=== PATIENT | male | born 1990 | race African-American/Black ===

== ENCOUNTER 2020-10-12 09:25 | Outpatient (REF) | payer OTHER, SELFPAY ==
[2020-10-12 11:36] LABS: Eosinophils Percent Auto 0.7 % (0-4); Hematocrit 45.3 % (42-52); Hemoglobin 15.1 g/dl (14.0-18.0); Imm Gran Abs Auto 0.01 X10*3/uL (0.00-0.03); Imm Gran Pct Auto 0.3 % (0.0-0.4); Lymphocytes Absolute Auto 1.1 X10*3/uL (1.2-4.9); Lymphocytes Percent Auto 35.5 % (20-40); MANUAL DIFF FLAG SCAN; Mean Corpuscular HGB Conc 33.3 g/dl (31.0-36.0); Mean Corpuscular Hemoglobin 27.8 pg (27.0-33.0); Mean Corpuscular Volume 83.4 fL (80-98); Mean Platelet Volume 12.7 fL (9.4-12.4); Monocytes Absolute Auto 0.6 X10*3/uL (0.1-1.2); Monocytes Percent Auto 18.9 % (2-11); Neutrophils Absolute Auto 1.3 X10*3/uL (2.0-8.3); Neutrophils Percent Auto 43.6 % (45-73); Platelet Count 141 X10*3/uL (160-400); Red Blood Count 5.43 X10*6/uL (4.60-5.80); Red Cell Distribution Width 14.4 % (11.0-16.0); SCAN SMEAR FLAG 1
[2020-10-12 11:57] LABS: Anion Gap 13 (12-20); Blood Urea Nitrogen 10 mg/dL (9-16); Calcium 9.3 mg/dL (8.4-10.2); Carbon Dioxide 25 mmol/L (22-29); Chloride 104 mmol/L (96-108); Estimated Glomerular Filt Rate > 60; Glucose Random 108 mg/dL (60-115); Potassium 3.9 mmol/L (3.3-5.1); Sodium 138 mmol/L (135-145)
[2020-10-12 12:54] LABS: SLIDE REVIEW VERIFIED
== END 2020-10-12 09:26 | disposition home or self-care (01) ==
LOC: HO.HMGCLDS 09:25
PROVIDERS: Visit Provider Nurse Practitioner Family
DX: R51.9 Headache, unspecified (principal)
CPT/HCPCS: 36415; 80048; 85025

== ENCOUNTER 2020-10-27 07:28 | Outpatient (REF) | payer OTHER, SELFPAY ==
--- NOTE | ~2020-10-27 | CT_ITS ---
EXAMINATION: CT HEAD WITHOUT CONTRAST CLINICAL INFORMATION: Headache. COMPARISON: None TECHNIQUE: Contiguous axial imaging was performed from the skull base to vertex without intravenous administration of contrast. This CT examination was performed using dose optimization techniques as appropriate, variously including the following: *Automated exposure control *Adjustment of mA and/or kV according to patient size (this includes techniques or standardized protocols for targeted exams where dose is matched to indication/reason for exam; i.e. extremities or head) *Use of iterative reconstruction technique DLP: 791 mGy-cm FINDINGS: There is no evidence of acute intracranial hemorrhage or territorial infarction. No abnormal mass effect or midline shift is seen. Vora to white matter differentiation is well preserved. No extra-axial fluid collections are identified. The ventricles are normal in size. There is no abnormal attenuation within the brain parenchyma. The osseous structures and soft tissues are normal. The mastoid air cells and visualized portions of the paranasal sinuses are well aerated. CT/CT head/brain wo con IMPRESSION: No acute intracranial pathology.
== END 2020-10-27 07:29 | disposition home or self-care (01) ==
LOC: HO.CT 07:28
PROVIDERS: Visit Provider Nurse Practitioner Family
DX: R51.9 Headache, unspecified (principal)
CPT/HCPCS: 70450

== ENCOUNTER 2021-01-03 08:53 | Outpatient (REF) | payer OTHER, SELFPAY ==
[2021-01-03 12:01] LABS: Monotest Negative (Negative)
[2021-01-04 17:17] LABS: EBV-VCA IgM Ab <36.00 U/mL
== END 2021-01-03 08:54 | disposition home or self-care (01) ==
LOC: HO.HMGCLDS 08:53
PROVIDERS: Visit Provider Nurse Practitioner Family
DX: B97.89 Other viral agents as the cause of diseases classified elsewhere (principal); J02.8 Acute pharyngitis due to other specified organisms
CPT/HCPCS: 36415; 86308; 86664; 86665

== ENCOUNTER 2021-05-28 16:52 | Outpatient (REF) | payer OTHER, SELFPAY ==
--- NOTE | ~2021-05-28 | XR_ITS ---
EXAMINATION: XR CHEST CLINICAL INFORMATION: Chest pain. COMPARISON: None TECHNIQUE: 2 views of the chest were obtained. FINDINGS: No significant abnormality is noted involving the heart, lungs, mediastinum, bony thorax or soft tissues. XR/XR chest 2V IMPRESSION: Unremarkable examination.
== END 2021-05-28 16:53 | disposition home or self-care (01) ==
LOC: HO.HMGCX 16:52
PROVIDERS: PCP Physician Assistant; Visit Provider Physician Assistant
DX: R07.9 Chest pain, unspecified (principal)
CPT/HCPCS: 71046

== ENCOUNTER 2021-09-17 17:59 | Emergency (ER) | payer SELFPAY ==
[2021-09-17 19:26] VITALS: BP 151/101; PULSE 91; RESP 16; TEMP 36.8; O2SAT 98; BMI 30.7
--- NOTE | 2021-09-17 19:57 | ED.LOWEXIN ---
HPI - Extremity Injury (Lower) General Chief Complaint: Extremity Injury, Lower Stated Complaint: Leg inj Time Seen by Provider: 09/17/21 19:57 Source: patient Mode of arrival: ambulatory Limitations: no limitations History of Present Illness HPI Narrative: Patient is a 30 year old male presenting to the emergency department today with right leg pain. 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 Patient denies any numbness, tingling, dizziness, lightheadedness, abdominal pain, nausea, vomiting, fever, chills, blurry vision, double vision, loss of vision, chest pain, difficulty breathing, shortness of breath, back pain, night sweats, pain with urination, increased urinary frequency, increased urinary urgency, blood in his urine or stool, syncope or a near syncopal episode, bowel incontinence, bladder incontinence, bowel retention, bladder retention, or any other complaints at this time. Patient describes the pain as sharp and going from the top of the back of his left leg to his knee. Patient rates the pain at a 3/10. Onset (ago): hour(s) Place: home Severity: mild Severity scale (1-10): 3 Relieving factors: nothing Exacerbating factors: nothing Other symptoms: none Related Data Previous Rx's Medication Instructions Recorded miscellaneous medical supply #1 ea 08/13/21 (Blood Pressure Cuff) cyclobenzaprine 10 mg tablet 10 mg PO TID PRN 7 Days #20 tab 09/17/21 naproxen 500 mg tablet 500 mg PO BID PRN 7 Days #14 tab 09/17/21 Allergies Allergy/AdvReac Type Severity Reaction Status Date / Time No Known Allergies Allergy Verified 08/13/21 13:33 [No Known Allergies*] Review of Systems Constitutional: Constitutional: Reports no additional constitutional complaints, Denies chills, Denies fever(s) and Denies night sweats Eyes: Eyes: Reports no additional eye complaints, Denies blurry vision, Denies change in vision, Denies diplopia, Denies eye discharge, Denies loss of vision and Denies eye pain ENT: Denies dizziness Cardiovascular: Cardiovascular: Reports no additional cardiovascular complaints, Denies chest pain, Denies lightheadedness, Denies Loss of Consciousness and Denies dyspnea Respiratory: Respiratory: Reports no additional respiratory complaints and Denies dyspnea Gastrointestinal: Gastrointestinal: Reports no additional gastrointestinal complaints, Denies abdominal pain, Denies melena, Denies hematochezia, Denies change in bowel habits and Denies change in stool character Genitourinary: Genitourinary: Reports no additional male genitourinary complaints, Denies hematuria, Denies oliguria, Denies difficulty urinating, Denies dysuria, Denies urinary frequency, Denies urinary hesitancy, Denies urinary incontinence and Denies urinary urgency Musculoskeletal: Musculoskeletal: Reports no additional musculoskeletal complaints, Denies numbness and Denies tingling Comments: sharp pain to the back of the left leg Neurologic: Denies dizziness, Denies loss of vision, Denies numbness and Denies tingling Psychiatric: Psychiatric: Reports no additional psychiatric complaints Endocrine: Endocrine: Reports no additional endocrine complaints Hematologic/Lymphatic: Hematologic/Lymphatic: Reports no additional hematologic/lymphatic complaints Allergic/Immunologic: Allergic/Immunologic: Reports no additional allergic/immunologic complaints PMFSH Past Medical History Attestation statement: The following information was validated with the patient. 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 Exam Vital Signs: Vital Signs: Last Vital Signs Temp 98.3 F 09/17/21 19:26 Pulse 91 09/17/21 19:26 Resp 16 09/17/21 19:26 BP 151/101 H 09/17/21 19:26 Pulse Ox 98 09/17/21 19:26 BMI result Body Mass Index 30.7 Const: General: cooperative, no acute distress, alert and awake Nutritional Appearance: well nourished Orientation/consciousness: patient oriented x3 Limitations: no limitations HENMT: Head: Yes normal to inspection and Yes atraumatic Ears: hearing grossly normal bilaterally and external ears normal General nose exam: Normal external nose present, no nasal discharge noted and no epistaxis Face and sinus: Yes normal facial exam, No abrasion and No laceration Mouth: Normal oral and palatal mucosa present, no drooling and no muffled voice Eyes: General: appearance normal, both eyes and all related structures Periorbital: periorbital findings normal Eyelids: Yes eyelids normal Conjunctivae: conjunctivae normal Pupils: Equal, round and reactive pupils present EOM: EOMs intact bilaterally Neck: Neck: Yes normal visual inspection, Yes full ROM and Yes no lymphadenopathy Chest: Chest palpation & inspection: normal inspection of the chest Resp: Effort & Inspection: normal respiratory effort and able to speak in complete sentences Auscultation: clear to auscultation bilaterally Cardio: Rate: regular rate Rhythm: regular rhythm GI: Inspection: Yes normal to inspection : General: Yes no CVA tenderness Back/Spine/Pelvis: Back: no CVA tenderness Thoracic/Lumbar Spine: thoracic and lumbar spine normal to inspection and thoraco-lumbar ROM normal Neuro: General: patient oriented x3 and moves all extremities Cranial nerves: Yes Equal, round and reactive pupils present Cognition (Neuro): normal cognition Motor exam (neuro): 5/5 motor strength present throughout Sensory Exam: Normal double simultaneous stimulation for sensation Coordination: [id number] test normal Extrem: General: Yes normal to inspection, Yes full ROM and Yes capillary refill normal Psych: Appearance: grossly normal Mental Status: mental status grossly normal Affect: normal affect Attitude: cooperative Thought process: Normal thought process present Thought content: Normal thought content present Insight: Good insight present (Psych) MDM - Extremity Injury (Lower) MDM Narrative Medical decision making narrative: Patient is a 30 year old male presenting to the emergency department today with pain to the back of the right leg. Patient's physical exam was unremarkable, including a normal neurological exam. I explained my physical exam findings to the patient. I answered all questions asked by the patient. Patient received IM Toradol and PO Flexeril which he stated helped his symptoms significantly. I explained to the patient that this is likely a sciatic nerve issue. Patient stated that he would like crutches because standing on the left leg causes pain. I explained to the patient that I can provide him crutches but we do not usually give them to patient's for sciatic nerve pain of the leg. I explained that insurance may not cover this expense. He verbalized understanding and requested them anyway. I stressed the importance of the patient taking his medication as prescribed. I stressed the importance of the patient following up with his primary care provider. I stressed the importance of the patient returning to the emergency department immediately if his symptoms were to worsen or if he were to develop any dizziness, shortness of breath, difficulty breathing, chest pain, blurry vision, loss of vision, nausea, vomiting, abdominal pain, fever, chills, back pain, or any other complaints. Patient verbalized agreement and understanding with this treatment plan and discharge. Differential Diagnosis Differential diagnosis: Unlikely ankle fracture (sciatic nerve pain, left leg pain) Medical Records Attestation: I reviewed the patient's medical records. Discharge Plan Discharge Clinical Impression: Sciatic leg pain Patient Disposition: Home, Self-Care Instructions: Sciatica (ED) Additional Instructions: Follow up with your primary care provider. Return to the emergency department immediately if your symptoms worsen or if you develop any dizziness, shortness of breath, difficulty breathing, chest pain, blurry vision, loss of vision, nausea, vomiting, abdominal pain, fever, chills, back pain, or any other complaints. Prescriptions: New cyclobenzaprine 10 mg tablet 10 mg PO TID PRN (Reason: muscle spasm) 7 Days Qty: 20 0RF naproxen 500 mg tablet 500 mg PO BID PRN (Reason: pain) 7 Days Qty: 14 0RF No Action (DME) Blood Pressure Cuff Misc See Rx Instructions .ROUTE .MEDSUPPLY Qty: 1 0RF Rx Instructions: As directed Referrals: Mike Alfonso PA-C [Primary Care Provider] - 2 days Stand Alone Forms: Work/School Release Interventions: ED Discharge Assessment Last Done: 09/17/21 20:36 Discharge Date/Time: 09/17/21 20:38 Print Language: Turkmen
[2021-09-17] MEDS: Ketorolac Tromethamine 30 MG/ML VIAL IM (20:16)
[2021-09-17] MEDS: Cyclobenzaprine HCl 10 MG TABLET PO (20:16)
== END 2021-09-17 20:38 | disposition home or self-care (01) ==
PROVIDERS: Emergency Provider Emergency Medicine; PCP Physician Assistant
DX: M54.31 Sciatica, right side (principal); M79.661 Pain in right lower leg
CPT/HCPCS: 96372; 99283; 99284; J1885

== ENCOUNTER 2022-05-21 18:29 | Outpatient (REF) | payer BC, SELFPAY ==
[2022-05-22 15:57] LABS: CT PCR NOT DETECTED (Not Detect.); NG PCR DETECTED (Not Detect.)
== END 2022-05-21 18:30 | disposition home or self-care (01) ==
LOC: HO.LNP 18:29
PROVIDERS: Visit Provider Internal Medicine
DX: Z11.3 Encounter for screening for infections with a predominantly sexual mode of transmission (principal); N34.2 Other urethritis
CPT/HCPCS: 87491; 87591

== ENCOUNTER 2022-06-11 12:25 | Emergency (ER) | payer BC, SELFPAY ==
[2022-06-11 12:59] VITALS: BP 129/90; PULSE 84; RESP 16; TEMP 36.1; O2SAT 97; BMI 29.2
--- NOTE | 2022-06-11 13:00 | ED_ITS ---
HPI - General Adult General Chief complaint: Back Pain/Injury <Pilar Nolasco MD - Last Filed: 06/11/22 13:06> Stated complaint: Sciatic pain <Pilar Nolasco MD - Last Filed: 06/11/22 13:06> Time Seen by Provider: 06/11/22 15:53 <Pilar Nolasco MD - Last Filed: 06/11/22 13:06> Source: patient <Elvia Baron SHENG Mejias - Last Filed: 06/11/22 18:30> History of Present Illness HPI narrative: Patient is a 31-year-old male who presents to emergency department for evaluation of atraumatic it acute on chronic right lower back pain radiating to the leg. States that first experienced this in September of 2021, was evaluated in the emergency department and diagnosed with sciatica. States he took 2 medications as prescribed in his pain improved. He has had a few episodes since then but not as severe. Today he states that he awoke from sleep with severe pain to the right lower back radiating down the posterior leg and down to the mid calf. Denies any swelling, redness to the calf. Denies prior history of DVT/PE. Denies recent precipitating injury, fevers, chills, burning with micturition, urinary frequency/urgency/hesitancy, bladder or bowel dysfunction, numbness or tingling of the perineum or bilateral legs. Denies any recent surgical procedures, any known immune compromising conditions, personal history of cancer, or IV drug usage. <Elvia Mejias CNP - Last Filed: 06/11/22 18:30> Related Data Home medications: Previous Rx's Medication Instructions Recorded azithromycin 250 mg tablet See Rx Instructions PO .COMPLEX #4 05/21/22 tabs ciprofloxacin HCl 500 mg tablet 500 mg PO DAILY #1 tab 05/21/22 (Cipro) cyclobenzaprine 10 mg tablet 10 mg PO TID PRN muscle spasm #20 06/11/22 tabs naproxen 500 mg tablet 500 mg PO BID PRN pain #14 tabs 06/11/22 <Pilar Nolasco MD - Last Filed: 06/11/22 13:06> Allergies/adverse reactions: Allergies Allergy/AdvReac Type Severity Reaction Status Date / Time No Known Allergies Allergy Verified 05/21/22 16:42 [No Known Allergies*] <Pilar Nolasco MD - Last Filed: 06/11/22 13:06> Review of Systems Review of Systems: Constitutional: No weight loss, fever, chills, weakness or fatigue. Skin: No rash or itching. Cardiovascular: No chest pain, chest pressure or chest discomfort. No palpitations or pedal edema. Respiratory: No shortness of breath, cough or sputum production. Gastrointestinal: No anorexia, nausea, vomiting or diarrhea. No abdominal pain Genitourinary: No burning micturition. No urinary frequency or incontinence. Neurologic: No headache, dizziness, syncope, unilateral weakness, ataxia, numbness or tingling in the extremities. No change in bowel or bladder control. Musculoskeletal: + Back pain as noted in HPI. No joint pain or stiffness. Hematologic: No bleeding or bruising. Lymphatics: No enlarged lymph nodes. Psychiatric:No depression or anxiety. <Elvia Mejias CNP - Last Filed: 06/11/22 18:30> Yes all other systems are reviewed and are negative <Elvia Mejias CNP - Last Filed: 06/11/22 18:30> FORMERLY [facility], [facility] Past Medical History Attestation statement: The following information was validated with the patient. <Elvia Mejias CNP - Last Filed: 06/11/22 18:30> Source: old records reviewed <Elvia Mejias CNP - Last Filed: 06/11/22 18:30> Surgical History: Surgical History H/O hernia repair <Pilar Nolasco MD - Last Filed: 06/11/22 13:06> Family History Family History: Family History Mother HTN (hypertension) <Pilar Nolasco MD - Last Filed: 06/11/22 13:06> Social History Social History: Social History Housing: House Alcohol intake: current Alcohol intake frequency: a few times a month Alcohol type: wine Patient Tobacco Use Status: Former Tobacco user Substance Use Type: Marijuana Advance Directives: No Advance Directives Information Provided: No service: No Current occupational status: employed 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 <Pilar Nolasco MD - Last Filed: 06/11/22 13:06> Physical Exam ED Vital Signs: Vital Signs - 24 hr 06/11/22 12:59 06/11/22 16:16 Temperature 97 F 98.0 F Pulse Rate 84 65 Respiratory Rate 16 18 Blood Pressure 129/90 H 140/92 H Pulse Oximetry 97 96 Oxygen Delivery Method Room Air Room Air BMI result Body Mass Index 29.2 <Pilar Nolasco MD - Last Filed: 06/11/22 13:06> Vital Signs - 24 hr 06/11/22 12:59 06/11/22 16:16 Temperature 97 F 98.0 F Pulse Rate 84 65 Respiratory Rate 16 18 Blood Pressure 129/90 H 140/92 H Pulse Oximetry 97 96 Oxygen Delivery Method Room Air Room Air BMI result Body Mass Index 29.2 <Elvia Mejias CNP - Last Filed: 06/11/22 18:30> Appearance: Alert.?Oriented to person, place and time. No acute distress.?Normal affect. Eyes: Pupils equal, round and reactive to light.? ENT: Pharynx normal.?? Neck: Normal inspection.? Neck supple.?? CVS: Heart sounds normal. Normal heart rate and rhythm.? Pulses normal; bilateral radial pulses 2+, bilateral posterior tibial/dorsalis pedis pulses 2+.? Respiratory: No respiratory distress.? Lung sounds clear to auscultation bilaterally?? Abdomen: Soft and non-tender. Normoactive bowel sounds. No pulsatile mass.?? Skin: Skin warm and dry.? Normal skin color.? Normal skin turgor.?? Extremities: No lower extremity edema.? No calf ttp? Back: + mild paraspinal muscular tenderness from lumbar region to coccyx. No CVA tenderness. No midline spinal tenderness, step-off's, or deformity. Full ROM intact in bilateral lower extremities. Straight leg test positive on right; Straight leg test negative on left. No rashes, lesions, areas of induration or fluctuance, or signs of infection noted., Neuro: Moves all extremities spontaneously. 5/5 strength in hip extension/flexion, abduction, adduction. Sensation to light touch intact bilaterally. Patellar and Achilles reflex 2+ bilaterally. No ataxia, gait normal and steady. No focal neuro deficits. <Elvia Mejias CNP - Last Filed: 06/11/22 18:30> Course Course Course Narrative: 31M c/o acute on chronic sciatica type pain. no trauma, describes pain from right buttock down posterior RLE. Has not tried anything for this today. Denies sickle cell history or taking any medications for medical conditions. VS Reviewed GEN: NAD EARS: wnl THROAT: wnl LUNGS: CTAB CVS: RRR RLE: neurovasc is intact, pt in wheelchair. ABD: NT/ND <Pilar Nolasco MD - Last Filed: 06/11/22 13:06> Medical Decision Making Medical Decision Making MDM Narrative: Patient is a 31-year-old male who presents emergency department for evaluation of acute on chronic lower back pain. Appears uncomfortable upon movement, however nontoxic. Pain appears most consistent with muscular pain, although cannot completely exclude herniated disc. On neurological exam there are no deficits. Not consistent with spinal fracture, spinal infection, epidural abscess, AAA, epidural abscess, or dissection. No high risk past medical history including incontinence, fever, immunosuppression, recent surgery or lumbar puncture, coagulopathy, significant trauma, recent unintentional weight loss, pulsatile mass, history of cancer, history of TB, history of IV drug use that would warrant MRI or CT. Not consistent with pyelonephritis, urinary tract infection, renal calculi, appendicitis, On exam no concern for cauda equina syndrome. No imaging is currently indicated at this time. Plan for discharge home with new prescription for cyclobenzaprine and naproxen, reviewed worrisome signs and symptoms to return back to emergency department for, advised follow-up with primary care provider, and patient agreed with plan. <Elvia Mejias CNP - Last Filed: 06/11/22 18:30> Differential Diagnoses: Differential diagnosis Differential Diagnosis: The differential diagnosis associated with the patient?s presentation includes: Lumbar strain, lumbar radiculopathy, spinal fracture, spinal infection, epidural abscess, AAA, epidural abscess, dissection, pyelonephritis, urinary tract infection, renal calculi, appendicitis, <Elvia Mejias CNP - Last Filed: 06/11/22 18:30> Tests considered but not performed: Tests Considered But Not Performed The following testing was considered but ultimately not selected after discussio n with patient/family. Urinalysis, no urinary frequency, hesitancy, urgency, or dysuria. Low suspicion for UTI/pyelonephritis. Used shared decision making with patient. Considered lumbar spine x-ray, however atraumatic, low suspicion for fracture or subluxation. Considered CT versus MRI, however no high-risk past medical history, focal neurological findings, a concern for cauda equina syndrome, therefore CT/MRI was deferred. <Elvia Mejias CNP - Last Filed: 06/11/22 18:30> Discharge Plan Discharge Clinical Impression: Lumbar radiculopathy <Pilar Nolasco MD - Last Filed: 06/11/22 13:06> Patient Disposition: Home, Self-Care <Pilar Nolasco MD - Last Filed: 06/11/22 13:06> Instructions: Lumbar Radiculopathy (ED), Lower Back Exercises (ED) <Pilar Nolasco MD - Last Filed: 06/11/22 13:06> Additional Instructions: Be sure to rest, apply ice/heat to the area of pain for 10-15 minutes 4-6 times daily. You can take Tylenol 500 mg, 2 tablets (1,000mg) every 4-6 hours as needed for pain, but not to exceed 3 doses daily (3,000mg).? Prescription for naproxen and cyclobenzaprine were sent to your pharmacy, please use as needed for pain. Cyclobenzaprine is a muscle relaxer which may make you drowsy, he should not drive, drink alcohol, go to work, or operate machinery while taking this medication. Follow-up with your primary care provider for persistent symptoms. Return to emergency department with any new or worsening symptoms or concerns. <Pilar Nolasco MD - Last Filed: 06/11/22 13:06> Prescriptions: New cyclobenzaprine 10 mg tablet 10 mg PO TID PRN (Reason: muscle spasm) Qty: 20 0RF naproxen 500 mg tablet 500 mg PO BID PRN (Reason: pain) Qty: 14 0RF No Action ciprofloxacin HCl [Cipro] 500 mg tablet 500 mg PO DAILY Qty: 1 0RF azithromycin 250 mg tablet See Rx Instructions PO .COMPLEX Qty: 4 0RF Rx Instructions: All 4 pills taken together <Pilar Nolasco MD - Last Filed: 06/11/22 13:06> Referrals: Mike Alfonso PA-C [Primary Care Provider] - <Pilar Nolasco MD - Last Filed: 06/11/22 13:06> Stand Alone Forms: Work/School Release <Pilar Nolasco MD - Last Filed: 06/11/22 13:06> Interventions: ED Discharge Assessment Last Done: 06/11/22 16:35 <Pilar Nolasco MD - Last Filed: 06/11/22 13:06> Discharge Date/Time: 06/11/22 16:40 <Pilar Nolasco MD - Last Filed: 06/11/22 13:06>
[2022-06-11 16:16] VITALS: BP 140/92; PULSE 65; RESP 18; TEMP 36.7; O2SAT 96
== END 2022-06-11 16:40 | disposition home or self-care (01) ==
PROVIDERS: Emergency Provider Emergency Medicine; PCP Physician Assistant
DX: M54.16 Radiculopathy, lumbar region (principal); M54.50 Low back pain, unspecified
CPT/HCPCS: 99282; 99283

== ENCOUNTER 2022-11-18 13:11 | Emergency (ER) | payer BC, SELFPAY ==
--- NOTE | ~2022-11-18 | XR_ITS ---
EXAMINATION: XR ANKLE, LEFT XR FOOT, LEFT CLINICAL INFORMATION: Fall, trauma, pain COMPARISON: None TECHNIQUE: 2 views left ankle, 2 views left foot, and a lateral view of the combined left ankle and foot are obtained for a total of 5 views. FINDINGS: There is no fracture or dislocation. The malleoli are intact and the ankle mortise is symmetric. Talar dome shows no osteochondral lesion. No visible ankle capsular effusion. The retrocalcaneal recess is preserved. Subtalar joint is unremarkable. There is a small plantar and borderline posterior calcaneal spur. The midfoot and forefoot show no fracture or dislocation or arthropathy. XR/XR foot LT 2V IMPRESSION: - No fracture or dislocation. - Small calcaneal spurs.
--- NOTE | ~2022-11-18 | XR_ITS ---
EXAMINATION: XR ANKLE, LEFT XR FOOT, LEFT CLINICAL INFORMATION: Fall, trauma, pain COMPARISON: None TECHNIQUE: 2 views left ankle, 2 views left foot, and a lateral view of the combined left ankle and foot are obtained for a total of 5 views. FINDINGS: There is no fracture or dislocation. The malleoli are intact and the ankle mortise is symmetric. Talar dome shows no osteochondral lesion. No visible ankle capsular effusion. The retrocalcaneal recess is preserved. Subtalar joint is unremarkable. There is a small plantar and borderline posterior calcaneal spur. The midfoot and forefoot show no fracture or dislocation or arthropathy. XR/XR ankle LT 2V IMPRESSION: - No fracture or dislocation. - Small calcaneal spurs.
--- NOTE | ~2022-11-18 | XR_ITS ---
EXAMINATION: XR KNEE, LEFT CLINICAL INFORMATION: Fall, trauma, pain COMPARISON: None available. TECHNIQUE: Four views of the left knee. FINDINGS: There is no fracture or dislocation. Bony mineralization appears normal. There is a probable suprapatellar effusion. Hoffa's fat pad appears normal. No joint narrowing or erosive change. XR/XR knee LT 3V IMPRESSION: - No fracture or dislocation. - Probable suprapatellar effusion.
[2022-11-18 13:45] VITALS: BP 164/106; PULSE 100; RESP 16; TEMP 36.6; O2SAT 97; BMI 28.6
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
--- NOTE | 2022-11-18 13:56 | MHC.EDTECH ---
Labs collected and sent
[2022-11-18 14:06] LABS: Hemoglobin 14.3 g/dl (14.0-18.0); Mean Corpuscular HGB Conc 33.3 g/dl (31.0-36.0); Mean Corpuscular Hemoglobin 28.1 pg (27.0-33.0); Mean Corpuscular Volume 84.5 fL (80.0-98.0); Mean Platelet Volume 10.3 fL (9.4-12.4); Platelet Count 311 X10*3/uL (160-400); Red Blood Count 5.09 X10*6/uL (4.60-5.80); Red Cell Distribution Width 15.1 % (11.0-16.0); White Blood Count 10.8 X10*3/uL (4.8-10.8)
--- NOTE | 2022-11-18 14:14 | PC.NURSE ---
Addendum entered by Haley Bland LPN 11/18/22 14:15: soaking right hand. Original Note: patient in room soaking hand in saline/iodine mix. Patient calm and cooperative.
[2022-11-18 14:23] LABS: Alanine Aminotransferase 33 U/L (0-40); Albumin Level 4.1 g/dL (3.5-5.0); Alkaline Phosphatase 71 U/L (39-117); Anion Gap 13 (12-20); Aspartate Amino Transferase 33 U/L (5-37); Bilirubin Direct 0.3 mg/dL (0.0-0.5); Bilirubin Total 1.1 mg/dL (0.0-1.0); Blood Urea Nitrogen 7 mg/dL (9-16); Calcium 9.4 mg/dL (8.4-10.2); Carbon Dioxide 26 mmol/L (22-29); Chloride 102 mmol/L (96-108); Creatinine Clr Calc Pharmacy 117.7; Estimated Glomerular Filt Rate > 60; Glucose Random 95 mg/dL (60-115); Potassium 3.9 mmol/L (3.3-5.1); Sodium 137 mmol/L (135-145); Total Protein 7.9 g/dL (6.5-8.0)
[2022-11-18 14:39] LABS: Atypical Lymph Absolute Manual 1.5 x10*3/uL; Atypical Lymphs Percent Manual 14 % (0-6); Band Neutrophils Percent 4 % (3-5); Basophils Abs Manual 0.1 X10*3/uL (0.0-0.2); Basophils Percent Manual 1 % (0-2); Lymphocytes Absolute Manual 2.2 X10*3/uL (1.2-4.9); Lymphocytes Percent Manual 20 % (20-40); Monocytes Absolute Manual 1.1 X10*3/uL (0.1-1.2); Monocytes Percent Manual 10 % (2-11); Neutrophils Absolute Manual 5.9 X10*3/uL (2.0-8.3); Neutrophils Percent Manual 51 % (45-73)
[2022-11-18 14:40] LABS: Platelet Estimate NORMAL (NORMAL); Platelet Morphology Comment NORMAL; RBC Morphology NORMAL
[2022-11-18] MEDS: Amoxicillin/Potassium Clav 875 MG TABLET PO (16:07)
[2022-11-20 07:23] LABS: HBS Num1 20.49 mIU/mL (0-7.99); HBc Num1 0.17 S/CO (0.00-0.79); HBsAGNum1 0.31 S/CO (0.00-0.99); HIV AB/AG Nonreactive (Nonreactive); HIV Num 1 0.08 S/CO (0.00-0.99); Hepatitis B Core Antibody Nonreactive (Nonreactive); Hepatitis B Surface Antigen Negative (Negative); ~HepC Num1 0.21 S/CO (0.00-0.79); ~Hepatitis B Surface Antibody REACTIVE (Nonreactive); ~Hepatitis C Antibody Nonreactive (Nonreactive)
== END 2022-11-18 16:18 | disposition home or self-care (01) ==
PROVIDERS: Nurse Practitioner Family; Emergency Provider Student in an Organized Health Care Education/Training Program; PCP Physician Assistant
DX: S61.051A Open bite of right thumb without damage to nail, initial encounter (principal); M25.562 Pain in left knee; M79.672 Pain in left foot; M25.572 Pain in left ankle and joints of left foot; W50.3XXA Accidental bite by another person, initial encounter; Y93.9 Activity, unspecified; Y92.9 Unspecified place or not applicable; Y99.0 Civilian activity done for income or pay; Z79.899 Other long term (current) drug therapy; Z20.828 Contact with and (suspected) exposure to other viral communicable diseases
CPT/HCPCS: 36415; 73562; 73600; 73620; 80048; 80076; 85007; 85025; 85027; 86704; 86706; 86803; 87340; 87389; 99282; 99283

== ENCOUNTER 2023-10-01 19:49 | Inpatient (IN) | payer MEDICAID, SELFPAY ==
[2023-10-01 20:08] VITALS: BP 155/108; BP 180/10; PULSE 114; PULSE 123; RESP 18; O2SAT 100; O2SAT 97; BMI 28.3
--- NOTE | 2023-10-01 20:35 | PC.NURSE ---
Called [facility] for patient advocate. States they cannot come out until pt is medically cleared.
--- NOTE | 2023-10-01 21:07 | ECG_ITS ---
Test Reason : ALTERED MENTAL STATE Blood Pressure : / mmHG Vent. Rate : 076 BPM Atrial Rate : 076 BPM P-R Int : 156 ms QRS Dur : 098 ms QT Int : 404 ms P-R-T Axes : 069 -70 048 degrees QTc Int : 454 ms Normal sinus rhythm with sinus arrhythmia Left axis deviation Abnormal ECG No previous ECGs available Referred By: Niesha Garay Electronically Signed By:Austin Isidro
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
--- NOTE | 2023-10-01 21:21 | MHC.EDTECH ---
Pt refusing to have EKG done at this time. RN and Provider aware.
[2023-10-01 21:36] LABS: Amphetamine Screen Urine Not Detected (Not Detect); Barbiturates, Urine Not Detected (Not Detect); Benzodiazepines Screen Urine Not Detected (Not Detect); Cannabinoid Screen Urine Not Detected (Not Detect); Cocaine Screen Urine POSITIVE (Not Detect); Fentanyl, urine POSITIVE (Not Detect); Opiate Screen Urine Not Detected (Not Detect); Phencyclidine Screen Urine Not Detected (Not Detect)
[2023-10-01 22:03] LABS: MANUAL DIFF FLAG NO
[2023-10-01 22:06] LABS: Basophils Absolute Auto 0.1 X10*3/uL (0.0-0.2); Basophils Percent Auto 0.6 % (0-2); Eosinophils Percent Auto 0.1 % (0-4); Hematocrit 45.2 % (42.0-52.0); Hemoglobin 15.4 g/dl (14.0-18.0); Imm Gran Abs Auto 0.02 X10*3/uL (0.00-0.03); Imm Gran Pct Auto 0.2 % (0.0-0.4); Lymphocytes Absolute Auto 2.2 X10*3/uL (1.2-4.9); Lymphocytes Percent Auto 19.7 % (20-40); Mean Corpuscular HGB Conc 34.1 g/dl (31.0-36.0); Mean Corpuscular Hemoglobin 28.1 pg (27.0-33.0); Mean Corpuscular Volume 82.3 fL (80.0-98.0); Mean Platelet Volume 10.8 fL (9.4-12.4); Monocytes Absolute Auto 0.8 X10*3/uL (0.1-1.2); Neutrophils Percent Auto 72.4 % (45-73); Platelet Count 306 X10*3/uL (160-400); Red Blood Count 5.49 X10*6/uL (4.60-5.80); Red Cell Distribution Width 14.4 % (11.0-16.0)
[2023-10-01 22:14] LABS: Prothrombin Time 12.6 SEC (11.1-13.3)
[2023-10-01 22:25] LABS: Alanine Aminotransferase 51 U/L (0-40); Albumin Level 4.7 g/dL (3.5-5.0); Alkaline Phosphatase 68 U/L (39-117); Anion Gap 16 (12-20); Aspartate Amino Transferase 35 U/L (5-37); Bilirubin Direct 0.5 mg/dL (0.0-0.5); Bilirubin Total 1.8 mg/dL (0.0-1.0); Blood Urea Nitrogen 10 mg/dL (9-16); Calcium 9.9 mg/dL (8.4-10.2); Carbon Dioxide 21 mmol/L (22-29); Chloride 103 mmol/L (96-108); Creatinine Clr Calc Pharmacy 143.8; Estimated Glomerular Filt Rate > 60; Ethanol < 10 mg/dL; Glucose Random 83 mg/dL (60-115); Potassium 3.3 mmol/L (3.3-5.1); Sodium 137 mmol/L (135-145); Total Protein 8.5 g/dL (6.5-8.0)
[2023-10-01 22:44] LABS: Troponin-I High Sensitivity 10.1 ng/L (<3.5-35.0)
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
--- NOTE | 2023-10-01 23:19 | PC.NURSE ---
per bellows charger assembler and dr miller pt changed over into ligature free clothing. pt belongings placed in brown evidence bags business control manager ky peralta from [facility] presented to ed. this rn and dr miller made business control manager aware of known information. business control manager to bedside for assessment. per business control manager pt stating hurts all over, I want to be tested for everything . pt unable to give details. per business control manager pt offered to speak privately pt declined.pt business control manager no sane kit deemed necessary. business control manager assumed responsibility for pt clothing collected. per business control manager okay that pt cellphone shoes and keys remain at hospital business control manager kathryn called this rn back at 2310 stating follow up was conducted with pt roommate at [facility]. per pt roommate pt was noted to be out of it and left apartment around 1530. pt not noted to be in distress or in need of medical attention. business control manager provided this rn, dr miller, and pt with card
[2023-10-02] MEDS: LORazepam 1 MG TABLET 2 MG PO (00:05)
[2023-10-02] MEDS: diphenhydrAMINE HCL 25 MG CAPSULE 50 MG PO (00:06)
[2023-10-02] MEDS: HaloperidoL 5 MG TABLET PO (00:06)
--- NOTE | 2023-10-02 05:59 | PC.NURSE ---
Patient got transferred from main ED after patient was medically cleared, alert and oriented x 4, patient reported off his medication for days and he was recently discharged from [facility]. [facility] called three times at [phone] for medical record request but with no success, provider notified and ordered Haldol 5 mg po, Ativan 2 mg PO, and Benadryl 50 mg, administered as ordered at 0006 with + effect, patient slept through the night, care consult ordered/pending evaluation, patient is on 15 minutes safety check, no distress observed/reported, VSS, will continue to monitor
[2023-10-02 06:25] VITALS: RESP 17
--- NOTE | 2023-10-02 06:52 | PC.NURSE ---
Assumed care of patient at 0645, patient appears to be sleeping, respirations even and unlabored, no apparent distress noted. Awaiting CARE team eval
[2023-10-02 07:05] LABS: HBS Num1 7.55 mIU/mL (0-7.99); HIV AB/AG Nonreactive (Nonreactive); HIV Num 1 0.06 S/CO (0.00-0.99); Hepatitis A Antibody IgM 0.13 Index (0-0.79); Hepatitis B Core Antibody Nonreactive (Nonreactive); Hepatitis B Surface Antigen Negative (Negative); ~HepC Num1 0.19 S/CO (0.00-0.79); ~Hepatitis A Antibody IgM Nonreactive (Nonreactive); ~Hepatitis B Surface Antibody NONREACTIVE (Nonreactive); ~Hepatitis C Antibody Nonreactive (Nonreactive)
[2023-10-02 09:51] LABS: CT PCR NOT DETECTED (Not Detect.); NG PCR NOT DETECTED (Not Detect.)
--- NOTE | 2023-10-02 12:08 | PC.NURSE ---
Pt ambulated independently to bathroom to provide urine sample. Pt back in bed, respirations even and unlabored, no apparent distress noted
--- NOTE | 2023-10-02 12:09 | PC.NURSE ---
RE; med rec This RN spoke with ISAIAH Schneider who states she has the medications that pt was discharged with from [place]. med rec reflects this
[2023-10-02 12:13] LABS: Appearance Urine Cloudy; Color Urine Dark Yellow; Glucose Urine UA Negative (Negative); Leukocyte Esterase Urine Negative (Negative); Nitrite Urine Negative (Negative); PH 5.5 (5.0-9.0); Specific Gravity - Urine 1.025 (1.005-1.025); UMIC TRIGGER UACC YES; Urine Blood Negative (Negative); Urine Ketones 15 mg/dL (Negative); Urine Protein 30 (1+) mg/dL (Neg-Trace)
[2023-10-02 12:25] LABS: COVID-19 Test Negative (Negative); IDNOW Serial# 08D9AD1C
[2023-10-02 12:43] LABS: Bacteria Urine None Seen (None Seen); Hyaline Casts Urine 0-2 /LPF (0-2); RBC Urine 0-2 /HPF (0-2); WBC Urine 0-5 /HPF (0-5)
[2023-10-02 18:00] VITALS: PULSE 84; RESP 14; TEMP 36.6; O2SAT 99
[2023-10-02] MEDS: hydrOXYzine HCL 25 MG TABLET PO (19:26)
[2023-10-02] MEDS: busPIRone HCl 10 MG TABLET PO (19:26)
[2023-10-02] MEDS: Acetaminophen 325 MG TABLET 650 MG PO (19:27)
[2023-10-02 19:30] VITALS: BP 134/88; PULSE 84; RESP 16; TEMP 36.4; O2SAT 98
[2023-10-03 02:20] VITALS: BP 134/88; PULSE 84; RESP 16; TEMP 36.4; O2SAT 98
[2023-10-03 02:21] VITALS: BMI 28.3
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
[2023-10-03] MEDS: busPIRone HCl 10 MG TABLET PO ×2 (07:59→22:18)
[2023-10-03] MEDS: HaloperidoL 1 MG TABLET 3 MG PO (07:59)
[2023-10-03] MEDS: Escitalopram Oxalate 10 MG TABLET PO (07:59)
[2023-10-03 08:00] VITALS: BP 144/75; PULSE 92; RESP 16; TEMP 36.4; O2SAT 100
[2023-10-03 09:27] LABS: Estimated Average Glucose 97 mg/dL; Hemoglobin A1C 119.1652 umol/L
[2023-10-03 09:31] LABS: Cholesterol 199 mg/dL (<200); HDL Cholesterol 40 mg/dL (>40); LDL Cholesterol Calculated 125 mg/dL (<100); Magnesium 2.2 mg/dL (1.6-2.6); Triglycerides 170 mg/dL (<150)
[2023-10-03 09:48] LABS: Free T4 (Free Thyroxine) 1.12 ng/dL (0.71-1.85); Thyroid Stimulating Hormone 1.73 uIU/mL (0.32-4.0)
[2023-10-03 10:58] LABS: Folate 4.9 ng/mL (> or = 4.0); Vitamin B12 273 pg/mL (200-900)
--- NOTE | 2023-10-03 13:57 | PC.NURSE ---
pt declines flu shot
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
[2023-10-03 18:00] VITALS: BP 136/86; PULSE 78; RESP 16; TEMP 36.9; O2SAT 97
[2023-10-03] MEDS: cloNIDine HCL 0.1 MG TABLET PO (22:22)
[2023-10-04] MEDS: hydrOXYzine HCL 25 MG TABLET PO ×2 (04:16→17:28)
[2023-10-04 07:30] VITALS: BP 141/87; PULSE 69; RESP 15; TEMP 36.4; O2SAT 97
[2023-10-04] MEDS: HaloperidoL 1 MG TABLET 3 MG PO (08:24)
[2023-10-04] MEDS: Multivitamin TABLET 1 TAB PO (08:24)
[2023-10-04] MEDS: Escitalopram Oxalate 10 MG TABLET PO (08:24)
[2023-10-04] MEDS: busPIRone HCl 10 MG TABLET PO ×2 (08:24→20:33)
[2023-10-04] MEDS: Folic Acid 1 MG TABLET PO (08:24)
[2023-10-04] MEDS: Thiamine HCL 100 MG TABLET PO (08:24)
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
[2023-10-04 18:30] VITALS: BP 141/65; PULSE 73; RESP 18; TEMP 36.9; O2SAT 98
[2023-10-04] MEDS: traZODone HCL 50 MG TABLET PO (20:33)
[2023-10-04] MEDS: cloNIDine HCL 0.1 MG TABLET PO (20:33)
[2023-10-05] MEDS: hydrOXYzine HCL 25 MG TABLET PO ×3 (01:41→20:03)
[2023-10-05] MEDS: traZODone HCL 50 MG TABLET PO ×3 (03:00→21:23)
[2023-10-05] MEDS: cloNIDine HCL 0.1 MG TABLET PO ×2 (03:01→18:45)
[2023-10-05 08:36] VITALS: BP 115/62; PULSE 65; RESP 15; TEMP 36.3; O2SAT 100
[2023-10-05] MEDS: HaloperidoL 1 MG TABLET 3 MG PO ×2 (08:38→20:03)
[2023-10-05] MEDS: busPIRone HCl 10 MG TABLET PO ×2 (08:39→20:03)
[2023-10-05] MEDS: Folic Acid 1 MG TABLET PO (08:39)
[2023-10-05] MEDS: Multivitamin TABLET 1 TAB PO (08:39)
[2023-10-05] MEDS: Thiamine HCL 100 MG TABLET PO (08:39)
[2023-10-05] MEDS: Escitalopram Oxalate 10 MG TABLET PO (08:39)
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
[2023-10-05 18:00] VITALS: BP 129/69; PULSE 87; RESP 16; TEMP 37.7; O2SAT 97
[2023-10-06] MEDS: hydrOXYzine HCL 25 MG TABLET PO ×3 (04:24→19:17)
[2023-10-06 08:00] VITALS: BP 128/81; PULSE 67; RESP 16; TEMP 36.4; O2SAT 100
[2023-10-06] MEDS: Escitalopram Oxalate 10 MG TABLET PO (08:24)
[2023-10-06] MEDS: busPIRone HCl 10 MG TABLET PO ×2 (08:24→20:20)
[2023-10-06] MEDS: Thiamine HCL 100 MG TABLET PO (08:24)
[2023-10-06] MEDS: Multivitamin TABLET 1 TAB PO (08:24)
[2023-10-06] MEDS: Folic Acid 1 MG TABLET PO (08:24)
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
[2023-10-06 18:00] VITALS: BP 120/77; PULSE 67; RESP 16; TEMP 36.7; O2SAT 99
[2023-10-06 19:41] VITALS: BP 120/77; PULSE 67; RESP 18; TEMP 36.7; O2SAT 99
[2023-10-06] MEDS: traZODone HCL 50 MG TABLET PO (20:20)
[2023-10-06] MEDS: HaloperidoL 1 MG TABLET 3 MG PO (20:20)
[2023-10-06] MEDS: cloNIDine HCL 0.1 MG TABLET PO (20:20)
[2023-10-07] MEDS: hydrOXYzine HCL 25 MG TABLET PO (04:23)
[2023-10-07 08:00] VITALS: BP 127/65; PULSE 76; RESP 16; TEMP 36.3; O2SAT 99
[2023-10-07] MEDS: Escitalopram Oxalate 10 MG TABLET PO (08:35)
[2023-10-07] MEDS: Multivitamin TABLET 1 TAB PO (08:35)
[2023-10-07] MEDS: Folic Acid 1 MG TABLET PO (08:35)
[2023-10-07] MEDS: Thiamine HCL 100 MG TABLET PO (08:35)
[2023-10-07] MEDS: busPIRone HCl 10 MG TABLET PO (08:35)
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
== END 2023-10-07 11:05 | disposition home or self-care (01) | DRG 751 ==
LOC: HO.ED 10-02 07:56 → HO.PM5 10-02 15:06
PROVIDERS: Emergency Medicine; Admitting Provider Psychiatry & Neurology Psychiatry; Emergency Provider Emergency Medicine; PCP Physician Assistant; Visit Provider Clinical Nurse Specialist Psychiatric/Mental Health, Adult
DX: F33.9 Major depressive disorder, recurrent, unspecified (principal); F14.950 Cocaine use, unspecified with cocaine-induced psychotic disorder with delusions; Z91.148 Patient's other noncompliance with medication regimen for other reason; Z20.822 Contact with and (suspected) exposure to COVID-19; Z91.51 Personal history of suicidal behavior; Z79.899 Other long term (current) drug therapy
CPT/HCPCS: 0353U; 36415; 80048; 80061; 80076; 80307; 81001; 82607; 82746; 83036; 83735; 84439; 84443; 84484; 85025; 85610; 86704; 86706; 86709; 86803; 87340; 87389; 87635; 93005; 99285; S9485

== ENCOUNTER → 2023-10-01 21:07 | Outpatient (BNV) | payer MEDICAID, SELFPAY | PROVIDERS: Admitting Provider Psychiatry & Neurology Psychiatry; Emergency Provider Emergency Medicine; PCP Physician Assistant; Visit Provider Internal Medicine Cardiovascular Disease | DX: R41.82 Altered mental status, unspecified (principal) | CPT/HCPCS: 93010 ==

== ENCOUNTER → 2023-10-02 14:52 | Outpatient (BNV) | payer MEDICAID, SELFPAY | PROVIDERS: Admitting Provider Psychiatry & Neurology Psychiatry; Emergency Provider Emergency Medicine; PCP Physician Assistant; Visit Provider Clinical Nurse Specialist Psychiatric/Mental Health, Adult | DX: F19.959 Other psychoactive substance use, unspecified with psychoactive substance-induced psychotic disorder, unspecified (principal); F32.9 Major depressive disorder, single episode, unspecified | CPT/HCPCS: 90792; 99239 ==

== ENCOUNTER → 2023-10-02 14:52 | Outpatient (BNV) | payer SELFPAY | PROVIDERS: Admitting Provider Psychiatry & Neurology Psychiatry; Emergency Provider Emergency Medicine; PCP Physician Assistant; Visit Provider Psychiatry & Neurology Psychiatry | DX: F33.2 Major depressive disorder, recurrent severe without psychotic features (principal); F19.959 Other psychoactive substance use, unspecified with psychoactive substance-induced psychotic disorder, unspecified | CPT/HCPCS: 99232 ==

== ENCOUNTER 2023-10-11 18:09 | Inpatient (IN) | payer MEDICAID, OTHER, SELFPAY ==
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
[2023-10-11 18:22] VITALS: BP 154/104; PULSE 110; O2SAT 98
[2023-10-11 18:30] VITALS: BMI 25.8
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
[2023-10-11 18:42] VITALS: BP 140/89; PULSE 89; RESP 16; TEMP 36.8; O2SAT 99
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
[2023-10-11] MEDS: Lidocaine HCl 1%/Epi 1:100,000 10 ML VIAL INFILTRATI (19:03)
[2023-10-11] MEDS: Diphth,Pertus(ACell),Tet Adult 0.5 ML SYRINGE IM (19:03)
[2023-10-11 19:15] LABS: MANUAL DIFF FLAG NO
[2023-10-11 19:16] LABS: Basophils Percent Auto 0.6 % (0-2); Eosinophils Percent Auto 0.1 % (0-4); Hematocrit 41.8 % (42.0-52.0); Hemoglobin 14.1 g/dl (14.0-18.0); Imm Gran Abs Auto 0.01 X10*3/uL (0.00-0.03); Imm Gran Pct Auto 0.1 % (0.0-0.4); Lymphocytes Absolute Auto 2.3 X10*3/uL (1.2-4.9); Lymphocytes Percent Auto 31.6 % (20-40); Mean Corpuscular HGB Conc 33.7 g/dl (31.0-36.0); Mean Corpuscular Hemoglobin 27.9 pg (27.0-33.0); Mean Corpuscular Volume 82.8 fL (80.0-98.0); Mean Platelet Volume 10.7 fL (9.4-12.4); Monocytes Absolute Auto 1.1 X10*3/uL (0.1-1.2); Monocytes Percent Auto 14.7 % (2-11); Neutrophils Absolute Auto 3.8 x10*3/uL (2.0-8.3); Neutrophils Percent Auto 52.9 % (45-73); Platelet Count 257 X10*3/uL (160-400); Red Blood Count 5.05 X10*6/uL (4.60-5.80); Red Cell Distribution Width 14.2 % (11.0-16.0); White Blood Count 7.2 X10*3/uL (4.8-10.8)
[2023-10-11 19:31] LABS: Acetaminophen LAB < 3 mcg/mL (<30); Alanine Aminotransferase 74 U/L (0-40); Albumin Level 4.5 g/dL (3.5-5.0); Alkaline Phosphatase 63 U/L (39-117); Anion Gap 12 (12-20); Aspartate Amino Transferase 48 U/L (5-37); Bilirubin Total 0.9 mg/dL (0.0-1.0); Blood Urea Nitrogen 13 mg/dL (9-16); Calcium 9.7 mg/dL (8.4-10.2); Carbon Dioxide 24 mmol/L (22-29); Chloride 105 mmol/L (96-108); Creatinine Clr Calc Pharmacy 124.9; Estimated Glomerular Filt Rate > 60; Ethanol < 10 mg/dL; Glucose Random 104 mg/dL (60-115); Potassium 3.3 mmol/L (3.3-5.1); Salicylate < 5.0 mg/dL (15-30); Sodium 138 mmol/L (135-145); Total Protein 8.1 g/dL (6.5-8.0)
--- OUTSIDE RECORDS SUMMARY | 2023-10-11 19:46 | XMS_ITS | Continuity of Care Document ---
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 Name Role Phone Mike Butts Primary Care Physician [phone] Encounter [facility] Date(s): 10/09/23 - 10/10/[address] [id number]- Encounter Diagnosis Hallucinations(Final) - 10/10/23 Discharge Disposition: A-D/C Home Attending Physician: Luis Lundberg DO Admitting Physician: Luis Lundberg DO Referring Physician: Not on Staff, Referring MD Allergies, Adverse Reactions, Alerts No Known Medication Allergies Vital Signs Most recent to oldest [Reference Range]: 1 2 3 Oxygen Saturation [94-100 %] 97 % (10/10/23 11:56 AM) 96 % (10/10/23 9:07 AM) 96 % (10/10/23 3:29 AM) Pulse Rate [55-90 bpm] 88 bpm (10/10/23 11:56 AM) 90 bpm (10/10/23 9:07 AM) 101 bpm *H* (10/10/23 3:29 AM) Blood Pressure [90-138/55-84 mm Hg] 132/79mm Hg (10/10/23 11:56 AM) 125/79mm Hg (10/10/23 9:07 AM) 136/74mm Hg (10/10/23 3:29 AM) Respiratory Rate [16-30 br/min] 18 br/min (10/10/23 11:56 AM) 18 br/min (10/10/23 9:07 AM) 18 br/min (10/10/23 3:29 AM) Temperature [96.8-100.4 DegF] 98.1 DegF (10/10/23 11:56 AM) 97.9 DegF (10/10/23 9:07 AM) Mode of Delivery (Oxygen) Room air (10/10/23 11:56 AM) Room air (10/10/23 9:07 AM) Blood pressure sites Arm, left (10/10/23 11:56 AM) Arm, right (10/10/23 9:07 AM) Arm, right (10/10/23 3:29 AM) Temperature Route Oral (10/10/23 11:56 AM) Oral (10/10/23 9:07 AM) Note * Luis Lundberg DO: PERFORM, SIGN, VERIFY Event Display: Patient Education Handout Authored Date: Patient Care team information Care Team Personnel Name: Mike Butts Position: Reference Physician Member Role: PCP Address: Address: [address] [place], [place] [address]
[2023-10-11 20:31] LABS: Amphetamine Screen Urine Not Detected (Not Detect); Barbiturates, Urine Not Detected (Not Detect); Benzodiazepines Screen Urine Not Detected (Not Detect); Cannabinoid Screen Urine Not Detected (Not Detect); Cocaine Screen Urine POSITIVE (Not Detect); Fentanyl, urine Not Detected (Not Detect); Opiate Screen Urine Not Detected (Not Detect); Phencyclidine Screen Urine Not Detected (Not Detect)
[2023-10-11] MEDS: traZODone HCL 50 MG TABLET PO (22:14)
[2023-10-11] MEDS: busPIRone HCl 10 MG TABLET PO (22:14)
[2023-10-11] MEDS: Acetaminophen 325 MG TABLET 975 MG PO (22:14)
[2023-10-11] MEDS: HaloperidoL 1 MG TABLET 3 MG PO (22:15)
[2023-10-12 00:16] VITALS: BP 143/74; PULSE 91; RESP 18; TEMP 36.4; O2SAT 99
--- NOTE | 2023-10-12 07:20 | PC.NURSE ---
Assumed care of patient at 0645, patient appears to be sleeping, respirations even and unlabored, no apparent distress noted. Continue plan of care for inpatient bedsearch
[2023-10-12] MEDS: Multivitamin TABLET 1 TAB PO (09:12)
[2023-10-12] MEDS: Thiamine HCL 100 MG TABLET PO (09:12)
[2023-10-12] MEDS: Escitalopram Oxalate 10 MG TABLET PO (09:12)
[2023-10-12] MEDS: busPIRone HCl 10 MG TABLET PO ×2 (09:12→20:42)
[2023-10-12] MEDS: Folic Acid 1 MG TABLET PO (09:12)
[2023-10-12 10:19] VITALS: PULSE 87; RESP 16; O2SAT 97
[2023-10-12 15:39] VITALS: BP 138/88; PULSE 59; RESP 14; TEMP 36.6; O2SAT 99
--- NOTE | 2023-10-12 15:52 | PC.NURSE ---
Patient continues to rest on bed in BH 4, occasionally ambulating around pod. Patient talked on phone with a friend, appears to be in good spirits. Pt otherwise offers no complaints to this RN
[2023-10-12] MEDS: cloNIDine HCL 0.1 MG TABLET PO (17:00)
--- NOTE | 2023-10-12 19:33 | PC.NURSE ---
patient appears to remain asleep at present respirations are even and unlabored patient appears in no distress.
[2023-10-12] MEDS: HaloperidoL 1 MG TABLET 3 MG PO (20:42)
--- NOTE | 2023-10-13 | ECG_ITS ---
Test Reason : qtc prolongation ruleout Blood Pressure : / mmHG Vent. Rate : 067 BPM Atrial Rate : 067 BPM P-R Int : 146 ms QRS Dur : 094 ms QT Int : 380 ms P-R-T Axes : 055 -59 047 degrees QTc Int : 401 ms Normal sinus rhythm Left axis deviation Abnormal ECG When compared with ECG of 01-OCT-2023 23:03, QT has shortened Referred By: Ophelia Elizabeth Electronically Signed By:Austin Isidro
[2023-10-13 06:04] VITALS: BP 135/97; PULSE 76; RESP 17; TEMP 36.6; O2SAT 98
--- NOTE | 2023-10-13 07:11 | PC.NURSE ---
Assumed care of patient at 0645, patient ambulating around room with steady gait, ate breakfast without issue, made his bed and is now resting comfortably. Offering no complaints to this RN. Patient aware of plan of care for inpt bedsearch
[2023-10-13 07:28] LABS: IDNOW Serial# 6674DD1D
[2023-10-13 07:29] LABS: COVID-19 Test Negative (Negative)
[2023-10-13] MEDS: Folic Acid 1 MG TABLET PO (09:11)
[2023-10-13] MEDS: Escitalopram Oxalate 10 MG TABLET PO (09:11)
[2023-10-13] MEDS: busPIRone HCl 10 MG TABLET PO ×2 (09:11→19:45)
[2023-10-13] MEDS: Thiamine HCL 100 MG TABLET PO (09:11)
[2023-10-13] MEDS: Multivitamin TABLET 1 TAB PO (09:12)
[2023-10-13 10:08] LABS: Appearance Urine Clear; Color Urine Dark Yellow; Glucose Urine UA Negative (Negative); Leukocyte Esterase Urine Trace (Negative); Nitrite Urine Negative (Negative); PH 6.5 (5.0-9.0); Specific Gravity - Urine >= 1.030 (1.005-1.025); UMIC TRIGGER UACC YES; Urine Blood Negative (Negative); Urine Ketones Trace mg/dL (Negative); Urine Protein Trace mg/dL (Neg-Trace)
[2023-10-13 10:10] LABS: Bacteria Urine None Seen (None Seen); Hyaline Casts Urine 0-2 /LPF (0-2); RBC Urine 0-2 /HPF (0-2); Squamous Epithelial Cell Urine 0-2 /HPF (0-2); WBC Urine 0-5 /HPF (0-5)
--- NOTE | 2023-10-13 14:13 | PC.NURSE ---
pt signed a 3day notice on 10/13/23, up on 10/16/23. SW, UR, and Provider aware.
[2023-10-13 14:40] VITALS: BP 133/81; PULSE 80; RESP 18; TEMP 36.6; O2SAT 99
[2023-10-13 14:41] VITALS: BMI 27.9
--- NOTE | 2023-10-13 14:43 | PC.ADMIT ---
Patient arrived to the unit at 1345 via wheelchair for treatment of self injurious behaviour. Patient had signed a 3 day CV prior to admission to the unit. Patient stated that he had a nervous breakdown, but I didn't have my medications until 2 days ago. Patient is A&Ox4, pleasant and cooperative. Patient reports he is no longer feeling out of control or that he wants to hurt himself or others. Patient reports difficulty falling and staying asleep, stating that only meds help with that. Patient reports occasionally using THC or cocaine recreationally. Unknown if patient ever received treatment for substance use/abuse. Patient denies any/all other complaints at this time. Patient has been placed on 15 minute checks for safety.
[2023-10-13] MEDS: hydrOXYzine HCL 25 MG TABLET PO (19:45)
[2023-10-13] MEDS: traZODone HCL 50 MG TABLET PO (19:45)
[2023-10-13] MEDS: HaloperidoL 1 MG TABLET 3 MG PO (19:45)
[2023-10-13 20:15] VITALS: BP 144/71; PULSE 73; RESP 16; TEMP 36.9; O2SAT 99
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
[2023-10-14 08:04] VITALS: BP 132/84; PULSE 63; RESP 16; TEMP 36.6; O2SAT 99
[2023-10-14] MEDS: Multivitamin TABLET 1 TAB PO (08:34)
[2023-10-14] MEDS: Thiamine HCL 100 MG TABLET PO (08:34)
[2023-10-14] MEDS: Escitalopram Oxalate 10 MG TABLET PO (08:34)
[2023-10-14] MEDS: Folic Acid 1 MG TABLET PO (08:35)
[2023-10-14] MEDS: busPIRone HCl 10 MG TABLET PO ×2 (08:35→20:52)
[2023-10-14 09:06] LABS: Alanine Aminotransferase 52 U/L (0-40); Albumin Level 4.2 g/dL (3.5-5.0); Alkaline Phosphatase 61 U/L (39-117); Anion Gap 8 (12-20); Aspartate Amino Transferase 26 U/L (5-37); Bilirubin Total 0.3 mg/dL (0.0-1.0); Blood Urea Nitrogen 11 mg/dL (9-16); Carbon Dioxide 31 mmol/L (22-29); Chloride 106 mmol/L (96-108); Creatinine Clr Calc Pharmacy 142.7; Estimated Glomerular Filt Rate > 60; Glucose Fasting 84 mg/dL (60-99); Potassium 4.3 mmol/L (3.3-5.1); Sodium 141 mmol/L (135-145); Total Protein 7.8 g/dL (6.5-8.0)
[2023-10-14] MEDS: hydrOXYzine HCL 25 MG TABLET PO ×2 (13:19→20:49)
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
[2023-10-14 20:45] VITALS: BP 139/86; PULSE 88; TEMP 36.2
[2023-10-14] MEDS: Acetaminophen 325 MG TABLET 650 MG PO (20:48)
[2023-10-14] MEDS: HaloperidoL 1 MG TABLET 3 MG PO (20:51)
[2023-10-14] MEDS: traZODone HCL 50 MG TABLET PO (20:52)
[2023-10-15 06:00] VITALS: BP 133/86; PULSE 73; RESP 16; TEMP 36.3; O2SAT 99
[2023-10-15] MEDS: hydrOXYzine HCL 25 MG TABLET PO ×3 (08:21→19:58)
[2023-10-15] MEDS: Folic Acid 1 MG TABLET PO (08:21)
[2023-10-15] MEDS: busPIRone HCl 10 MG TABLET PO ×2 (08:22→19:57)
[2023-10-15] MEDS: Multivitamin TABLET 1 TAB PO (08:22)
[2023-10-15] MEDS: Escitalopram Oxalate 10 MG TABLET PO (08:22)
[2023-10-15] MEDS: Thiamine HCL 100 MG TABLET PO (08:22)
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
[2023-10-15 18:30] VITALS: BP 140/83; PULSE 88; RESP 18; TEMP 36.7; O2SAT 98
[2023-10-15] MEDS: HaloperidoL 1 MG TABLET 3 MG PO (19:57)
[2023-10-15] MEDS: traZODone HCL 50 MG TABLET PO (19:58)
[2023-10-15] MEDS: cloNIDine HCL 0.1 MG TABLET PO (19:58)
[2023-10-16] MEDS: traZODone HCL 50 MG TABLET PO (01:00)
[2023-10-16 08:24] VITALS: BP 132/74; PULSE 79; RESP 16; TEMP 36.4; O2SAT 98
[2023-10-16] MEDS: Escitalopram Oxalate 10 MG TABLET PO (09:18)
[2023-10-16] MEDS: Thiamine HCL 100 MG TABLET PO (09:18)
[2023-10-16] MEDS: Multivitamin TABLET 1 TAB PO (09:18)
[2023-10-16] MEDS: Folic Acid 1 MG TABLET PO (09:18)
[2023-10-16] MEDS: hydrOXYzine HCL 25 MG TABLET PO (09:18)
[2023-10-16] MEDS: busPIRone HCl 10 MG TABLET PO (09:18)
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
== END 2023-10-16 11:35 | disposition home or self-care (01) | DRG 751 ==
LOC: HO.ED 20:34 → HO.PM5 10-13 12:41
PROVIDERS: Physician Assistant; Admitting Provider Psychiatry & Neurology Psychiatry; Emergency Provider Emergency Medicine Emergency Medical Services; PCP Physician Assistant; Visit Provider Clinical Nurse Specialist Psychiatric/Mental Health, Adult
DX: F33.9 Major depressive disorder, recurrent, unspecified (principal); Z91.141 Patient's other noncompliance with medication regimen due to financial hardship; F19.959 Other psychoactive substance use, unspecified with psychoactive substance-induced psychotic disorder, unspecified; I10 Essential (primary) hypertension; S61.011A Laceration without foreign body of right thumb without damage to nail, initial encounter; W25.XXXA Contact with sharp glass, initial encounter; Z20.822 Contact with and (suspected) exposure to COVID-19; Z23 Encounter for immunization; Z91.148 Patient's other noncompliance with medication regimen for other reason; Z87.891 Personal history of nicotine dependence; Z79.899 Other long term (current) drug therapy
CPT/HCPCS: 36415; 70150; 72040; 72072; 72100; 73030; 80053; 80143; 80179; 80307; 81001; 85025; 87635; 90686; 90715; 93005; 99285; S9485

== ENCOUNTER → 2023-10-13 09:12 | Outpatient (BNV) | payer MEDICAID, SELFPAY | PROVIDERS: Admitting Provider Psychiatry & Neurology Psychiatry; Emergency Provider Emergency Medicine Emergency Medical Services; PCP Physician Assistant; Visit Provider Internal Medicine Cardiovascular Disease | DX: I45.81 Long QT syndrome (principal) | CPT/HCPCS: 93010 ==

== ENCOUNTER → 2023-10-13 12:09 | Outpatient (BNV) | payer MEDICAID, OTHER, SELFPAY | PROVIDERS: Admitting Provider Psychiatry & Neurology Psychiatry; Emergency Provider Emergency Medicine Emergency Medical Services; PCP Physician Assistant; Visit Provider Clinical Nurse Specialist Psychiatric/Mental Health, Adult | DX: F19.959 Other psychoactive substance use, unspecified with psychoactive substance-induced psychotic disorder, unspecified (principal) | CPT/HCPCS: 90792; 99231; 99232 ==

== ENCOUNTER 2023-12-10 03:05 | Emergency (ER) | payer OTHER, SELFPAY ==
[2023-12-10 03:12] VITALS: BP 152/97; PULSE 102; RESP 18; TEMP 37.1; O2SAT 95; BMI 27.2
[2023-12-10 05:55] VITALS: BP 137/90; PULSE 80; RESP 17; O2SAT 98
--- NOTE | 2023-12-10 07:07 | ED.GENADULT ---
HPI - General Adult General Chief complaint: General Medical Stated complaint: Blood in semen Time Seen by Provider: 12/10/23 05:24 Source: patient Mode of arrival: ambulatory Limitations: no limitations History of Present Illness ED Provider: Dr. Niesha Garay HPI narrative: Patient comes to the emergency room complaining of seeing blood in the semen. Patient denies any hematuria or dysuria. Patient states that he has been having sex almost a day, unprotected with a new partner. Patient denies any penile discharge. Denies fever chills. Related Data Previous Rx's ?Medication ?Instructions ?Recorded buspirone 10 mg tablet 10 mg PO BID #60 tabs 10/07/23 clonidine HCl 0.1 mg tablet 0.1 mg PO BID PRN anxiety #30 tabs 10/07/23 escitalopram oxalate 10 mg tablet 10 mg PO DAILY #30 tabs 10/07/23 (Lexapro) folic acid 1 mg tablet 1 mg PO DAILY #30 tabs 10/07/23 haloperidol 1 mg tablet 3 mg (3 x 1 mg) PO BEDTIME #90 tabs 10/07/23 multivitamin (Daily-Jonathan tablet) 1 tab PO DAILY #30 tabs 10/07/23 thiamine mononitrate (vit B1) 100 100 mg PO DAILY #3 tabs 10/07/23 mg tablet doxycycline hyclate 100 mg capsule 100 mg PO BID #14 caps 12/10/23 Allergies Allergy/AdvReac Type Severity Reaction Status Date / Time No Known Allergies Allergy Verified 12/10/23 03:15 [No Known Allergies*] Review of Systems Review of Systems: Constitutional : No Weight loss, No Fever, No Chills, No Night Sweats, No Fatigue, No Malaise ENT/Mouth : No Hearing loss, No Ear Pain, No Nasal Congestion, No Sinus Pain, No Hoarseness, No sore throat, No Rhinorrhea, No Swallowing Difficulty Eyes: No Eye Pain, No Swelling, No Redness, No Foreign Body, No Discharge, No Vision Changes Cardiovascular : No Chest Pain, No SOB, No Dyspnea on Exertion, No Orthopnea, No Edema, No Palpitations Respiratory : No Cough, No Sputum, No Wheezing, No Smoke Exposure, No Dyspnea Gastrointestinal : No Nausea, No Vomiting, No Diarrhea, No Constipation, No abdominal Pain, No Hematochezia, No Melena Genitourinary : no irregular bleeding, No Dysuria, No Urinary Frequency, No Hematuria, No Urinary Incontinence, No Urgency, No Flank Pain, No Urinary Flow Changes, No Hesitancy, complaining of seeing blood in the semen Musculoskeletal : No joint pain, No Myalgias, No Joint Swelling Skin : No Skin Lesions, No rash Neuro : No Weakness, No Numbness, No Paresthesias, No Loss of Consciousness, No Dizziness, No Headache Psych : No Anxiety/Panic, No Depression, No SI/HI/AH/VH, No Social Issues, Heme/Lymph: No Bruising, No Bleeding,No Lymphadenopathy Endocrine : No Polyuria, No Polydipsia, No Temperature Intolerance [facility] Past Medical History Medical History Major depression Substance-induced psychotic disorder Psychiatric diagnosis Anxiety HTN (hypertension) Sore throat (viral) Surgical History H/O hernia repair Family History Family History Mother HTN (hypertension) Social History Social History Household Members: None Housing: Apartment Do you presently have visiting nurse or other home services: No Unable to assess alcohol history related to: Refusing to respond Alcohol intake: current Alcohol intake frequency: holidays/special occasions only Alcohol type: wine Patient Tobacco Use Status: Former Tobacco user Smoked in Last 30 Days: No e-Cigarette/Vaping Use: Never Used Second Hand Smoke Exposure: No Use of substances other than those prescribed or required for medical reasons: No Substance Use Type: Crack/Cocaine and Marijuana Advance Directives: No Advance Directives Information Provided: Yes service: No Current occupational status: employed 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 Oriented X3. No acute distress. Eyes: Pupils equal, round and reactive to light. ENT: Pharynx normal. Neck: Normal inspection. Neck supple. No lymph nodes noted. No crepitus CVS: Normal heart rate and rhythm. Pulses normal. Normal S1 and S2 Respiratory: No respiratory distress. Breath sounds normal. No Wheezing. No rales Abdomen: Soft and nontender. No rigidity. No distention. : Declined Skin: Skin warm and dry. Normal skin color. Normal skin turgor. Extremities: No lower extremity edema. No Lacerations. No Rash Neuro: Oriented X 3. No motor deficit. No sensory deficit. Moving all extremities. No slurred speech. CN 2 through 12 grossly intact Psych: calm, cooperative, normal affect Medical Decision Making Medical Decision Making MDM Narrative: -discussed various reasons why patient may have blood in the semen. Patient agreeable to get tested for STDs. -patient states that he would like to be empirically treated. -patient given IM ceftriaxone and p.o. doxycycline Differential Diagnosis Differential Diagnoses: The differential diagnosis associated with the presentation includes (Benign hematospermia, UTI, epididymitis, vascular malformation) Discharge Plan Discharge Clinical Impression: Hematospermia Patient Disposition: Home, Self-Care Instructions: Safe Sex Practices (ED) Additional Instructions: Please follow-up with your primary care physician tomorrow. If you have any worsening or new symptoms, please return to the emergency room or call 911 Prescriptions: New doxycycline hyclate 100 mg capsule 100 mg PO BID Qty: 14 0RF No Action multivitamin [Daily-Jonathan] Tablet 1 tab PO DAILY Qty: 30 0RF clonidine HCl 0.1 mg Tablet 0.1 mg PO BID PRN (Reason: anxiety) Qty: 30 0RF Protocol: Hold for SBP< HOLD for SBP < : 90 haloperidol 1 mg Tablet 3 mg PO BEDTIME Qty: 90 0RF folic acid 1 mg Tablet 1 mg PO DAILY Qty: 30 0RF thiamine mononitrate (vit B1) 100 mg Tablet 100 mg PO DAILY Qty: 3 0RF buspirone 10 mg Tablet 10 mg PO BID Qty: 60 0RF escitalopram oxalate [Lexapro] 10 mg Tablet 10 mg PO DAILY Qty: 30 0RF Print Language: Cameroonian
[2023-12-10 08:07] VITALS: BP 137/93; PULSE 62; RESP 16; TEMP 36.8; O2SAT 100
[2023-12-10] MEDS: cefTRIAXone sodium 1 GM, Lidocaine HCl 1 % MPF 2.1 ML IM (08:13)
[2023-12-10] MEDS: Doxycycline Monohydrate 100 MG CAPSULE PO (08:13)
--- NOTE | 2023-12-10 08:20 | PC.NURSE ---
urine obtained/sent to lab by tech. delay in medication administration d/t emergent situation w/ other pt. pt waiting to obtain UA then d/c.
[2023-12-10 08:48] VITALS: BP 137/93; PULSE 62; RESP 16; TEMP 36.8; O2SAT 100
[2023-12-10 08:52] LABS: Appearance Urine Clear; Color Urine Yellow; Glucose Urine UA Negative (Negative); Leukocyte Esterase Urine Negative (Negative); Nitrite Urine Negative (Negative); PH 5.5 (5.0-9.0); Specific Gravity - Urine >= 1.030 (1.005-1.025); UMIC TRIGGER UACC YES; Urine Blood Trace (Negative); Urine Ketones 15 mg/dL (Negative); Urine Protein Negative (Neg-Trace)
[2023-12-10 08:54] LABS: Bacteria Urine None Seen (None Seen); Hyaline Casts Urine 0-2 /LPF (0-2); RBC Urine 0-2 /HPF (0-2); Squamous Epithelial Cell Urine 0-2 /HPF (0-2); WBC Urine 0-5 /HPF (0-5)
[2023-12-10 09:41] LABS: CT PCR NOT DETECTED (Not Detect.); NG PCR NOT DETECTED (Not Detect.)
== END 2023-12-10 08:49 | disposition home or self-care (01) ==
PROVIDERS: Emergency Provider Emergency Medicine; PCP Physician Assistant
DX: R36.1 Hematospermia (principal); Z20.2 Contact with and (suspected) exposure to infections with a predominantly sexual mode of transmission
CPT/HCPCS: 0353U; 81001; 96372; 99284; J0696

== ENCOUNTER 2024-04-18 23:49 | Inpatient (IN) | payer OTHER, SELFPAY ==
--- NOTE | 2024-04-18 | ECG_ITS ---
Test Reason : COCAINE USE Blood Pressure : / mmHG Vent. Rate : 066 BPM Atrial Rate : 066 BPM P-R Int : 144 ms QRS Dur : 096 ms QT Int : 392 ms P-R-T Axes : 070 -71 050 degrees QTc Int : 410 ms Normal sinus rhythm Left axis deviation When compared with ECG of 13-OCT-2023 09:12, No significant change was found Referred By: Generic ED Physician Electronically Signed By:CHRYSTAL AYOUB
[2024-04-18 23:51] VITALS: BP 140/92; PULSE 76; RESP 18; TEMP 36.3; O2SAT 100; BMI 24.0
[2024-04-19] VITALS (7 sets, daily range): BP systolic 129–145; BP diastolic 73–93; PULSE 56–68; RESP 16–20; TEMP 36.4–36.8; O2SAT 98–100
[2024-04-19 00:24] LABS: Basophils Absolute Auto 0.1 X10*3/uL (0.0-0.2); Eosinophils Absolute Auto 0.1 X10*3/uL (0.0-0.4); Hematocrit 45.2 % (42.0-52.0); Hemoglobin 15.2 g/dl (14.0-18.0); Imm Gran Abs Auto 0.01 X10*3/uL (0.00-0.03); Imm Gran Pct Auto 0.2 % (0.0-0.4); Lymphocytes Absolute Auto 3.1 X10*3/uL (1.2-4.9); Lymphocytes Percent Auto 52.8 % (20-40); MANUAL DIFF FLAG NO; Mean Corpuscular HGB Conc 33.6 g/dl (31.0-36.0); Mean Corpuscular Hemoglobin 27.9 pg (27.0-33.0); Mean Corpuscular Volume 83.1 fL (80.0-98.0); Mean Platelet Volume 11.2 fL (9.4-12.4); Monocytes Absolute Auto 0.4 X10*3/uL (0.1-1.2); Monocytes Percent Auto 5.9 % (2-11); Neutrophils Absolute Auto 2.3 x10*3/uL (2.0-8.3); Neutrophils Percent Auto 39.1 % (45-73); Platelet Count 255 X10*3/uL (160-400); Red Blood Count 5.44 X10*6/uL (4.60-5.80); Red Cell Distribution Width 14.9 % (11.0-16.0); White Blood Count 5.9 X10*3/uL (4.8-10.8)
[2024-04-19 00:40] LABS: Alanine Aminotransferase 39 U/L (0-40); Albumin Level 4.3 g/dL (3.5-5.0); Alkaline Phosphatase 64 U/L (39-117); Anion Gap 12 (12-20); Aspartate Amino Transferase 26 U/L (5-37); Bilirubin Total 0.3 mg/dL (0.0-1.0); Blood Urea Nitrogen 9 mg/dL (9-16); Calcium 9.9 mg/dL (8.4-10.2); Carbon Dioxide 27 mmol/L (22-29); Chloride 105 mmol/L (96-108); Creatinine Clr Calc Pharmacy 120.9; Estimated Glomerular Filt Rate > 60; Ethanol < 10 mg/dL; Glucose Random 106 mg/dL (60-115); Potassium 3.8 mmol/L (3.3-5.1); Sodium 140 mmol/L (135-145)
--- NOTE | 2024-04-19 02:31 | PC.NURSE ---
Addendum entered by Edie Albarran RN 04/19/24 02:46: Belongings placed in C2 Original Note: Patient denies SI/HI at this time but does endorse auditory and visual hallucinations. Belongings placed in locker 2. 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
--- OUTSIDE RECORDS SUMMARY | 2024-04-19 03:26 | XMS_ITS | Continuity of Care Document ---
Author Organization [facility] ter Address [address] [place] [id number]- Care Team Providers Care Stand In Name Role Phone Mike Butts Primary Care Physician Encounter [facility] Date(s): 12/12/23 - 12/14/[address] [id number]- Discharge Disposition: Transfer to [facility] Attending Physician: Olivier Navas DO Admitting Physician: Olivier Navas DO Referring Physician: Not on Staff, Referring MD Allergies, Adverse Reactions, Alerts No Known Medication Allergies Vital Signs Most recent to oldest [Reference Range]: 1 2 3 Oxygen Saturation [94-100 %] 99 % (12/14/23 8:36 AM) 100 % (12/13/23 8:30 PM) 96 % (12/13/23 7:33 AM) Pulse Rate [55-90 bpm] 80 bpm (12/14/23 8:36 AM) 68 bpm (12/13/23 8:30 PM) 70 bpm (12/13/23 7:33 AM) Blood Pressure [90-138/55-84 mm Hg] 112/75mm Hg (12/14/23 8:36 AM) 126/76mm Hg (12/13/23 8:30 PM) 117/75mm Hg (12/13/23 7:33 AM) Respiratory Rate [16-30 br/min] 18 br/min (12/14/23 8:36 AM) 18 br/min (12/13/23 8:30 PM) 16 br/min (12/13/23 7:33 AM) Temperature [96.8-100.4 DegF] 98 DegF (12/14/23 8:36 AM) 97.9 DegF (12/13/23 8:30 PM) 98.3 DegF (12/13/23 7:33 AM) Mode of Delivery (Oxygen) Room air (12/14/23 8:36 AM) Room air (12/13/23 8:30 PM) Room air (12/13/23 7:33 AM) Blood pressure sites Arm, right (12/14/23 8:36 AM) Arm, right (12/13/23 7:33 AM) Arm, right (12/12/23 11:17 PM) Temperature Route Oral (12/14/23 8:36 AM) Oral (12/13/23 8:30 PM) Oral (12/13/23 7:33 AM) Hospital Progress note * Event Display: Progress Note Hospital Authored Date: Patient Care team information Care Team Personnel Name: Mike Butts Position: Reference Physician Member Role: PCP Address: Address: [address] [place], [place] [address]
--- NOTE | 2024-04-19 06:26 | ED_ITS ---
HPI - Psych General Chief Complaint: Psychiatric Symptoms Stated Complaint: drug addiction, schizophrenia Time Seen by Provider: 04/19/24 03:58 Source: patient Mode of arrival: ambulatory Limitations: no limitations History of Present Illness ED Provider: chelsea MCNEIL Narrative: Patient's history of schizophrenia and cocaine abuse not taking his Haldol for last 1 month as he is using cocaine hallucinating auditory and visual same as in the past asking for help to stop cocaine use and to start on this medication denied any SI or HI patient has a problem in housing also unable to go back to his condominium Related Data Previous Rx's ?Medication ?Instructions ?Recorded buspirone 10 mg tablet 10 mg PO BID #60 tabs 10/07/23 clonidine HCl 0.1 mg tablet 0.1 mg PO BID PRN anxiety #30 tabs 10/07/23 escitalopram oxalate 10 mg tablet 10 mg PO DAILY #30 tabs 10/07/23 (Lexapro) folic acid 1 mg tablet 1 mg PO DAILY #30 tabs 10/07/23 haloperidol 1 mg tablet 3 mg (3 x 1 mg) PO BEDTIME #90 tabs 10/07/23 multivitamin (Daily-Jonathan tablet) 1 tab PO DAILY #30 tabs 10/07/23 thiamine mononitrate (vit B1) 100 100 mg PO DAILY #3 tabs 10/07/23 mg tablet doxycycline hyclate 100 mg capsule 100 mg PO BID #14 caps 12/10/23 Allergies Allergy/AdvReac Type Severity Reaction Status Date / Time No Known Allergies Allergy Verified 04/18/24 23:53 [No Known Allergies*] Review of Systems 2 Review of Systems: Yes all other systems are reviewed and are negative PMFSH Past Medical History Medical History Major depression Substance-induced psychotic disorder Psychiatric diagnosis Anxiety HTN (hypertension) Sore throat (viral) Surgical History H/O hernia repair Family History Family History Mother HTN (hypertension) Social History Social History Household Members: None Housing: Apartment Do you presently have visiting nurse or other home services: No Unable to assess alcohol history related to: Refusing to respond Alcohol intake: current Alcohol intake frequency: holidays/special occasions only Alcohol type: wine Patient Tobacco Use Status: Former Tobacco user Smoked in Last 30 Days: No e-Cigarette/Vaping Use: Never Used Second Hand Smoke Exposure: No Substance Use Type: Crack/Cocaine Substance Use Frequency: Chronic Longstanding Last Used Substance: Hours (ago) Any prior treatment program specific to substance use: No Advance Directives: No Advance Directives Information Provided: Yes Do you have a plan to hurt others: No Plan service: No Current occupational status: employed 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 Oriented X3. No acute distress. Eyes: PERRLA, No Nystagmus ENT: Pharynx normal. Oral Mucosa moist Neck: Normal inspection. Neck supple. CVS: Normal heart rate and rhythm. Pulses normal. Respiratory: No respiratory distress. Equal air entry bilateral, no wheezing/rales/rhonchi Abdomen: Soft and nontender. Bowel sounds are present, no mass palpable, no CVA tenderness Skin: Skin warm and dry. Normal skin color. Normal skin turgor. Extremities: No lower extremity edema. No calf tenderness Neuro: Oriented X 3. No motor deficit. No sensory deficit.No cerebellar signs , cranial nerves II-XII intact Medical Decision Making Medical Decision Making MDM Narrative: Patient's schizophrenia and substance abuse looking for help in medications and to stop cocaine use will get care team involved Lab Data MDM Lab Attestation statement: I reviewed the patient's lab results. 04/19/24 00:19 04/19/24 00:19 Labs: Lab Results 04/19/24 Range/Units 00:19 WBC 5.9 (4.8-10.8) X10*3/uL RBC 5.44 (4.60-5.80) X10*6/uL Hgb 15.2 (14.0-18.0) g/dl Hct 45.2 (42.0-52.0) % MCV 83.1 (80.0-98.0) fL MCH 27.9 (27.0-33.0) pg MCHC 33.6 (31.0-36.0) g/dl RDW 14.9 (11.0-16.0) % Plt Count 255 (160-400) X10*3/uL MPV 11.2 (9.4-12.4) fL Immature Gran % (Auto) 0.2 (0.0-0.4) % Neut % (Auto) 39.1 L (45-73) % Lymph % (Auto) 52.8 H (20-40) % [place] % (Auto) 5.9 (2-11) % Eos % (Auto) 1.0 (0-4) % Baso % (Auto) 1.0 (0-2) % Lymph # (Auto) 3.1 (1.2-4.9) X10*3/uL [place] # (Auto) 0.4 (0.1-1.2) X10*3/uL Eos # (Auto) 0.1 (0.0-0.4) X10*3/uL Baso # (Auto) 0.1 (0.0-0.2) X10*3/uL Abs Immat Gran (auto) 0.01 (0.00-0.03) X10*3/uL Absolute Neuts (auto) 2.3 (2.0-8.3) x10*3/uL Absolute Nucleated RBC 0.000 (0.0-0.012) X10*3/uL Nucleated RBC % (auto) 0.0 (0.0-0.2) /100WBC Sodium 140 (135-145) mmol/L Potassium 3.8 (3.3-5.1) mmol/L Chloride 105 (96-108) mmol/L Carbon Dioxide 27 (22-29) mmol/L Anion Gap 12 (12-20) BUN 9 (9-16) mg/dL Creatinine 0.88 (0.5-1.4) mg/dL Estim Creat Clear Calc 120.9 Estimated GFR > 60 Random Glucose 106 (60-115) mg/dL Calcium 9.9 (8.4-10.2) mg/dL Total Bilirubin 0.3 (0.0-1.0) mg/dL AST 26 (5-37) U/L ALT 39 (0-40) U/L Alkaline Phosphatase 64 (39-117) U/L Total Protein 8.0 (6.5-8.0) g/dL Albumin 4.3 (3.5-5.0) g/dL Ethyl Alcohol < 10 mg/dL Discharge Plan Discharge Clinical Impression: Chronic schizophrenia, Cocaine abuse Patient Disposition: Still a Patient Prescriptions: No Action doxycycline hyclate 100 mg capsule 100 mg PO BID Qty: 14 0RF multivitamin [Daily-Jonathan] Tablet 1 tab PO DAILY Qty: 30 0RF clonidine HCl 0.1 mg Tablet 0.1 mg PO BID PRN (Reason: anxiety) Qty: 30 0RF Protocol: Hold for SBP< HOLD for SBP < : 90 haloperidol 1 mg Tablet 3 mg PO BEDTIME Qty: 90 0RF folic acid 1 mg Tablet 1 mg PO DAILY Qty: 30 0RF thiamine mononitrate (vit B1) 100 mg Tablet 100 mg PO DAILY Qty: 3 0RF buspirone 10 mg Tablet 10 mg PO BID Qty: 60 0RF escitalopram oxalate [Lexapro] 10 mg Tablet 10 mg PO DAILY Qty: 30 0RF Interventions: [place]-Suicide Risk Severity Scale Last Done: 04/19/24 02:23 Print Language: Chilean
--- NOTE | 2024-04-19 07:00 | PC.NURSE ---
Report taken from Elle Valdovinos RN
[2024-04-19 07:07] LABS: Amphetamine Screen Urine Not Detected (Not Detect); Barbiturates, Urine Not Detected (Not Detect); Benzodiazepines Screen Urine Not Detected (Not Detect); Buprenorphine Scr Not Detected (Not Detect); Cannabinoid Screen Urine Not Detected (Not Detect); Cocaine Screen Urine POSITIVE (Not Detect); Fentanyl, urine Not Detected (Not Detect); Methadone Screen, Urine Not Detected (Not Detect); Opiate Screen Urine Not Detected (Not Detect); Oxycodone Screen Urine Not Detected (Not Detect); Phencyclidine Screen Urine Not Detected (Not Detect)
--- NOTE | 2024-04-19 19:29 | PC.NURSE ---
Pt assumed pt care @ 1900. Pt resting in comfortably, no signs of distress. Sitter remains Plan of care ongoing.
--- NOTE | 2024-04-19 20:40 | PC.NURSE ---
Pt requested and given food and drink Plan of care ongoing.
[2024-04-20 10:24] VITALS: BP 125/73; PULSE 68; RESP 16; TEMP 36.4; O2SAT 100
--- NOTE | 2024-04-20 11:19 | PC.NURSE ---
Assumed care of this patient at 1100, patient resting quietly on stretcher at this time sitter at bedside for patient safety.
--- NOTE | 2024-04-20 13:22 | PHA.MEDREC ---
Addendum entered by Hayder Thomas 04/20/24 13:32: reviewed Original Note: Pharmacy Consult ? Medication Reconciliation Pharmacy has completed the medication reconciliation. Spoke to patient to confirm med list. Patient states he taking Buspirone 10 mg, however last fill date was 12/26/23 for 30 days, Clonidine 0.1 mg , however last fill dates was 12/26/23, Lexapro 20 mg , however last fill date was 10/07/23 for 30 days, Folic acid, however last fill dates was 10/07/23 for 30 days, Haloperidol 10 mg , however last fill date was 12/26/23 for 30 days. when ask when the last time he took his medication he said it's been weeks.
--- NOTE | 2024-04-20 13:24 | PC.NURSE ---
Patient changed over into attire, cell phone and rolled seat trimmer placed w/ belongings locked in C2.
[2024-04-20 16:11] VITALS: BP 126/85; PULSE 84; RESP 18; TEMP 37; O2SAT 98
[2024-04-20 16:15] LABS: Appearance Urine Clear; Color Urine Yellow; Glucose Urine UA Negative (Negative); Leukocyte Esterase Urine Negative (Negative); Nitrite Urine Negative (Negative); Specific Gravity - Urine 1.015 (1.005-1.025); Urine Blood Negative (Negative); Urine Ketones Negative (Negative); Urine Protein Negative (Neg-Trace)
[2024-04-20 16:20] LABS: Bacteria Urine None Seen (None Seen); Hyaline Casts Urine 0-2 /LPF (0-2); RBC Urine 0-2 /HPF (0-2); Squamous Epithelial Cell Urine 0-2 /HPF (0-2); WBC Urine 0-5 /HPF (0-5)
--- NOTE | 2024-04-20 19:59 | MHC.EDTECH ---
belongings in C2
[2024-04-20 21:01] VITALS: BP 126/78; PULSE 82; RESP 20; TEMP 36.9; O2SAT 98
[2024-04-21 06:00] VITALS: BP 127/78; PULSE 72; RESP 12; TEMP 37.1; O2SAT 100
[2024-04-21] MEDS: Baclofen 10 MG TABLET PO ×2 (10:15→21:02)
[2024-04-21] MEDS: Multivitamin TABLET 1 TAB PO (10:16)
[2024-04-21] MEDS: Escitalopram Oxalate 20 MG TABLET PO (10:16)
[2024-04-21] MEDS: Thiamine HCL 100 MG TABLET PO (10:16)
[2024-04-21] MEDS: Folic Acid 1 MG TABLET PO (10:16)
[2024-04-21] MEDS: busPIRone HCl 10 MG TABLET PO ×2 (10:16→21:02)
[2024-04-21 13:30] VITALS: BP 138/88; PULSE 92; TEMP 2.4; TEMP 36.4; O2SAT 99; BMI 25.2
[2024-04-21] MEDS: Flu Vacc TS2024-25(6mos up)/PF 0.5 ML SYRINGE IM (15:33)
--- NOTE | 2024-04-21 16:34 | PC.ADMIT ---
Mr. Jayjay Liu, who goes by Jayjay, was admitted from the POD to Room 512-2 at 1:02pm for depression, psychosis and cocaine use disorder. He was cooperative with the skin/ safety check which was unremarkable. He has signed a Conditional Voluntary. Belongings were inventoried and put in storage, however he has not yet had access to his phone to retrieve needed phone numbers. No known drug allergies. Flu vaccine administered. He is an occasional cigarette smoker and a cessation consult was put in for him. Mr. Liu who looks his stated age (33yrs.) was calm and cooperative throughout the admission process. He reports that he has been off his medications for 2+ weeks and has been using excessive amounts of crack cocaine daily, last use prior to arrival at the ER on 04/18/24. Mr. Liu currently endorses passive suicidal ideation, auditory and visual hallucinations and depressive symptoms. History of 1 suicide attempt 5 months ago and has had several psych inpatient admissions since then. He denies other substance use. Toxicology screen positive for cocaine only. He reports that he intends to relocate to [place] to live with his mother after discharge and that she will be coming to [place] to get him to bring him home with her. He reports he is safe on the unit and has no plan or intent to harm himself in any way at this time, and can report to nursing if that should change.
[2024-04-21 20:00] VITALS: BP 152/87; PULSE 82; RESP 15; TEMP 36.6; O2SAT 98
[2024-04-21] MEDS: HaloperidoL 5 MG TABLET 10 MG PO (21:02)
[2024-04-21] MEDS: traZODone HCL 50 MG TABLET PO (21:02)
[2024-04-22 08:25] VITALS: BP 163/94; PULSE 62; RESP 18; TEMP 36.4; O2SAT 100
[2024-04-22] MEDS: Multivitamin TABLET 1 TAB PO (08:36)
[2024-04-22] MEDS: Folic Acid 1 MG TABLET PO (08:36)
[2024-04-22] MEDS: busPIRone HCl 10 MG TABLET PO ×2 (08:36→21:24)
[2024-04-22] MEDS: Escitalopram Oxalate 20 MG TABLET PO (08:36)
[2024-04-22] MEDS: Baclofen 10 MG TABLET PO ×2 (08:36→21:24)
[2024-04-22] MEDS: Thiamine HCL 100 MG TABLET PO (08:37)
--- NOTE | 2024-04-22 08:39 | HO.PSYADMNOT ---
HPI Date of Service: 04/22/24 Chief Complaint: Cocaine use disorder, depression with psychosis Sources of Information: patient interviewed, chart reviewed and crisis/core team assessment reviewed HPI Subjective Notes: Day Warning, Conditional Voluntary and 3 Day Narrative: pt seen on 04/21 and again on 04/22 around 11:40am Patient is a 33-year-old male with history of schizophrenia/schizoaffective disorder, PTSD, crack cocaine use disorder, who presents for worsening depression, psychosis in the face of relapse and going off psychiatric medications. Patient reports that when he discharged from [facility] this past October, he was feeling better, no AVH and continue taking his meds for few months and remain sober. He eventually relapsed and then stopped taking medications. Since then he was psychiatrically admitted to [facility] this past spring and then [facility] this past . Since then he has been taking his medications on and off but continued to struggle with cocaine addiction, using daily and patient's depression anxiety significantly increased along with auditory hallucinations of voices mumbling and VH of seeing shadows. Over the past couple weeks he lost his housing and has been homeless, staying at a friend's house but can not go back. Patient said he came to the hospital because of his significant depression and psychotic symptoms and wants to stop using. Denies other substance abuse; denies manic episodes separate from substance use; ongoing flashbacks to traumatic memories Past Psychiatric History: IP: [facility] discharged 09/26/23-polysubstance use, [facility] 10/2023 OP: Denies Hx of suicide attempt one month ago-wrapped a lamp cord around his neck Hx of suicide attempt age 5 when he drank bleach Hx of auditory of visual perceptual alteration in childhood- stopped around age 11, restarted when he began using crack-cocaine . Medical Evaluation Reviewed: Yes [facility] Medical History (Updated 04/22/24 @ 13:30 by Luan Ribeiro MD) Homeless Cocaine use disorder Schizoaffective disorder, depressive type PTSD (post-traumatic stress disorder) Major depression Substance-induced psychotic disorder Psychiatric diagnosis Anxiety HTN (hypertension) Sore throat (viral) Surgical History H/O hernia repair Family History: Brother suicided Mother-bipolar, multiple personality disorder Maternal relatives with addiction Family history of trauma Social History: Born in [place] 3 brothers, 2 sisters Attended high school in [place]. Attended [employer] and [employer] Denies legal issues Enjoys music Substance History: Crack cocaine use disorder; has been using daily and on off for years Trauma History: Affirms Diagnostics Vital Signs (24Hr): Vital Signs - 24 hr 04/21/24 13:30 04/21/24 20:00 04/22/24 08:25 Temperature 36.4 F L 97.8 F 97.5 F Pulse Rate 92 82 62 Respiratory Rate 15 18 Blood Pressure 138/88 152/87 H 163/94 H Pulse Oximetry 99 98 100 Oxygen Delivery Method Room Air Room Air BMI result Body Mass Index 25.2 Labs 04/19/24 00:19 04/19/24 00:19 Labs: Laboratory Results - last 48 hr 04/20/24 15:57 Urine Color Yellow Urine Appearance Clear Urine pH 7.0 Ur Specific [place] 1.015 Urine Protein Negative Urine Glucose (UA) Negative Urine Ketones Negative Urine Blood Negative Urine Nitrite Negative Ur Leukocyte Esterase Negative Urine RBC 0-2 Urine WBC 0-5 Ur Squamous Epith Cells 0-2 Urine Bacteria None Seen Hyaline Casts 0-2 Meds/Allergies Meds Home Medications ?Medication ?Instructions ?Recorded ?Confirmed ?Type baclofen 10 mg tablet 10 mg PO BID 04/20/24 04/20/24 History escitalopram oxalate 20 mg tablet 20 mg PO DAILY 04/20/24 04/20/24 History haloperidol 10 mg tablet 10 mg PO BEDTIME 04/20/24 04/20/24 History trazodone 50 mg tablet 50 mg PO BEDTIME 04/20/24 04/20/24 History Allergies Allergies Allergy/AdvReac Type Severity Reaction Status Date / Time No Known Allergies Allergy Verified 04/18/24 23:53 [No Known Allergies*] Mental Status Exam Mental Status Exam Narrative: Pt is alert and oriented; behavior is cooperative and calm, quiet, keeping to himself; patient is not in distress; dressed in hospital attire, head scarf, disheveled; mood is described as press and affect congruent, downcast; eye contact avoidant; Speech is slow and soft; normal prosody, not pressured; psychomotor agitation present; thought process is goal directed, concrete; Thought content is on dealing with AH, depression; on tx; otherwise pertinent to relevant topics no overt paranoid delusional thoughts expressed; denies any SI/HI. AVH Patients insight and judgment impaired Assessment & Plan Assessment & Plan (1) PTSD (post-traumatic stress disorder): Status: Acute Code(s): F43.10 - Post-traumatic stress disorder, unspecified (2) Schizoaffective disorder, depressive type: Status: Acute Code(s): F25.1 - Schizoaffective disorder, depressive type (3) Cocaine use disorder: Status: Acute Code(s): F14.10 - Cocaine abuse, uncomplicated (4) Homeless: Status: Acute Code(s): Z59.00 - Homelessness unspecified (5) HTN (hypertension): Status: Acute Qualifiers: Hypertension type: primary hypertension Qualified Code(s): I10 - Essential (primary) hypertension Code(s): I10 - Essential (primary) hypertension Plan Patient is a 33-year-old male with history of schizophrenia/schizoaffective disorder, PTSD, crack cocaine use disorder, who presents for worsening depression, psychosis in the face of relapse and going off psychiatric medications. Patient reports that when he discharged from [facility] this past October, he was feeling better, no AVH and continue taking his meds for few months and remain sober. He eventually relapsed and then stopped taking medications. Since then he was psychiatrically admitted to [facility] this past spring and then [facility] this past February/March. Since then he has been taking his medications on and off but continued to struggle with cocaine addiction, using daily and patient's depression anxiety significantly increased along with auditory hallucinations of voices mumbling and VH of seeing shadows. Over the past couple weeks he lost his housing and has been homeless, staying at a friend's house but can not go back. Patient said he came to the hospital because of his significant depression and psychotic symptoms and wants to stop using. Denies other substance abuse; denies manic episodes separate from substance use; ongoing flashbacks to traumatic memories Clinical reason/formulation Patient has psychotic illness exacerbated by crack cocaine use and PTSD. He was recently at [facility] and was continued on the same meds however at higher Haldol dose. Patient wants to restart with this med regimen now. Patient currently homeless. Says that his mother may let him live with her in [place] -patient hypertensive; will discuss medication management for this Plan: CV Q 15 minute checks Restart following: Haldol 10 mg q.h.s. BuSpar 10 mg b.i.d. Lexapro 20 mg daily Clonidine p.r.n. Patient educated on: diagnosis, medication risk/benefits, substance abuse and therapeutic strategies Informed Consent: understands Reason for continued inpatient stay Substantial Risk for: rapid decompensation Statement Statement: I have reviewed the history and physical and performed a pertinent examination on my patient. No changes have occurred unless specified. If the History and Physical was not performed prior to admission, the Hospitalist's service will be consulted for completing the admission physical. Time Spent With Patient Time: Total time managing care of this patient today ____ minutes.
[2024-04-22 20:00] VITALS: BP 150/84; PULSE 88; TEMP 36.6; O2SAT 98
[2024-04-22] MEDS: HaloperidoL 5 MG TABLET 10 MG PO (21:24)
[2024-04-22] MEDS: traZODone HCL 50 MG TABLET PO (21:24)
[2024-04-23 08:00] VITALS: BP 128/72; PULSE 76; RESP 16; TEMP 36.4; O2SAT 96
[2024-04-23] MEDS: busPIRone HCl 10 MG TABLET PO ×2 (09:06→21:04)
[2024-04-23] MEDS: Folic Acid 1 MG TABLET PO (09:06)
[2024-04-23] MEDS: Multivitamin TABLET 1 TAB PO (09:06)
[2024-04-23] MEDS: Escitalopram Oxalate 20 MG TABLET PO (09:06)
[2024-04-23] MEDS: Thiamine HCL 100 MG TABLET PO (09:06)
[2024-04-23] MEDS: Baclofen 10 MG TABLET PO ×2 (09:06→21:04)
--- NOTE | 2024-04-23 10:35 | P.PNPSI_ITS ---
Subjective Subjective Date of Service: 04/23/24 Reason For Visit: Cocaine use disorder, depression with psychosis Interim History: Met with patient; discussed with team remains calm; mostly keeping to himself. Pt says that he is feeling better, mood is better and on AVH. Eating and sleeping well. Pt remains ambivalent about going to aftercare program, waiting to discuss plans with his mother. Says he will talk w/ her today Mental Status Exam Mental Status Exam Narrative: Pt is alert and oriented; behavior is cooperative and calm, quiet, keeping to himself; patient is not in distress; dressed in hospital attire, head scarf, unkempt; mood is described as better and affect congruent, brighter; eye contact improved; Speech is normal volume, rate, prosody, not pressured; still psychomotor agitation present; thought process is goal directed, concrete; Thought content is aftercare plans; on tx; otherwise pertinent to relevant topics no overt paranoid delusional thoughts expressed; denies any SI/HI. Denies AVH Patients insight and judgment improved, at baseline and adequate Diagnostics Vital Signs (24Hr): Vital Signs - 24 hr 04/22/24 20:00 04/23/24 08:00 Temperature 97.8 F 97.5 F Pulse Rate 88 76 Respiratory Rate 16 Blood Pressure 150/84 H 128/72 Pulse Oximetry 98 96 Oxygen Delivery Method Room Air Room Air BMI result Body Mass Index 25.2 Labs 04/19/24 00:19 04/19/24 00:19 Medications Medications Current Medications Acetaminophen (Acetaminophen 325 Mg Tablet) 650 mg PO Q6H PRN PRN Reason: Headache/Pain Mild Scale (1-3) Al Hydroxide/Mg Hydroxide (Magnesium Hydrox/Alum Hydrox 30 Ml Oral.Susp) 30 ml PO Q6H PRN PRN Reason: Heartburn/Nausea Baclofen (Baclofen 10 Mg Tablet) 10 mg PO BID [facility] Last Admin: 04/23/24 09:06 Dose: 10 mg Buspirone HCl (Buspirone Hcl 10 Mg Tablet) 10 mg PO BID [facility] Last Admin: 04/23/24 09:06 Dose: 10 mg Clonidine HCl (Clonidine Hcl 0.1 Mg Tablet) 0.1 mg PO BID PRN; Protocol PRN Reason: anxiety Escitalopram Oxalate (Escitalopram Oxalate 20 Mg Tablet) 20 mg PO DAILY [facility] Last Admin: 04/23/24 09:06 Dose: 20 mg Folic Acid (Folic Acid 1 Mg Tablet) 1 mg PO DAILY [facility] Last Admin: 04/23/24 09:06 Dose: 1 mg Haloperidol (Haloperidol 5 Mg Tablet) 10 mg PO BEDTIME [facility] Last Admin: 04/22/24 21:24 Dose: 10 mg Hydroxyzine HCl (Hydroxyzine Hcl 25 Mg Tablet) 25 mg PO Q6H PRN PRN Reason: Anxiety Magnesium Hydroxide (Milk Of Magnesia 30 Ml Oral.Susp) 30 ml PO DAILY PRN PRN Reason: Constipation Multivitamins/Vitamin C (Multivitamin Tablet) 1 tab PO DAILY [facility] Last Admin: 04/23/24 09:06 Dose: 1 tab Nicotine (Nicotine 21 Mg Patch.Td24) 21 mg TRANSDERMA DAILY PRN PRN Reason: nicotine cravings Nicotine Polacrilex (Nicotine Polacrilex 2 Mg Gum) 4 mg BUCCAL Q2H PRN PRN Reason: Nicotine Cravings Thiamine HCl (Thiamine Hcl 100 Mg Tablet) 100 mg PO DAILY [facility] Last Admin: 04/23/24 09:06 Dose: 100 mg Trazodone HCl (Trazodone Hcl 50 Mg Tablet) 50 mg PO BEDTIME [facility] Last Admin: 04/22/24 21:24 Dose: 50 mg Allergies Allergies Allergy/AdvReac Type Severity Reaction Status Date / Time No Known Allergies Allergy Verified 04/18/24 23:53 [No Known Allergies*] Assessment & Plan Assessment & Plan (1) PTSD (post-traumatic stress disorder): Status: Acute Code(s): F43.10 - Post-traumatic stress disorder, unspecified (2) Schizoaffective disorder, depressive type: Status: Acute Code(s): F25.1 - Schizoaffective disorder, depressive type (3) Cocaine use disorder: Status: Acute Code(s): F14.10 - Cocaine abuse, uncomplicated (4) Homeless: Status: Acute Code(s): Z59.00 - Homelessness unspecified (5) HTN (hypertension): Qualifiers: Hypertension type: primary hypertension Qualified Code(s): I10 - Essential (primary) hypertension Status: Acute Code(s): I10 - Essential (primary) hypertension Plan Patient is a 33-year-old male with history of schizophrenia/schizoaffective disorder, PTSD, crack cocaine use disorder, who presents for worsening depression, psychosis in the face of relapse and going off psychiatric medications. Patient reports that when he discharged from [facility] this past October, he was feeling better, no AVH and continue taking his meds for few months and remain sober. He eventually relapsed and then stopped taking medications. Since then he was psychiatrically admitted to [facility] this past spring and then [facility] this past February/March. Since then he has been taking his medications on and off but continued to struggle with cocaine addiction, using daily and patient's depression anxiety significantly increased along with auditory hallucinations of voices mumbling and VH of seeing shadows. Over the past couple weeks he lost his housing and has been homeless, staying at a friend's house but can not go back. Patient said he came to the hospital because of his significant depression and psychotic symptoms and wants to stop using. Denies other substance abuse; denies manic episodes separate from substance use; ongoing flashbacks to traumatic memories Clinical reason/formulation Patient has psychotic illness exacerbated by crack cocaine use and PTSD. He was recently at [facility] and was continued on the same meds however at higher Haldol dose. Patient wants to restart with this med regimen now. Patient currently homeless. Says that his mother may let him live with her in [place] -patient hypertensive; will discuss medication management for this Hosptial course: 04/23 doing better; mood better and denies AVH. Ambivalent about aftercare Plan: CV Q 15 minute checks Restart following: Haldol 10 mg q.h.s. BuSpar 10 mg b.i.d. Lexapro 20 mg daily Clonidine p.r.n. Patient educated on: diagnosis, medication risk/benefits and substance abuse Informed Consent: understands Reason for continued inpatient stay Substantial Risk for: rapid decompensation Time Spent With Patient Time: Total time managing care of this patient today ____ minutes.
[2024-04-23 20:00] VITALS: BP 156/85; PULSE 90; TEMP 2.7; TEMP 36.8; O2SAT 98
[2024-04-23] MEDS: traZODone HCL 50 MG TABLET PO (21:04)
[2024-04-23] MEDS: HaloperidoL 5 MG TABLET 10 MG PO (21:04)
[2024-04-23 21:10] VITALS: BP 156/85
[2024-04-23] MEDS: cloNIDine HCL 0.1 MG TABLET PO (21:10)
[2024-04-23] MEDS: hydrOXYzine HCL 25 MG TABLET PO (21:13)
--- NOTE | 2024-04-24 08:58 | P.PNPSI_ITS ---
Subjective Subjective Date of Service: 04/24/24 Reason For Visit: Cocaine use disorder, depression with psychosis Interim History: Jayjay reports he is OK. He denies current questions or concerns Reports regime is tolerated and effective at this time. He is seen intermittently in milieu, but spending a good deal of time sleeping today. Medication Compliance: Yes Side effects from medications: No Attending Groups: Intermittent Review of Systems Acute medical concerns: No Medical Review of Systems: unchanged Review of Systems Review of Systems Yes all other systems are reviewed and are negative Mental Status Exam Mental Status Exam Patient Appearance: Appropriate Patient Orientation: Person, Place, Time and Situation Level of Consciousness: Alert Patient Behavior: Appropriate, Talkative, Cooperative and Good Eye Contact Mood Description: Calm Affect Description: Calm Patient Cognition Impaired: No Ability to Follow Directions: Good Speech Pattern: Spontaneous Speech Perceptual Disturbances: Depersonalization and Derealization Thought Process: Goal Oriented Judgement: Fair Diagnostics Vital Signs (24Hr): Vital Signs - 24 hr 04/23/24 20:00 04/23/24 21:10 Temperature 36.8 F L Pulse Rate 90 Blood Pressure 156/85 H 156/85 H Pulse Oximetry 98 Oxygen Delivery Method Room Air BMI result Body Mass Index 25.2 Labs 04/19/24 00:19 04/19/24 00:19 Medications Medications Current Medications Acetaminophen (Acetaminophen 325 Mg Tablet) 650 mg PO Q6H PRN PRN Reason: Headache/Pain Mild Scale (1-3) Al Hydroxide/Mg Hydroxide (Magnesium Hydrox/Alum Hydrox 30 Ml Oral.Susp) 30 ml PO Q6H PRN PRN Reason: Heartburn/Nausea Baclofen (Baclofen 10 Mg Tablet) 10 mg PO BID [facility] Last Admin: 04/23/24 21:04 Dose: 10 mg Buspirone HCl (Buspirone Hcl 10 Mg Tablet) 10 mg PO BID [facility] Last Admin: 04/23/24 21:04 Dose: 10 mg Clonidine HCl (Clonidine Hcl 0.1 Mg Tablet) 0.1 mg PO BID PRN; Protocol PRN Reason: anxiety Last Admin: 04/23/24 21:10 Dose: 0.1 mg Escitalopram Oxalate (Escitalopram Oxalate 20 Mg Tablet) 20 mg PO DAILY [facility] Last Admin: 04/23/24 09:06 Dose: 20 mg Folic Acid (Folic Acid 1 Mg Tablet) 1 mg PO DAILY [facility] Last Admin: 04/23/24 09:06 Dose: 1 mg Haloperidol (Haloperidol 5 Mg Tablet) 10 mg PO BEDTIME [facility] Last Admin: 04/23/24 21:04 Dose: 10 mg Hydroxyzine HCl (Hydroxyzine Hcl 25 Mg Tablet) 25 mg PO Q6H PRN PRN Reason: Anxiety Last Admin: 04/23/24 21:13 Dose: 25 mg Magnesium Hydroxide (Milk Of Magnesia 30 Ml Oral.Susp) 30 ml PO DAILY PRN PRN Reason: Constipation Multivitamins/Vitamin C (Multivitamin Tablet) 1 tab PO DAILY [facility] Last Admin: 04/23/24 09:06 Dose: 1 tab Nicotine (Nicotine 21 Mg Patch.Td24) 21 mg TRANSDERMA DAILY PRN PRN Reason: nicotine cravings Nicotine Polacrilex (Nicotine Polacrilex 2 Mg Gum) 4 mg BUCCAL Q2H PRN PRN Reason: Nicotine Cravings Thiamine HCl (Thiamine Hcl 100 Mg Tablet) 100 mg PO DAILY [facility] Last Admin: 04/23/24 09:06 Dose: 100 mg Trazodone HCl (Trazodone Hcl 50 Mg Tablet) 50 mg PO BEDTIME [facility] Last Admin: 04/23/24 21:04 Dose: 50 mg Allergies Allergies Allergy/AdvReac Type Severity Reaction Status Date / Time No Known Allergies Allergy Verified 04/18/24 23:53 [No Known Allergies*] Assessment & Plan Assessment & Plan (1) PTSD (post-traumatic stress disorder): Status: Acute Code(s): F43.10 - Post-traumatic stress disorder, unspecified (2) Schizoaffective disorder, depressive type: Status: Acute Code(s): F25.1 - Schizoaffective disorder, depressive type (3) Cocaine use disorder: Status: Acute Code(s): F14.10 - Cocaine abuse, uncomplicated (4) Homeless: Status: Acute Code(s): Z59.00 - Homelessness unspecified (5) HTN (hypertension): Qualifiers: Hypertension type: primary hypertension Qualified Code(s): I10 - Essential (primary) hypertension Status: Acute Code(s): I10 - Essential (primary) hypertension Plan Patient is a 33-year-old male with history of schizophrenia/schizoaffective disorder, PTSD, crack cocaine use disorder, who presents for worsening depression, psychosis in the face of relapse and going off psychiatric medications. Patient reports that when he discharged from [facility] this past October, he was feeling better, no AVH and continue taking his meds for few months and remain sober. He eventually relapsed and then stopped taking medications. Since then he was psychiatrically admitted to [facility] this past spring and then [facility] this past February/March. Since then he has been taking his medications on and off but continued to struggle with cocaine addiction, using daily and patient's depression anxiety significantly increased along with auditory hallucinations of voices mumbling and VH of seeing shadows. Over the past couple weeks he lost his housing and has been homeless, staying at a friend's house but can not go back. Patient said he came to the hospital because of his significant depression and psychotic symptoms and wants to stop using. Denies other substance abuse; denies manic episodes separate from substance use; ongoing flashbacks to traumatic memories Clinical reason/formulation Patient has psychotic illness exacerbated by crack cocaine use and PTSD. He was recently at [facility] and was continued on the same meds however at higher Haldol dose. Patient wants to restart with this med regimen now. Patient currently homeless. Says that his mother may let him live with her in [place] -patient hypertensive; will discuss medication management for this Plan: CV Q 15 minute checks Restart following: Haldol 10 mg q.h.s. BuSpar 10 mg b.i.d. Lexapro 20 mg daily Clonidine p.r.n. 04/24: Continue tx plan Reason for continued inpatient stay Substantial Risk for: rapid decompensation Time Spent With Patient Time: Total time managing care of this patient today ____ minutes.
[2024-04-24 09:29] VITALS: BP 131/59; PULSE 62; TEMP 36.3; O2SAT 97
[2024-04-24] MEDS: busPIRone HCl 10 MG TABLET PO ×2 (09:34→20:50)
[2024-04-24] MEDS: Folic Acid 1 MG TABLET PO (09:34)
[2024-04-24] MEDS: Escitalopram Oxalate 20 MG TABLET PO (09:34)
[2024-04-24] MEDS: Thiamine HCL 100 MG TABLET PO (09:34)
[2024-04-24] MEDS: Baclofen 10 MG TABLET PO ×2 (09:34→20:50)
[2024-04-24] MEDS: Multivitamin TABLET 1 TAB PO (09:35)
[2024-04-24 20:00] VITALS: BP 150/87; PULSE 93; TEMP 36.7; O2SAT 97
[2024-04-24] MEDS: HaloperidoL 5 MG TABLET 10 MG PO (20:50)
[2024-04-24] MEDS: traZODone HCL 50 MG TABLET PO (20:50)
[2024-04-24] MEDS: cloNIDine HCL 0.1 MG TABLET PO (20:56)
[2024-04-24] MEDS: hydrOXYzine HCL 25 MG TABLET PO (20:56)
--- NOTE | 2024-04-24 23:35 | PC.NURSE ---
PRN Clonidine and Atarax requested with HS medications. Patient observed to be sleeping soundly.
[2024-04-25 08:00] VITALS: BP 110/69; PULSE 69; RESP 14; TEMP 36.4; O2SAT 99
[2024-04-25] MEDS: Escitalopram Oxalate 20 MG TABLET PO (08:45)
[2024-04-25] MEDS: busPIRone HCl 10 MG TABLET PO ×2 (08:45→20:38)
[2024-04-25] MEDS: Folic Acid 1 MG TABLET PO (08:45)
[2024-04-25] MEDS: Baclofen 10 MG TABLET PO ×2 (08:45→20:37)
[2024-04-25] MEDS: Multivitamin TABLET 1 TAB PO (08:46)
[2024-04-25] MEDS: Thiamine HCL 100 MG TABLET PO (08:46)
--- NOTE | 2024-04-25 09:06 | HO.PSYCHPN ---
Subjective Subjective Date of Service: 04/25/24 Reason For Visit: Cocaine use disorder, depression with psychosis Subjective Notes: Conditional Voluntary Healthcare Proxy: No Guardianship: No Medical Problems Affecting Mental Status: No Interim History: Pt reports he is doing well. Feeling relief of sx. Believes regime to be effective and helpful. I don't have any symptoms. Tells team he is wanting a program and needs one to stay on point Spending time resting, intermittently visable in milieu. Medication Compliance: Yes Side effects from medications: No Attending Groups: Intermittent Review of Systems Acute medical concerns: No Review of Systems Review of Systems Yes all other systems are reviewed and are negative (denies) Mental Status Exam Mental Status Exam Patient Appearance: Appropriate Patient Orientation: Person, Place, Time and Situation Level of Consciousness: Alert Patient Behavior: Appropriate, Talkative, Cooperative and Good Eye Contact Mood Description: Calm Affect Description: Calm Patient Cognition Impaired: No Ability to Follow Directions: Good Speech Pattern: Spontaneous Speech Perceptual Disturbances: Depersonalization and Derealization Thought Process: Goal Oriented Judgement: Fair Diagnostics Vital Signs (24Hr): Vital Signs - 24 hr 04/24/24 09:29 04/24/24 20:00 04/25/24 08:00 Temperature 97.3 F 98.1 F 97.5 F Pulse Rate 62 93 69 Respiratory Rate 14 Blood Pressure 131/59 L 150/87 H 110/69 Pulse Oximetry 97 97 99 Oxygen Delivery Method Room Air Room Air Room Air BMI result Body Mass Index 25.2 Labs 04/19/24 00:19 04/19/24 00:19 Medications Medications Current Medications Acetaminophen (Acetaminophen 325 Mg Tablet) 650 mg PO Q6H PRN PRN Reason: Headache/Pain Mild Scale (1-3) Al Hydroxide/Mg Hydroxide (Magnesium Hydrox/Alum Hydrox 30 Ml Oral.Susp) 30 ml PO Q6H PRN PRN Reason: Heartburn/Nausea Baclofen (Baclofen 10 Mg Tablet) 10 mg PO BID [facility] Last Admin: 04/25/24 08:45 Dose: 10 mg Buspirone HCl (Buspirone Hcl 10 Mg Tablet) 10 mg PO BID [facility] Last Admin: 04/25/24 08:45 Dose: 10 mg Clonidine HCl (Clonidine Hcl 0.1 Mg Tablet) 0.1 mg PO BID PRN; Protocol PRN Reason: anxiety Last Admin: 04/24/24 20:56 Dose: 0.1 mg Escitalopram Oxalate (Escitalopram Oxalate 20 Mg Tablet) 20 mg PO DAILY [facility] Last Admin: 04/25/24 08:45 Dose: 20 mg Folic Acid (Folic Acid 1 Mg Tablet) 1 mg PO DAILY [facility] Last Admin: 04/25/24 08:45 Dose: 1 mg Haloperidol (Haloperidol 5 Mg Tablet) 10 mg PO BEDTIME [facility] Last Admin: 04/24/24 20:50 Dose: 10 mg Hydroxyzine HCl (Hydroxyzine Hcl 25 Mg Tablet) 25 mg PO Q6H PRN PRN Reason: Anxiety Last Admin: 04/24/24 20:56 Dose: 25 mg Magnesium Hydroxide (Milk Of Magnesia 30 Ml Oral.Susp) 30 ml PO DAILY PRN PRN Reason: Constipation Multivitamins/Vitamin C (Multivitamin Tablet) 1 tab PO DAILY [facility] Last Admin: 04/25/24 08:46 Dose: 1 tab Nicotine (Nicotine 21 Mg Patch.Td24) 21 mg TRANSDERMA DAILY PRN PRN Reason: nicotine cravings Nicotine Polacrilex (Nicotine Polacrilex 2 Mg Gum) 4 mg BUCCAL Q2H PRN PRN Reason: Nicotine Cravings Thiamine HCl (Thiamine Hcl 100 Mg Tablet) 100 mg PO DAILY [facility] Last Admin: 04/25/24 08:46 Dose: 100 mg Trazodone HCl (Trazodone Hcl 50 Mg Tablet) 50 mg PO BEDTIME [facility] Last Admin: 04/24/24 20:50 Dose: 50 mg Allergies Allergies Allergy/AdvReac Type Severity Reaction Status Date / Time No Known Allergies Allergy Verified 04/18/24 23:53 [No Known Allergies*] Assessment & Plan Assessment & Plan (1) PTSD (post-traumatic stress disorder): Status: Acute Code(s): F43.10 - Post-traumatic stress disorder, unspecified (2) Schizoaffective disorder, depressive type: Status: Acute Code(s): F25.1 - Schizoaffective disorder, depressive type (3) Cocaine use disorder: Status: Acute Code(s): F14.10 - Cocaine abuse, uncomplicated (4) Homeless: Status: Acute Code(s): Z59.00 - Homelessness unspecified (5) HTN (hypertension): Qualifiers: Hypertension type: primary hypertension Qualified Code(s): I10 - Essential (primary) hypertension Status: Acute Code(s): I10 - Essential (primary) hypertension Plan Patient is a 33-year-old male with history of schizophrenia/schizoaffective disorder, PTSD, crack cocaine use disorder, who presents for worsening depression, psychosis in the face of relapse and going off psychiatric medications. Patient reports that when he discharged from [facility] this past October, he was feeling better, no AVH and continue taking his meds for few months and remain sober. He eventually relapsed and then stopped taking medications. Since then he was psychiatrically admitted to [facility] this past spring and then [facility] this past February/March. Since then he has been taking his medications on and off but continued to struggle with cocaine addiction, using daily and patient's depression anxiety significantly increased along with auditory hallucinations of voices mumbling and VH of seeing shadows. Over the past couple weeks he lost his housing and has been homeless, staying at a friend's house but can not go back. Patient said he came to the hospital because of his significant depression and psychotic symptoms and wants to stop using. Denies other substance abuse; denies manic episodes separate from substance use; ongoing flashbacks to traumatic memories Clinical reason/formulation Patient has psychotic illness exacerbated by crack cocaine use and PTSD. He was recently at [facility] and was continued on the same meds however at higher Haldol dose. Patient wants to restart with this med regimen now. Patient currently homeless. Says that his mother may let him live with her in [place] -patient hypertensive; will discuss medication management for this Plan: CV Q 15 minute checks Restart following: Haldol 10 mg q.h.s. BuSpar 10 mg b.i.d. Lexapro 20 mg daily Clonidine p.r.n. 04/24: Continue tx plan 04/25: Continue tx plan Reason for continued inpatient stay Substantial Risk for: rapid decompensation Time Spent With Patient Time: Total time managing care of this patient today ____ minutes.
[2024-04-25 20:00] VITALS: BP 137/91; PULSE 83; TEMP 36.5; O2SAT 98
[2024-04-25] MEDS: traZODone HCL 50 MG TABLET PO (20:36)
[2024-04-25] MEDS: HaloperidoL 5 MG TABLET 10 MG PO (20:38)
[2024-04-25 21:31] VITALS: BP 133/74
[2024-04-25] MEDS: hydrOXYzine HCL 25 MG TABLET PO (21:31)
[2024-04-25] MEDS: cloNIDine HCL 0.1 MG TABLET PO (21:31)
[2024-04-26 05:00] VITALS: BP 133/74; PULSE 82; TEMP 36.4
[2024-04-26 08:00] VITALS: BP 139/72; PULSE 72; TEMP 37.6; O2SAT 86
[2024-04-26] MEDS: Folic Acid 1 MG TABLET PO (09:22)
[2024-04-26] MEDS: Escitalopram Oxalate 20 MG TABLET PO (09:22)
[2024-04-26] MEDS: busPIRone HCl 10 MG TABLET PO ×2 (09:22→22:05)
[2024-04-26] MEDS: Thiamine HCL 100 MG TABLET PO (09:23)
[2024-04-26] MEDS: Baclofen 10 MG TABLET PO ×2 (09:23→22:04)
[2024-04-26] MEDS: Multivitamin TABLET 1 TAB PO (09:23)
--- NOTE | 2024-04-26 09:54 | HO.PSYCHPN ---
Subjective Subjective Date of Service: 04/26/24 Reason For Visit: Cocaine use disorder, depression with psychosis Interim History: met with patient; discussed with team pt reports he is good and that depression is gone; denies any AVH. Feels Medications working well. He is eating and sleeping well. Pt very much wants to attend program to help w/ sobriety Mental Status Exam Mental Status Exam Narrative: Pt is alert and oriented; behavior is cooperative, friendly and calm; patient is not in distress; dressed in casual attire with scarf on head; mood is described as good and affect congruent; eye contact appropriate; Speech is normal rate, volume and prosody and not pressured; no psychomotor agitation/retardation present; thought process is organized and goal directed; Thought content is on tx; otherwise pertinent to relevant topics and without any delusional content, paranoid ideations or grandiosity; denies any SI/HI. Denies AVH.. Patients insight and judgment are fair. Diagnostics Vital Signs (24Hr): Vital Signs - 24 hr 04/25/24 20:00 04/25/24 21:31 04/26/24 05:00 Temperature 97.7 F 97.6 F Pulse Rate 83 82 Blood Pressure 137/91 H 133/74 133/74 Pulse Oximetry 98 Oxygen Delivery Method Room Air BMI result Body Mass Index 25.2 Labs 04/19/24 00:19 04/19/24 00:19 Medications Medications Current Medications Acetaminophen (Acetaminophen 325 Mg Tablet) 650 mg PO Q6H PRN PRN Reason: Headache/Pain Mild Scale (1-3) Al Hydroxide/Mg Hydroxide (Magnesium Hydrox/Alum Hydrox 30 Ml Oral.Susp) 30 ml PO Q6H PRN PRN Reason: Heartburn/Nausea Baclofen (Baclofen 10 Mg Tablet) 10 mg PO BID [facility] Last Admin: 04/26/24 09:23 Dose: 10 mg Buspirone HCl (Buspirone Hcl 10 Mg Tablet) 10 mg PO BID [facility] Last Admin: 04/26/24 09:22 Dose: 10 mg Clonidine HCl (Clonidine Hcl 0.1 Mg Tablet) 0.1 mg PO BID PRN; Protocol PRN Reason: anxiety Last Admin: 04/25/24 21:31 Dose: 0.1 mg Escitalopram Oxalate (Escitalopram Oxalate 20 Mg Tablet) 20 mg PO DAILY [facility] Last Admin: 04/26/24 09:22 Dose: 20 mg Folic Acid (Folic Acid 1 Mg Tablet) 1 mg PO DAILY [facility] Last Admin: 04/26/24 09:22 Dose: 1 mg Haloperidol (Haloperidol 5 Mg Tablet) 10 mg PO BEDTIME [facility] Last Admin: 04/25/24 20:38 Dose: 10 mg Hydroxyzine HCl (Hydroxyzine Hcl 25 Mg Tablet) 25 mg PO Q6H PRN PRN Reason: Anxiety Last Admin: 04/25/24 21:31 Dose: 25 mg Magnesium Hydroxide (Milk Of Magnesia 30 Ml Oral.Susp) 30 ml PO DAILY PRN PRN Reason: Constipation Multivitamins/Vitamin C (Multivitamin Tablet) 1 tab PO DAILY [facility] Last Admin: 04/26/24 09:23 Dose: 1 tab Nicotine (Nicotine 21 Mg Patch.Td24) 21 mg TRANSDERMA DAILY PRN PRN Reason: nicotine cravings Nicotine Polacrilex (Nicotine Polacrilex 2 Mg Gum) 4 mg BUCCAL Q2H PRN PRN Reason: Nicotine Cravings Thiamine HCl (Thiamine Hcl 100 Mg Tablet) 100 mg PO DAILY [facility] Last Admin: 04/26/24 09:23 Dose: 100 mg Trazodone HCl (Trazodone Hcl 50 Mg Tablet) 50 mg PO BEDTIME [facility] Last Admin: 04/25/24 20:36 Dose: 50 mg Allergies Allergies Allergy/AdvReac Type Severity Reaction Status Date / Time No Known Allergies Allergy Verified 04/18/24 23:53 [No Known Allergies*] Assessment & Plan Assessment & Plan (1) Schizoaffective disorder, depressive type: Status: Acute Code(s): F25.1 - Schizoaffective disorder, depressive type (2) PTSD (post-traumatic stress disorder): Status: Acute Code(s): F43.10 - Post-traumatic stress disorder, unspecified (3) Cocaine use disorder: Status: Acute Code(s): F14.10 - Cocaine abuse, uncomplicated (4) Homeless: Status: Acute Code(s): Z59.00 - Homelessness unspecified (5) HTN (hypertension): Qualifiers: Hypertension type: primary hypertension Qualified Code(s): I10 - Essential (primary) hypertension Status: Acute Code(s): I10 - Essential (primary) hypertension Plan Patient is a 33-year-old male with history of schizophrenia/schizoaffective disorder, PTSD, crack cocaine use disorder, who presents for worsening depression, psychosis in the face of relapse and going off psychiatric medications. Patient reports that when he discharged from [facility] this past October, he was feeling better, no AVH and continue taking his meds for few months and remain sober. He eventually relapsed and then stopped taking medications. Since then he was psychiatrically admitted to [facility] this past spring and then [facility] this past February/March. Since then he has been taking his medications on and off but continued to struggle with cocaine addiction, using daily and patient's depression anxiety significantly increased along with auditory hallucinations of voices mumbling and VH of seeing shadows. Over the past couple weeks he lost his housing and has been homeless, staying at a friend's house but can not go back. Patient said he came to the hospital because of his significant depression and psychotic symptoms and wants to stop using. Denies other substance abuse; denies manic episodes separate from substance use; ongoing flashbacks to traumatic memories Clinical reason/formulation Patient has psychotic illness exacerbated by crack cocaine use and PTSD. He was recently at [facility] and was continued on the same meds however at higher Haldol dose. Patient wants to restart with this med regimen now. Patient currently homeless. Says that his mother may let him live with her in [place] -patient hypertensive; will discuss medication management for this Hospital course: 04/26 pt reports he is good and that depression is gone; denies any AVH. Feels Medications working well. He is eating and sleeping well. Pt very much wants to attend program to help w/ sobriety pt remains in good behavioral and impulse control and appropriate with peers and staff Pt is stable on current medication regimen. Plan: CV Q 15 minute checks Haldol 10 mg q.h.s. BuSpar 10 mg b.i.d. Lexapro 20 mg daily Clonidine p.r.n. Patient educated on: diagnosis, medication risk/benefits, substance abuse and therapeutic strategies Informed Consent: understands Reason for continued inpatient stay Substantial Risk for: stable for discharge Time Spent With Patient Time: Total time managing care of this patient today ____ minutes.
[2024-04-26 10:00] VITALS: BP 120/56; PULSE 67; TEMP 38; O2SAT 91
[2024-04-26 16:13] VITALS: BP 131/69
[2024-04-26] MEDS: hydrOXYzine HCL 25 MG TABLET PO (16:13)
[2024-04-26] MEDS: cloNIDine HCL 0.1 MG TABLET PO (16:13)
[2024-04-26 20:00] VITALS: BP 126/58; PULSE 72; TEMP 36.4; O2SAT 98
[2024-04-26] MEDS: HaloperidoL 5 MG TABLET 10 MG PO (22:04)
[2024-04-26] MEDS: traZODone HCL 50 MG TABLET PO (22:04)
[2024-04-27 08:00] VITALS: BP 110/57; PULSE 66; RESP 16; TEMP 36.4; O2SAT 98
[2024-04-27] MEDS: Escitalopram Oxalate 20 MG TABLET PO (09:32)
[2024-04-27] MEDS: busPIRone HCl 10 MG TABLET PO ×2 (09:32→20:55)
[2024-04-27] MEDS: Multivitamin TABLET 1 TAB PO (09:33)
[2024-04-27] MEDS: Baclofen 10 MG TABLET PO ×2 (09:33→20:55)
[2024-04-27] MEDS: Folic Acid 1 MG TABLET PO (09:33)
[2024-04-27] MEDS: Thiamine HCL 100 MG TABLET PO (09:33)
--- NOTE | 2024-04-27 13:48 | P.PNPSI_ITS ---
Subjective Subjective Date of Service: 04/27/24 Reason For Visit: Cocaine use disorder, depression with psychosis Interim History: With patient; discussed with team Patient continues to report doing well, good mood, no AH, eating and sleeping well. Remains focused on getting into a program to help with sobriety. Remains in good behavioral and impulse control and appropriate with peers and staff Mental Status Exam Mental Status Exam Narrative: Pt is alert and oriented; behavior is cooperative, friendly and calm; patient is not in distress; dressed in casual attire with scarf on head; mood is described as good and affect congruent; eye contact appropriate; Speech is normal rate, volume and prosody and not pressured; no psychomotor agitation/retardation present; thought process is organized and goal directed; Thought content is on tx; otherwise pertinent to relevant topics and without any delusional content, paranoid ideations or grandiosity; denies any SI/HI. Denies AVH.. Patients insight and judgment are fair. Diagnostics Vital Signs (24Hr): Vital Signs - 24 hr 04/26/24 16:13 04/26/24 20:00 04/27/24 08:00 Temperature 97.5 F 97.5 F Pulse Rate 72 66 Respiratory Rate 16 Blood Pressure 131/69 126/58 L 110/57 L Pulse Oximetry 98 98 Oxygen Delivery Method Room Air Room Air BMI result Body Mass Index 25.2 Labs 04/19/24 00:19 04/19/24 00:19 Medications Medications Current Medications Acetaminophen (Acetaminophen 325 Mg Tablet) 650 mg PO Q6H PRN PRN Reason: Headache/Pain Mild Scale (1-3) Al Hydroxide/Mg Hydroxide (Magnesium Hydrox/Alum Hydrox 30 Ml Oral.Susp) 30 ml PO Q6H PRN PRN Reason: Heartburn/Nausea Baclofen (Baclofen 10 Mg Tablet) 10 mg PO BID [facility] Last Admin: 04/27/24 09:33 Dose: 10 mg Buspirone HCl (Buspirone Hcl 10 Mg Tablet) 10 mg PO BID [facility] Last Admin: 04/27/24 09:32 Dose: 10 mg Clonidine HCl (Clonidine Hcl 0.1 Mg Tablet) 0.1 mg PO BID PRN; Protocol PRN Reason: anxiety Last Admin: 04/26/24 16:13 Dose: 0.1 mg Escitalopram Oxalate (Escitalopram Oxalate 20 Mg Tablet) 20 mg PO DAILY [facility] Last Admin: 04/27/24 09:32 Dose: 20 mg Folic Acid (Folic Acid 1 Mg Tablet) 1 mg PO DAILY [facility] Last Admin: 04/27/24 09:33 Dose: 1 mg Haloperidol (Haloperidol 5 Mg Tablet) 10 mg PO BEDTIME [facility] Last Admin: 04/26/24 22:04 Dose: 10 mg Hydroxyzine HCl (Hydroxyzine Hcl 25 Mg Tablet) 25 mg PO Q6H PRN PRN Reason: Anxiety Last Admin: 04/26/24 16:13 Dose: 25 mg Magnesium Hydroxide (Milk Of Magnesia 30 Ml Oral.Susp) 30 ml PO DAILY PRN PRN Reason: Constipation Multivitamins/Vitamin C (Multivitamin Tablet) 1 tab PO DAILY [facility] Last Admin: 04/27/24 09:33 Dose: 1 tab Nicotine (Nicotine 21 Mg Patch.Td24) 21 mg TRANSDERMA DAILY PRN PRN Reason: nicotine cravings Nicotine Polacrilex (Nicotine Polacrilex 2 Mg Gum) 4 mg BUCCAL Q2H PRN PRN Reason: Nicotine Cravings Thiamine HCl (Thiamine Hcl 100 Mg Tablet) 100 mg PO DAILY [facility] Last Admin: 04/27/24 09:33 Dose: 100 mg Trazodone HCl (Trazodone Hcl 50 Mg Tablet) 50 mg PO BEDTIME [facility] Last Admin: 04/26/24 22:04 Dose: 50 mg Allergies Allergies Allergy/AdvReac Type Severity Reaction Status Date / Time No Known Allergies Allergy Verified 04/18/24 23:53 [No Known Allergies*] Assessment & Plan Assessment & Plan (1) Schizoaffective disorder, depressive type: Status: Acute Code(s): F25.1 - Schizoaffective disorder, depressive type (2) PTSD (post-traumatic stress disorder): Status: Acute Code(s): F43.10 - Post-traumatic stress disorder, unspecified (3) Cocaine use disorder: Status: Acute Code(s): F14.10 - Cocaine abuse, uncomplicated (4) Homeless: Status: Acute Code(s): Z59.00 - Homelessness unspecified (5) HTN (hypertension): Qualifiers: Hypertension type: primary hypertension Qualified Code(s): I10 - Essential (primary) hypertension Status: Acute Code(s): I10 - Essential (primary) hypertension Plan Patient is a 33-year-old male with history of schizophrenia/schizoaffective disorder, PTSD, crack cocaine use disorder, who presents for worsening depression, psychosis in the face of relapse and going off psychiatric medications. Patient reports that when he discharged from [facility] this past October, he was feeling better, no AVH and continue taking his meds for few months and remain sober. He eventually relapsed and then stopped taking medications. Since then he was psychiatrically admitted to [facility] this past spring and then [facility] this past February/March. Since then he has been taking his medications on and off but continued to struggle with cocaine addiction, using daily and patient's depression anxiety significantly increased along with auditory hallucinations of voices mumbling and VH of seeing shadows. Over the past couple weeks he lost his housing and has been homeless, staying at a friend's house but can not go back. Patient said he came to the hospital because of his significant depression and psychotic symptoms and wants to stop using. Denies other substance abuse; denies manic episodes separate from substance use; ongoing flashbacks to traumatic memories Clinical reason/formulation Patient has psychotic illness exacerbated by crack cocaine use and PTSD. He was recently at [facility] and was continued on the same meds however at higher Haldol dose. Patient wants to restart with this med regimen now. Patient currently homeless. Says that his mother may let him live with her in [place] -patient hypertensive; will discuss medication management for this Hospital course: 04/26 pt reports he is good and that depression is gone; denies any AVH. Feels Medications working well. He is eating and sleeping well. Pt very much wants to attend program to help w/ sobriety 04/27 Patient continues to report doing well, good mood, no AH, eating and sleeping well. Remains focused on getting into a program to help with sobriety. Continue current treatment regimen pt remains in good behavioral and impulse control and appropriate with peers and staff Pt is stable on current medication regimen. Plan: CV Q 15 minute checks Haldol 10 mg q.h.s. BuSpar 10 mg b.i.d. Lexapro 20 mg daily Clonidine p.r.n. Patient educated on: diagnosis, medication risk/benefits and substance abuse Informed Consent: understands Reason for continued inpatient stay Substantial Risk for: stable for discharge Time Spent With Patient Time: Total time managing care of this patient today ____ minutes.
[2024-04-27 20:00] VITALS: BP 116/63; PULSE 72; TEMP 36.3; O2SAT 100
[2024-04-27] MEDS: traZODone HCL 50 MG TABLET PO (20:55)
[2024-04-27] MEDS: HaloperidoL 5 MG TABLET 10 MG PO (20:55)
[2024-04-27 21:27] VITALS: BP 116/63
[2024-04-27] MEDS: hydrOXYzine HCL 25 MG TABLET PO (21:27)
[2024-04-27] MEDS: cloNIDine HCL 0.1 MG TABLET PO (21:27)
--- NOTE | 2024-04-28 | ECG_ITS ---
Test Reason : qtc Blood Pressure : / mmHG Vent. Rate : 069 BPM Atrial Rate : 069 BPM P-R Int : 162 ms QRS Dur : 094 ms QT Int : 384 ms P-R-T Axes : 066 -40 044 degrees QTc Int : 411 ms Normal sinus rhythm Left axis deviation Abnormal ECG When compared with ECG of 19-APR-2024 00:03, No significant change was found Referred By: Luan Ribeiro Electronically Signed By:Austin Isidro
[2024-04-28 08:00] VITALS: BP 113/62; PULSE 69; RESP 16; TEMP 36.4; O2SAT 100
--- NOTE | 2024-04-28 08:54 | P.PNPSI_ITS ---
Subjective Subjective Date of Service: 04/28/24 Reason For Visit: Cocaine use disorder, depression with psychosis Interim History: Met with patient; discussed with team reports doing well, good mood. Talking more freely. Hoping to get into program Discussed getting EKG just to take QTC Mental Status Exam Mental Status Exam Narrative: Pt is alert and oriented; behavior is cooperative, friendly and calm; patient is not in distress; dressed in casual attire with scarf on head; mood is described as good and affect congruent; eye contact appropriate; Speech is normal rate, volume and prosody and not pressured; no psychomotor agitation/retardation present; thought process is organized and goal directed; Thought content is on tx; otherwise pertinent to relevant topics and without any delusional content, paranoid ideations or grandiosity; denies any SI/HI. Denies AVH.. Patients insight and judgment are fair. Diagnostics Vital Signs (24Hr): Vital Signs - 24 hr 04/27/24 20:00 04/27/24 21:27 04/28/24 08:00 Temperature 97.4 F 97.6 F Pulse Rate 72 69 Respiratory Rate 16 Blood Pressure 116/63 116/63 113/62 Pulse Oximetry 100 100 Oxygen Delivery Method Room Air Room Air BMI result Body Mass Index 25.2 Labs 04/19/24 00:19 04/19/24 00:19 Medications Medications Current Medications Acetaminophen (Acetaminophen 325 Mg Tablet) 650 mg PO Q6H PRN PRN Reason: Headache/Pain Mild Scale (1-3) Al Hydroxide/Mg Hydroxide (Magnesium Hydrox/Alum Hydrox 30 Ml Oral.Susp) 30 ml PO Q6H PRN PRN Reason: Heartburn/Nausea Baclofen (Baclofen 10 Mg Tablet) 10 mg PO BID [facility] Last Admin: 04/27/24 20:55 Dose: 10 mg Buspirone HCl (Buspirone Hcl 10 Mg Tablet) 10 mg PO BID [facility] Last Admin: 04/27/24 20:55 Dose: 10 mg Clonidine HCl (Clonidine Hcl 0.1 Mg Tablet) 0.1 mg PO BID PRN; Protocol PRN Reason: anxiety Last Admin: 04/27/24 21:27 Dose: 0.1 mg Escitalopram Oxalate (Escitalopram Oxalate 20 Mg Tablet) 20 mg PO DAILY [facility] Last Admin: 04/27/24 09:32 Dose: 20 mg Folic Acid (Folic Acid 1 Mg Tablet) 1 mg PO DAILY [facility] Last Admin: 04/27/24 09:33 Dose: 1 mg Haloperidol (Haloperidol 5 Mg Tablet) 10 mg PO BEDTIME [facility] Last Admin: 04/27/24 20:55 Dose: 10 mg Hydroxyzine HCl (Hydroxyzine Hcl 25 Mg Tablet) 25 mg PO Q6H PRN PRN Reason: Anxiety Last Admin: 04/27/24 21:27 Dose: 25 mg Magnesium Hydroxide (Milk Of Magnesia 30 Ml Oral.Susp) 30 ml PO DAILY PRN PRN Reason: Constipation Multivitamins/Vitamin C (Multivitamin Tablet) 1 tab PO DAILY [facility] Last Admin: 04/27/24 09:33 Dose: 1 tab Nicotine (Nicotine 21 Mg Patch.Td24) 21 mg TRANSDERMA DAILY PRN PRN Reason: nicotine cravings Nicotine Polacrilex (Nicotine Polacrilex 2 Mg Gum) 4 mg BUCCAL Q2H PRN PRN Reason: Nicotine Cravings Thiamine HCl (Thiamine Hcl 100 Mg Tablet) 100 mg PO DAILY [facility] Last Admin: 04/27/24 09:33 Dose: 100 mg Trazodone HCl (Trazodone Hcl 50 Mg Tablet) 50 mg PO BEDTIME [facility] Last Admin: 04/27/24 20:55 Dose: 50 mg Allergies Allergies Allergy/AdvReac Type Severity Reaction Status Date / Time No Known Allergies Allergy Verified 04/18/24 23:53 [No Known Allergies*] Assessment & Plan Assessment & Plan (1) Schizoaffective disorder, depressive type: Status: Acute Code(s): F25.1 - Schizoaffective disorder, depressive type (2) PTSD (post-traumatic stress disorder): Status: Acute Code(s): F43.10 - Post-traumatic stress disorder, unspecified (3) Cocaine use disorder: Status: Acute Code(s): F14.10 - Cocaine abuse, uncomplicated (4) Homeless: Status: Acute Code(s): Z59.00 - Homelessness unspecified (5) HTN (hypertension): Qualifiers: Hypertension type: primary hypertension Qualified Code(s): I10 - Essential (primary) hypertension Status: Acute Code(s): I10 - Essential (primary) hypertension Plan Patient is a 33-year-old male with history of schizophrenia/schizoaffective disorder, PTSD, crack cocaine use disorder, who presents for worsening depression, psychosis in the face of relapse and going off psychiatric medications. Patient reports that when he discharged from [facility] this past October, he was feeling better, no AVH and continue taking his meds for few months and remain sober. He eventually relapsed and then stopped taking medications. Since then he was psychiatrically admitted to [facility] this past spring and then [facility] this past February/March. Since then he has been taking his medications on and off but continued to struggle with cocaine addiction, using daily and patient's depression anxiety significantly increased along with auditory hallucinations of voices mumbling and VH of seeing shadows. Over the past couple weeks he lost his housing and has been homeless, staying at a friend's house but can not go back. Patient said he came to the hospital because of his significant depression and psychotic symptoms and wants to stop using. Denies other substance abuse; denies manic episodes separate from substance use; ongoing flashbacks to traumatic memories Clinical reason/formulation Patient has psychotic illness exacerbated by crack cocaine use and PTSD. He was recently at [facility] and was continued on the same meds however at higher Haldol dose. Patient wants to restart with this med regimen now. Patient currently homeless. Says that his mother may let him live with her in [place] -patient hypertensive; will discuss medication management for this Hospital course: 04/26 pt reports he is good and that depression is gone; denies any AVH. Feels Medications working well. He is eating and sleeping well. Pt very much wants to attend program to help w/ sobriety 04/27 Patient continues to report doing well, good mood, no AH, eating and sleeping well. Remains focused on getting into a program to help with sobriety. Continue current treatment regimen 04/28 doing well; good mood; meds working well. -QTc 411 pt remains in good behavioral and impulse control and appropriate with peers and staff Pt is stable on current medication regimen. Plan: CV Q 15 minute checks Haldol 10 mg q.h.s. BuSpar 10 mg b.i.d. Lexapro 20 mg daily Clonidine p.r.n. Patient educated on: diagnosis and medication risk/benefits Informed Consent: understands Reason for continued inpatient stay Substantial Risk for: stable for discharge Time Spent With Patient Time: Total time managing care of this patient today ____ minutes.
[2024-04-28] MEDS: Escitalopram Oxalate 20 MG TABLET PO (09:19)
[2024-04-28] MEDS: Baclofen 10 MG TABLET PO ×2 (09:19→21:05)
[2024-04-28] MEDS: Folic Acid 1 MG TABLET PO (09:19)
[2024-04-28] MEDS: Thiamine HCL 100 MG TABLET PO (09:19)
[2024-04-28] MEDS: Multivitamin TABLET 1 TAB PO (09:19)
[2024-04-28] MEDS: busPIRone HCl 10 MG TABLET PO ×2 (09:19→21:05)
[2024-04-28 20:00] VITALS: BP 123/53; PULSE 78; RESP 16; TEMP 36.4; O2SAT 98
[2024-04-28] MEDS: traZODone HCL 50 MG TABLET PO (21:05)
[2024-04-28] MEDS: HaloperidoL 5 MG TABLET 10 MG PO (21:05)
[2024-04-28] MEDS: hydrOXYzine HCL 25 MG TABLET PO (21:07)
[2024-04-29 07:00] VITALS: BMI 27.2
[2024-04-29] MEDS: Escitalopram Oxalate 20 MG TABLET PO (08:49)
[2024-04-29] MEDS: busPIRone HCl 10 MG TABLET PO ×2 (08:49→20:55)
[2024-04-29] MEDS: Baclofen 10 MG TABLET PO ×2 (08:49→20:52)
[2024-04-29] MEDS: Thiamine HCL 100 MG TABLET PO (08:49)
[2024-04-29] MEDS: Multivitamin TABLET 1 TAB PO (08:49)
[2024-04-29] MEDS: Folic Acid 1 MG TABLET PO (08:49)
[2024-04-29 08:51] VITALS: BP 113/61; PULSE 60; RESP 16; TEMP 36.3; O2SAT 97
--- NOTE | 2024-04-29 13:18 | HO.PSYCHPN ---
Subjective Subjective Date of Service: 04/29/24 Reason For Visit: Cocaine use disorder, depression with psychosis Subjective Notes: Conditional Voluntary Interim History: Reviewed with Dr. Tripathi. Active on unit. Pt reports feeling good today; pt stated, I have a phone intake with the [facility] today so I'm hoping I can get into there . Pt reports sleeping well last night. denies SI/HI/VH/AH. denies any issues at this time. Medication Compliance: Yes Side effects from medications: No Review of Systems Constitutional: Reports as per HPI Eyes: Reports as per HPI Reports as per HPI Cardiovascular: Reports as per HPI Respiratory: Reports as per HPI Gastrointestinal: Reports as per HPI Genitourinary: Reports as per HPI Musculoskeletal: Reports as per HPI Skin/Breast: Reports as per HPI Reports as per HPI Psychiatric: Reports as per HPI Endocrine: Reports as per HPI Hematologic/Lymphatic: Reports as per HPI Allergic/Immunologic: Reports as per HPI Mental Status Exam Mental Status Exam Narrative: Pt is alert and oriented; behavior is cooperative and calm; dressed in casual attire; mood is described as good ; eye contact appropriate; Speech is normal rate, volume and not pressured; thought process is organized and goal directed; Thought content is on discharge; denies SI/HI/VH/AH. Diagnostics Vital Signs (24Hr): Vital Signs - 24 hr 04/28/24 20:00 04/29/24 08:51 Temperature 97.5 F 97.3 F Pulse Rate 78 60 Respiratory Rate 16 16 Blood Pressure 123/53 L 113/61 Pulse Oximetry 98 97 Oxygen Delivery Method Room Air Room Air BMI result Body Mass Index 25.2 Labs 04/19/24 00:19 04/19/24 00:19 Medications Medications Current Medications Acetaminophen (Acetaminophen 325 Mg Tablet) 650 mg PO Q6H PRN PRN Reason: Headache/Pain Mild Scale (1-3) Al Hydroxide/Mg Hydroxide (Magnesium Hydrox/Alum Hydrox 30 Ml Oral.Susp) 30 ml PO Q6H PRN PRN Reason: Heartburn/Nausea Baclofen (Baclofen 10 Mg Tablet) 10 mg PO BID [facility] Last Admin: 04/29/24 08:49 Dose: 10 mg Buspirone HCl (Buspirone Hcl 10 Mg Tablet) 10 mg PO BID [facility] Last Admin: 04/29/24 08:49 Dose: 10 mg Clonidine HCl (Clonidine Hcl 0.1 Mg Tablet) 0.1 mg PO BID PRN; Protocol PRN Reason: anxiety Last Admin: 04/27/24 21:27 Dose: 0.1 mg Escitalopram Oxalate (Escitalopram Oxalate 20 Mg Tablet) 20 mg PO DAILY [facility] Last Admin: 04/29/24 08:49 Dose: 20 mg Folic Acid (Folic Acid 1 Mg Tablet) 1 mg PO DAILY [facility] Last Admin: 04/29/24 08:49 Dose: 1 mg Haloperidol (Haloperidol 5 Mg Tablet) 10 mg PO BEDTIME [facility] Last Admin: 04/28/24 21:05 Dose: 10 mg Hydroxyzine HCl (Hydroxyzine Hcl 25 Mg Tablet) 25 mg PO Q6H PRN PRN Reason: Anxiety Last Admin: 04/28/24 21:07 Dose: 25 mg Magnesium Hydroxide (Milk Of Magnesia 30 Ml Oral.Susp) 30 ml PO DAILY PRN PRN Reason: Constipation Multivitamins/Vitamin C (Multivitamin Tablet) 1 tab PO DAILY [facility] Last Admin: 04/29/24 08:49 Dose: 1 tab Nicotine (Nicotine 21 Mg Patch.Td24) 21 mg TRANSDERMA DAILY PRN PRN Reason: nicotine cravings Nicotine Polacrilex (Nicotine Polacrilex 2 Mg Gum) 4 mg BUCCAL Q2H PRN PRN Reason: Nicotine Cravings Thiamine HCl (Thiamine Hcl 100 Mg Tablet) 100 mg PO DAILY [facility] Last Admin: 04/29/24 08:49 Dose: 100 mg Trazodone HCl (Trazodone Hcl 50 Mg Tablet) 50 mg PO BEDTIME [facility] Last Admin: 04/28/24 21:05 Dose: 50 mg Allergies Allergies Allergy/AdvReac Type Severity Reaction Status Date / Time No Known Allergies Allergy Verified 04/18/24 23:53 [No Known Allergies*] Assessment & Plan Assessment & Plan (1) Schizoaffective disorder, depressive type: Status: Acute Code(s): F25.1 - Schizoaffective disorder, depressive type (2) PTSD (post-traumatic stress disorder): Status: Acute Code(s): F43.10 - Post-traumatic stress disorder, unspecified (3) Cocaine use disorder: Status: Acute Code(s): F14.10 - Cocaine abuse, uncomplicated (4) Homeless: Status: Acute Code(s): Z59.00 - Homelessness unspecified (5) HTN (hypertension): Qualifiers: Hypertension type: primary hypertension Qualified Code(s): I10 - Essential (primary) hypertension Status: Acute Code(s): I10 - Essential (primary) hypertension Plan Patient is a 33-year-old male with history of schizophrenia/schizoaffective disorder, PTSD, crack cocaine use disorder, who presents for worsening depression, psychosis in the face of relapse and going off psychiatric medications. Patient reports that when he discharged from [facility] this past October, he was feeling better, no AVH and continue taking his meds for few months and remain sober. He eventually relapsed and then stopped taking medications. Since then he was psychiatrically admitted to [facility] this past spring and then [facility] this past February/March. Since then he has been taking his medications on and off but continued to struggle with cocaine addiction, using daily and patient's depression anxiety significantly increased along with auditory hallucinations of voices mumbling and VH of seeing shadows. Over the past couple weeks he lost his housing and has been homeless, staying at a friend's house but can not go back. Patient said he came to the hospital because of his significant depression and psychotic symptoms and wants to stop using. Denies other substance abuse; denies manic episodes separate from substance use; ongoing flashbacks to traumatic memories Clinical reason/formulation Patient has psychotic illness exacerbated by crack cocaine use and PTSD. He was recently at [facility] and was continued on the same meds however at higher Haldol dose. Patient wants to restart with this med regimen now. Patient currently homeless. Says that his mother may let him live with her in [place] -patient hypertensive; will discuss medication management for this Hospital course: 04/26 pt reports he is good and that depression is gone; denies any AVH. Feels Medications working well. He is eating and sleeping well. Pt very much wants to attend program to help w/ sobriety 04/27 Patient continues to report doing well, good mood, no AH, eating and sleeping well. Remains focused on getting into a program to help with sobriety. Continue current treatment regimen 04/28 doing well; good mood; meds working well. -QTc 411 pt remains in good behavioral and impulse control and appropriate with peers and staff Pt is stable on current medication regimen. 04/29: continue current tx plan. Pt anxious about phone intake with [facility] today. Plan: CV Q 15 minute checks Haldol 10 mg q.h.s. BuSpar 10 mg b.i.d. Lexapro 20 mg daily Clonidine p.r.n. Patient educated on: diagnosis, medication risk/benefits and therapeutic strategies Reason for continued inpatient stay Substantial Risk for: med/psych decompensation Time Spent With Patient Time: Total time managing care of this patient today __20__ minutes.
[2024-04-29] MEDS: Acetaminophen 325 MG TABLET 650 MG PO (15:23)
[2024-04-29 20:00] VITALS: BP 131/71; PULSE 77; RESP 16; TEMP 36.5; O2SAT 99
[2024-04-29] MEDS: HaloperidoL 5 MG TABLET 10 MG PO (20:51)
[2024-04-29] MEDS: traZODone HCL 50 MG TABLET PO (20:54)
[2024-04-29 20:55] VITALS: BP 131/71
[2024-04-29] MEDS: cloNIDine HCL 0.1 MG TABLET PO (20:55)
[2024-04-30 08:00] VITALS: BP 113/66; PULSE 65; RESP 16; TEMP 36.6; O2SAT 98
[2024-04-30] MEDS: busPIRone HCl 10 MG TABLET PO ×2 (08:40→21:35)
[2024-04-30] MEDS: Escitalopram Oxalate 20 MG TABLET PO (08:40)
[2024-04-30] MEDS: Folic Acid 1 MG TABLET PO (08:40)
[2024-04-30] MEDS: Multivitamin TABLET 1 TAB PO (08:40)
[2024-04-30] MEDS: Baclofen 10 MG TABLET PO ×2 (08:40→21:35)
[2024-04-30] MEDS: Thiamine HCL 100 MG TABLET PO (08:40)
--- NOTE | 2024-04-30 10:00 | P.PNPSI_ITS ---
Subjective Subjective Date of Service: 04/30/24 Reason For Visit: Cocaine use disorder, depression with psychosis Interim History: met with patient; discussed with team pt reports good mood, doing well; eating and sleeping well. Discussed feeling anxiety on the unit due to acuity and he's been working on coping skills which is helping and using Prn's. Grateful to getting into a program and waiting for a bed. Pt remains in good behavioral control, engaged in treatment. Mental Status Exam Mental Status Exam Narrative: Pt is alert and oriented; behavior is cooperative, friendly and calm; patient is not in distress; dressed in casual attire with scarf on head; mood is described as good and affect congruent; eye contact appropriate; Speech is normal rate, volume and prosody and not pressured; no psychomotor agitation/retardation present; thought process is organized and goal directed; Thought content is on tx; otherwise pertinent to relevant topics and without any delusional content, paranoid ideations or grandiosity; denies any SI/HI. Denies AVH.. Patients insight and judgment are fair. Diagnostics Vital Signs (24Hr): Vital Signs - 24 hr 04/29/24 20:00 04/29/24 20:55 04/30/24 08:00 Temperature 97.7 F 98 F Pulse Rate 77 65 Respiratory Rate 16 16 Blood Pressure 131/71 131/71 113/66 Pulse Oximetry 99 98 Oxygen Delivery Method Room Air Room Air BMI result Body Mass Index 27.2 Labs 04/19/24 00:19 04/19/24 00:19 Medications Medications Current Medications Acetaminophen (Acetaminophen 325 Mg Tablet) 650 mg PO Q6H PRN PRN Reason: Headache/Pain Mild Scale (1-3) Last Admin: 04/29/24 15:23 Dose: 650 mg Al Hydroxide/Mg Hydroxide (Magnesium Hydrox/Alum Hydrox 30 Ml Oral.Susp) 30 ml PO Q6H PRN PRN Reason: Heartburn/Nausea Baclofen (Baclofen 10 Mg Tablet) 10 mg PO BID [facility] Last Admin: 04/30/24 08:40 Dose: 10 mg Buspirone HCl (Buspirone Hcl 10 Mg Tablet) 10 mg PO BID [facility] Last Admin: 04/30/24 08:40 Dose: 10 mg Clonidine HCl (Clonidine Hcl 0.1 Mg Tablet) 0.1 mg PO BID PRN; Protocol PRN Reason: anxiety Last Admin: 04/29/24 20:55 Dose: 0.1 mg Escitalopram Oxalate (Escitalopram Oxalate 20 Mg Tablet) 20 mg PO DAILY [facility] Last Admin: 04/30/24 08:40 Dose: 20 mg Folic Acid (Folic Acid 1 Mg Tablet) 1 mg PO DAILY [facility] Last Admin: 04/30/24 08:40 Dose: 1 mg Haloperidol (Haloperidol 5 Mg Tablet) 10 mg PO BEDTIME [facility] Last Admin: 04/29/24 20:51 Dose: 10 mg Hydroxyzine HCl (Hydroxyzine Hcl 25 Mg Tablet) 25 mg PO Q6H PRN PRN Reason: Anxiety Last Admin: 04/28/24 21:07 Dose: 25 mg Magnesium Hydroxide (Milk Of Magnesia 30 Ml Oral.Susp) 30 ml PO DAILY PRN PRN Reason: Constipation Multivitamins/Vitamin C (Multivitamin Tablet) 1 tab PO DAILY [facility] Last Admin: 04/30/24 08:40 Dose: 1 tab Nicotine (Nicotine 21 Mg Patch.Td24) 21 mg TRANSDERMA DAILY PRN PRN Reason: nicotine cravings Nicotine Polacrilex (Nicotine Polacrilex 2 Mg Gum) 4 mg BUCCAL Q2H PRN PRN Reason: Nicotine Cravings Thiamine HCl (Thiamine Hcl 100 Mg Tablet) 100 mg PO DAILY [facility] Last Admin: 04/30/24 08:40 Dose: 100 mg Trazodone HCl (Trazodone Hcl 50 Mg Tablet) 50 mg PO BEDTIME [facility] Last Admin: 04/29/24 20:54 Dose: 50 mg Allergies Allergies Allergy/AdvReac Type Severity Reaction Status Date / Time No Known Allergies Allergy Verified 04/18/24 23:53 [No Known Allergies*] Assessment & Plan Assessment & Plan (1) Schizoaffective disorder, depressive type: Status: Acute Code(s): F25.1 - Schizoaffective disorder, depressive type (2) PTSD (post-traumatic stress disorder): Status: Acute Code(s): F43.10 - Post-traumatic stress disorder, unspecified (3) Cocaine use disorder: Status: Acute Code(s): F14.10 - Cocaine abuse, uncomplicated (4) Homeless: Status: Acute Code(s): Z59.00 - Homelessness unspecified (5) HTN (hypertension): Qualifiers: Hypertension type: primary hypertension Qualified Code(s): I10 - Essential (primary) hypertension Status: Acute Code(s): I10 - Essential (primary) hypertension Plan Patient is a 33-year-old male with history of schizophrenia/schizoaffective disorder, PTSD, crack cocaine use disorder, who presents for worsening depression, psychosis in the face of relapse and going off psychiatric medications. Patient reports that when he discharged from [facility] this past October, he was feeling better, no AVH and continue taking his meds for few months and remain sober. He eventually relapsed and then stopped taking medications. Since then he was psychiatrically admitted to [facility] this past spring and then [facility] this past February/March. Since then he has been taking his medications on and off but continued to struggle with cocaine addiction, using daily and patient's depression anxiety significantly increased along with auditory hallucinations of voices mumbling and VH of seeing shadows. Over the past couple weeks he lost his housing and has been homeless, staying at a friend's house but can not go back. Patient said he came to the hospital because of his significant depression and psychotic symptoms and wants to stop using. Denies other substance abuse; denies manic episodes separate from substance use; ongoing flashbacks to traumatic memories Clinical reason/formulation Patient has psychotic illness exacerbated by crack cocaine use and PTSD. He was recently at [facility] and was continued on the same meds however at higher Haldol dose. Patient wants to restart with this med regimen now. Patient currently homeless. Says that his mother may let him live with her in [place] -patient hypertensive; will discuss medication management for this Hospital course: 04/26 pt reports he is good and that depression is gone; denies any AVH. Feels Medications working well. He is eating and sleeping well. Pt very much wants to attend program to help w/ sobriety 04/27 Patient continues to report doing well, good mood, no AH, eating and sleeping well. Remains focused on getting into a program to help with sobriety. Continue current treatment regimen 04/28 doing well; good mood; meds working well. -QTc 411 04/29: continue current tx plan. Pt anxious about phone intake with [facility] today. 04/30 pt reports good mood, doing well; eating and sleeping well. Discussed feeling anxiety on the unit due to acuity and he's been working on coping skills which is helping and using Prn's. pt remains in good behavioral and impulse control and appropriate with peers and staff Pt is stable on current medication regimen. Plan: CV Q 15 minute checks Haldol 10 mg q.h.s. BuSpar 10 mg b.i.d. Lexapro 20 mg daily Clonidine p.r.n. Patient educated on: diagnosis, medication risk/benefits, substance abuse and therapeutic strategies Informed Consent: understands Reason for continued inpatient stay Substantial Risk for: stable for discharge Time Spent With Patient Time: Total time managing care of this patient today ____ minutes.
[2024-04-30] MEDS: Acetaminophen 325 MG TABLET 650 MG PO (17:00)
[2024-04-30 20:00] VITALS: BP 125/70; PULSE 67; RESP 18; TEMP 36.4; O2SAT 98
[2024-04-30] MEDS: cloNIDine HCL 0.1 MG TABLET PO (21:35)
[2024-04-30] MEDS: hydrOXYzine HCL 25 MG TABLET PO (21:35)
[2024-04-30] MEDS: traZODone HCL 50 MG TABLET PO (21:35)
[2024-04-30] MEDS: HaloperidoL 5 MG TABLET 10 MG PO (21:36)
[2024-05-01 08:00] VITALS: BP 99/55; PULSE 60; RESP 17; TEMP 36.4; O2SAT 98
[2024-05-01] MEDS: Baclofen 10 MG TABLET PO ×2 (09:24→20:44)
[2024-05-01] MEDS: Thiamine HCL 100 MG TABLET PO (09:24)
[2024-05-01] MEDS: Escitalopram Oxalate 20 MG TABLET PO (09:24)
[2024-05-01] MEDS: Multivitamin TABLET 1 TAB PO (09:24)
[2024-05-01] MEDS: busPIRone HCl 10 MG TABLET PO ×2 (09:24→20:43)
[2024-05-01] MEDS: Folic Acid 1 MG TABLET PO (09:24)
--- NOTE | 2024-05-01 11:00 | P.PNPSI_ITS ---
Subjective Subjective Date of Service: 05/01/24 Reason For Visit: Cocaine use disorder, depression with psychosis Interim History: met with patient; discussed with team My anxiety is low, my depression is low. I'm feeling better. pt reports good mood, doing well; eating and sleeping well.. Grateful to getting into a program and waiting for a bed. Pt remains in good behavioral control, engaged in treatment. Review of Systems Review of Systems Yes all other systems are reviewed and are negative (denies) Constitutional: Reports as per HPI Eyes: Reports as per HPI Reports as per HPI Cardiovascular: Reports as per HPI Respiratory: Reports as per HPI Gastrointestinal: Reports as per HPI Genitourinary: Reports as per HPI Musculoskeletal: Reports as per HPI Skin/Breast: Reports as per HPI Reports as per HPI Psychiatric: Reports as per HPI Endocrine: Reports as per HPI Hematologic/Lymphatic: Reports as per HPI Allergic/Immunologic: Reports as per HPI Mental Status Exam Mental Status Exam Narrative: Pt is alert and oriented; behavior is cooperative, friendly and calm; patient is not in distress; dressed in casual attire with scarf on head; mood is described as good and affect congruent; eye contact appropriate; Speech is normal rate, volume and prosody and not pressured; no psychomotor agitation/retardation present; thought process is organized and goal directed; Thought content is on tx; otherwise pertinent to relevant topics and without any delusional content, paranoid ideations or grandiosity; denies any SI/HI. Denies AVH.. Patients insight and judgment are fair. Patient Appearance: Appropriate Patient Orientation: Person, Place, Time and Situation Level of Consciousness: Alert Patient Behavior: Appropriate, Talkative, Cooperative and Good Eye Contact Mood Description: Calm Affect Description: Calm Patient Cognition Impaired: No Ability to Follow Directions: Good Speech Pattern: Spontaneous Speech Diagnostics Vital Signs (24Hr): Vital Signs - 24 hr 04/30/24 20:00 05/01/24 08:00 Temperature 97.6 F 97.5 F Pulse Rate 67 60 Respiratory Rate 18 17 Blood Pressure 125/70 99/55 L Pulse Oximetry 98 98 Oxygen Delivery Method Room Air Room Air BMI result Body Mass Index 27.2 Labs 04/19/24 00:19 04/19/24 00:19 Medications Medications Current Medications Acetaminophen (Acetaminophen 325 Mg Tablet) 650 mg PO Q6H PRN PRN Reason: Headache/Pain Mild Scale (1-3) Last Admin: 04/30/24 17:00 Dose: 650 mg Al Hydroxide/Mg Hydroxide (Magnesium Hydrox/Alum Hydrox 30 Ml Oral.Susp) 30 ml PO Q6H PRN PRN Reason: Heartburn/Nausea Baclofen (Baclofen 10 Mg Tablet) 10 mg PO BID [facility] Last Admin: 05/01/24 09:24 Dose: 10 mg Buspirone HCl (Buspirone Hcl 10 Mg Tablet) 10 mg PO BID [facility] Last Admin: 05/01/24 09:24 Dose: 10 mg Clonidine HCl (Clonidine Hcl 0.1 Mg Tablet) 0.1 mg PO BID PRN; Protocol PRN Reason: anxiety Last Admin: 04/30/24 21:35 Dose: 0.1 mg Escitalopram Oxalate (Escitalopram Oxalate 20 Mg Tablet) 20 mg PO DAILY [facility] Last Admin: 05/01/24 09:24 Dose: 20 mg Folic Acid (Folic Acid 1 Mg Tablet) 1 mg PO DAILY [facility] Last Admin: 05/01/24 09:24 Dose: 1 mg Haloperidol (Haloperidol 5 Mg Tablet) 10 mg PO BEDTIME [facility] Last Admin: 04/30/24 21:36 Dose: 10 mg Hydroxyzine HCl (Hydroxyzine Hcl 25 Mg Tablet) 25 mg PO Q6H PRN PRN Reason: Anxiety Last Admin: 04/30/24 21:35 Dose: 25 mg Magnesium Hydroxide (Milk Of Magnesia 30 Ml Oral.Susp) 30 ml PO DAILY PRN PRN Reason: Constipation Multivitamins/Vitamin C (Multivitamin Tablet) 1 tab PO DAILY [facility] Last Admin: 05/01/24 09:24 Dose: 1 tab Nicotine (Nicotine 21 Mg Patch.Td24) 21 mg TRANSDERMA DAILY PRN PRN Reason: nicotine cravings Nicotine Polacrilex (Nicotine Polacrilex 2 Mg Gum) 4 mg BUCCAL Q2H PRN PRN Reason: Nicotine Cravings Thiamine HCl (Thiamine Hcl 100 Mg Tablet) 100 mg PO DAILY [facility] Last Admin: 05/01/24 09:24 Dose: 100 mg Trazodone HCl (Trazodone Hcl 50 Mg Tablet) 50 mg PO BEDTIME [facility] Last Admin: 04/30/24 21:35 Dose: 50 mg Allergies Allergies Allergy/AdvReac Type Severity Reaction Status Date / Time No Known Allergies Allergy Verified 04/18/24 23:53 [No Known Allergies*] Assessment & Plan Assessment & Plan (1) Schizoaffective disorder, depressive type: Status: Acute Code(s): F25.1 - Schizoaffective disorder, depressive type (2) PTSD (post-traumatic stress disorder): Status: Acute Code(s): F43.10 - Post-traumatic stress disorder, unspecified (3) Cocaine use disorder: Status: Acute Code(s): F14.10 - Cocaine abuse, uncomplicated (4) Homeless: Status: Acute Code(s): Z59.00 - Homelessness unspecified (5) HTN (hypertension): Qualifiers: Hypertension type: primary hypertension Qualified Code(s): I10 - Essential (primary) hypertension Status: Acute Code(s): I10 - Essential (primary) hypertension Plan Patient is a 33-year-old male with history of schizophrenia/schizoaffective disorder, PTSD, crack cocaine use disorder, who presents for worsening depression, psychosis in the face of relapse and going off psychiatric medications. Patient reports that when he discharged from [facility] this past October, he was feeling better, no AVH and continue taking his meds for few months and remain sober. He eventually relapsed and then stopped taking medications. Since then he was psychiatrically admitted to [facility] this past spring and then [facility] this past February/March. Since then he has been taking his medications on and off but continued to struggle with cocaine addiction, using daily and patient's depression anxiety significantly increased along with auditory hallucinations of voices mumbling and VH of seeing shadows. Over the past couple weeks he lost his housing and has been homeless, staying at a friend's house but can not go back. Patient said he came to the hospital because of his significant depression and psychotic symptoms and wants to stop using. Denies other substance abuse; denies manic episodes separate from substance use; ongoing flashbacks to traumatic memories Clinical reason/formulation Patient has psychotic illness exacerbated by crack cocaine use and PTSD. He was recently at [facility] and was continued on the same meds however at higher Haldol dose. Patient wants to restart with this med regimen now. Patient currently homeless. Says that his mother may let him live with her in [place] -patient hypertensive; will discuss medication management for this Hospital course: 04/26 pt reports he is good and that depression is gone; denies any AVH. Feels Medications working well. He is eating and sleeping well. Pt very much wants to attend program to help w/ sobriety 04/27 Patient continues to report doing well, good mood, no AH, eating and sleeping well. Remains focused on getting into a program to help with sobriety. Continue current treatment regimen 04/28 doing well; good mood; meds working well. -QTc 411 04/29: continue current tx plan. Pt anxious about phone intake with [facility] today. 04/30 pt reports good mood, doing well; eating and sleeping well. Discussed feeling anxiety on the unit due to acuity and he's been working on coping skills which is helping and using Prn's. pt remains in good behavioral and impulse control and appropriate with peers and staff Pt is stable on current medication regimen. 05/01: Continue current management and treatment plan. Plan: CV Q 15 minute checks Haldol 10 mg q.h.s. BuSpar 10 mg b.i.d. Lexapro 20 mg daily Clonidine p.r.n. Reason for continued inpatient stay Substantial Risk for: inability to function and rapid decompensation Time Spent With Patient Time: Total time managing care of this patient today ____ minutes.
[2024-05-01 19:10] VITALS: BP 120/70
[2024-05-01] MEDS: cloNIDine HCL 0.1 MG TABLET PO (19:10)
[2024-05-01] MEDS: hydrOXYzine HCL 25 MG TABLET PO (19:10)
[2024-05-01 20:00] VITALS: BP 124/65; PULSE 70; TEMP 36.7; O2SAT 98
[2024-05-01] MEDS: HaloperidoL 5 MG TABLET 10 MG PO (20:44)
[2024-05-01] MEDS: traZODone HCL 50 MG TABLET PO (20:44)
[2024-05-02 07:58] VITALS: BP 108/60; PULSE 62; RESP 17; O2SAT 97
[2024-05-02] MEDS: Folic Acid 1 MG TABLET PO (08:32)
[2024-05-02] MEDS: Thiamine HCL 100 MG TABLET PO (08:32)
[2024-05-02] MEDS: Escitalopram Oxalate 20 MG TABLET PO (08:32)
[2024-05-02] MEDS: Multivitamin TABLET 1 TAB PO (08:32)
[2024-05-02] MEDS: Baclofen 10 MG TABLET PO ×2 (08:32→21:48)
[2024-05-02] MEDS: busPIRone HCl 10 MG TABLET PO ×2 (08:32→21:48)
--- NOTE | 2024-05-02 11:29 | P.PNPSI_ITS ---
Subjective Subjective Date of Service: 05/02/24 Reason For Visit: Cocaine use disorder, depression with psychosis Interim History: met with patient; discussed with team Remains stable and describes his mood and anxiety as being low and he feels stable. Reports doing well; eating and sleeping well. Awaiting waiting for a bed in a program. Pt remains in good behavioral control, engaged in treatment. Review of Systems Review of Systems Yes all other systems are reviewed and are negative (denies) Constitutional: Reports as per HPI Eyes: Reports as per HPI Reports as per HPI Cardiovascular: Reports as per HPI Respiratory: Reports as per HPI Gastrointestinal: Reports as per HPI Genitourinary: Reports as per HPI Musculoskeletal: Reports as per HPI Skin/Breast: Reports as per HPI Reports as per HPI Psychiatric: Reports as per HPI Endocrine: Reports as per HPI Hematologic/Lymphatic: Reports as per HPI Allergic/Immunologic: Reports as per HPI Mental Status Exam Mental Status Exam Narrative: Pt is alert and oriented; behavior is cooperative, friendly and calm; patient is not in distress; dressed in casual attire with scarf on head; mood is described as good and affect congruent; eye contact appropriate; Speech is normal rate, volume and prosody and not pressured; no psychomotor agitation/retardation present; thought process is organized and goal directed; Thought content is on tx; otherwise pertinent to relevant topics and without any delusional content, paranoid ideations or grandiosity; denies any SI/HI. Denies AVH.. Patients insight and judgment are fair. Patient Appearance: Appropriate Patient Orientation: Person, Place, Time and Situation Level of Consciousness: Alert Patient Behavior: Appropriate, Talkative, Cooperative and Good Eye Contact Mood Description: Calm Affect Description: Calm Patient Cognition Impaired: No Ability to Follow Directions: Good Speech Pattern: Spontaneous Speech Diagnostics Vital Signs (24Hr): Vital Signs - 24 hr 05/01/24 19:10 05/01/24 20:00 05/02/24 07:58 Temperature 98.0 F Pulse Rate 70 62 Respiratory Rate 17 Blood Pressure 120/70 124/65 108/60 Pulse Oximetry 98 97 Oxygen Delivery Method Room Air Room Air BMI result Body Mass Index 27.2 Labs 04/19/24 00:19 04/19/24 00:19 Medications Medications Current Medications Acetaminophen (Acetaminophen 325 Mg Tablet) 650 mg PO Q6H PRN PRN Reason: Headache/Pain Mild Scale (1-3) Last Admin: 04/30/24 17:00 Dose: 650 mg Al Hydroxide/Mg Hydroxide (Magnesium Hydrox/Alum Hydrox 30 Ml Oral.Susp) 30 ml PO Q6H PRN PRN Reason: Heartburn/Nausea Baclofen (Baclofen 10 Mg Tablet) 10 mg PO BID [facility] Last Admin: 05/02/24 08:32 Dose: 10 mg Buspirone HCl (Buspirone Hcl 10 Mg Tablet) 10 mg PO BID [facility] Last Admin: 05/02/24 08:32 Dose: 10 mg Clonidine HCl (Clonidine Hcl 0.1 Mg Tablet) 0.1 mg PO BID PRN; Protocol PRN Reason: anxiety Last Admin: 05/01/24 19:10 Dose: 0.1 mg Escitalopram Oxalate (Escitalopram Oxalate 20 Mg Tablet) 20 mg PO DAILY [facility] Last Admin: 05/02/24 08:32 Dose: 20 mg Folic Acid (Folic Acid 1 Mg Tablet) 1 mg PO DAILY [facility] Last Admin: 05/02/24 08:32 Dose: 1 mg Haloperidol (Haloperidol 5 Mg Tablet) 10 mg PO BEDTIME [facility] Last Admin: 05/01/24 20:44 Dose: 10 mg Hydroxyzine HCl (Hydroxyzine Hcl 25 Mg Tablet) 25 mg PO Q6H PRN PRN Reason: Anxiety Last Admin: 05/01/24 19:10 Dose: 25 mg Magnesium Hydroxide (Milk Of Magnesia 30 Ml Oral.Susp) 30 ml PO DAILY PRN PRN Reason: Constipation Multivitamins/Vitamin C (Multivitamin Tablet) 1 tab PO DAILY [facility] Last Admin: 05/02/24 08:32 Dose: 1 tab Nicotine (Nicotine 21 Mg Patch.Td24) 21 mg TRANSDERMA DAILY PRN PRN Reason: nicotine cravings Nicotine Polacrilex (Nicotine Polacrilex 2 Mg Gum) 4 mg BUCCAL Q2H PRN PRN Reason: Nicotine Cravings Thiamine HCl (Thiamine Hcl 100 Mg Tablet) 100 mg PO DAILY [facility] Last Admin: 05/02/24 08:32 Dose: 100 mg Trazodone HCl (Trazodone Hcl 50 Mg Tablet) 50 mg PO BEDTIME [facility] Last Admin: 05/01/24 20:44 Dose: 50 mg Allergies Allergies Allergy/AdvReac Type Severity Reaction Status Date / Time No Known Allergies Allergy Verified 04/18/24 23:53 [No Known Allergies*] Assessment & Plan Assessment & Plan (1) Schizoaffective disorder, depressive type: Status: Acute Code(s): F25.1 - Schizoaffective disorder, depressive type (2) PTSD (post-traumatic stress disorder): Status: Acute Code(s): F43.10 - Post-traumatic stress disorder, unspecified (3) Cocaine use disorder: Status: Acute Code(s): F14.10 - Cocaine abuse, uncomplicated (4) Homeless: Status: Acute Code(s): Z59.00 - Homelessness unspecified (5) HTN (hypertension): Qualifiers: Hypertension type: primary hypertension Qualified Code(s): I10 - Essential (primary) hypertension Status: Acute Code(s): I10 - Essential (primary) hypertension Plan Patient is a 33-year-old male with history of schizophrenia/schizoaffective disorder, PTSD, crack cocaine use disorder, who presents for worsening depression, psychosis in the face of relapse and going off psychiatric medications. Patient reports that when he discharged from [facility] this past October, he was feeling better, no AVH and continue taking his meds for few months and remain sober. He eventually relapsed and then stopped taking medications. Since then he was psychiatrically admitted to [facility] this past spring and then [facility] this past February/March. Since then he has been taking his medications on and off but continued to struggle with cocaine addiction, using daily and patient's depression anxiety significantly increased along with auditory hallucinations of voices mumbling and VH of seeing shadows. Over the past couple weeks he lost his housing and has been homeless, staying at a friend's house but can not go back. Patient said he came to the hospital because of his significant depression and psychotic symptoms and wants to stop using. Denies other substance abuse; denies manic episodes separate from substance use; ongoing flashbacks to traumatic memories Clinical reason/formulation Patient has psychotic illness exacerbated by crack cocaine use and PTSD. He was recently at [facility] and was continued on the same meds however at higher Haldol dose. Patient wants to restart with this med regimen now. Patient currently homeless. Says that his mother may let him live with her in [place] -patient hypertensive; will discuss medication management for this Hospital course: 04/26 pt reports he is good and that depression is gone; denies any AVH. Feels Medications working well. He is eating and sleeping well. Pt very much wants to attend program to help w/ sobriety 04/27 Patient continues to report doing well, good mood, no AH, eating and sleeping well. Remains focused on getting into a program to help with sobriety. Continue current treatment regimen 04/28 doing well; good mood; meds working well. -QTc 411 04/29: continue current tx plan. Pt anxious about phone intake with [facility] today. 04/30 pt reports good mood, doing well; eating and sleeping well. Discussed feeling anxiety on the unit due to acuity and he's been working on coping skills which is helping and using Prn's. pt remains in good behavioral and impulse control and appropriate with peers and staff Pt is stable on current medication regimen. 05/01: Continue current management and treatment plan. 05/02: Continue current management and treatment plan. Plan: CV Q 15 minute checks Haldol 10 mg q.h.s. BuSpar 10 mg b.i.d. Lexapro 20 mg daily Clonidine p.r.n. Reason for continued inpatient stay Substantial Risk for: inability to function and rapid decompensation Time Spent With Patient Time: Total time managing care of this patient today ____ minutes.
[2024-05-02 18:01] VITALS: BP 125/75
[2024-05-02] MEDS: cloNIDine HCL 0.1 MG TABLET PO (18:01)
[2024-05-02] MEDS: hydrOXYzine HCL 25 MG TABLET PO (18:02)
[2024-05-02 20:00] VITALS: BP 136/72; PULSE 70; RESP 16; TEMP 36.4; O2SAT 98
[2024-05-02] MEDS: traZODone HCL 50 MG TABLET PO (21:48)
[2024-05-02] MEDS: HaloperidoL 5 MG TABLET 10 MG PO (21:48)
[2024-05-03 08:00] VITALS: BP 120/72; PULSE 63; RESP 16; TEMP 36.4; O2SAT 99
[2024-05-03] MEDS: Thiamine HCL 100 MG TABLET PO (08:49)
[2024-05-03] MEDS: Folic Acid 1 MG TABLET PO (08:49)
[2024-05-03] MEDS: Baclofen 10 MG TABLET PO (08:49)
[2024-05-03] MEDS: Multivitamin TABLET 1 TAB PO (08:49)
[2024-05-03] MEDS: busPIRone HCl 10 MG TABLET PO (08:49)
[2024-05-03] MEDS: Escitalopram Oxalate 20 MG TABLET PO (08:49)
--- NOTE | 2024-05-03 09:24 | P.DS_ITS ---
DS: Providers Provider Date of Service: 05/03/24 Date of admission: 04/21/24 12:16 Date of discharge: 05/03/24 Primary care physician: Mike Alfonso PA-C Attending physician on admission: Luan Ribeiro Attending physician on discharge: Luan Ribeiro DS: Diagnosis Discharge Diagnosis (1) Schizoaffective disorder, depressive type: Status: Acute (2) PTSD (post-traumatic stress disorder): Status: Acute (3) Cocaine use disorder: Status: Acute (4) Homeless: Status: Acute (5) HTN (hypertension): Status: Acute DS: Medications Discharge Medications Home Medications: Previous Rx's ?Medication ?Instructions ?Recorded buspirone 10 mg tablet 10 mg PO BID #60 tabs 10/07/23 baclofen 10 mg tablet 10 mg PO BID 30 days #60 tabs 05/03/24 clonidine HCl 0.1 mg tablet 0.1 mg PO BID PRN anxiety 30 days 05/03/24 #30 tabs escitalopram oxalate 20 mg tablet 20 mg PO DAILY 30 days #30 tabs 05/03/24 haloperidol 10 mg tablet 10 mg PO BEDTIME 30 days #30 tabs 05/03/24 hydroxyzine HCl 25 mg tablet 25 mg PO Q6H PRN Anxiety 30 days 05/03/24 #90 tabs trazodone 50 mg tablet 50 mg PO BEDTIME 30 days #30 tabs 05/03/24 Mental Status Exam Mental Status Exam Narrative: Pt is alert and oriented; behavior is cooperative, friendly and calm; patient is not in distress; dressed in casual attire with scarf on head; mood is described as good and affect congruent; eye contact appropriate; Speech is normal rate, volume and prosody and not pressured; no psychomotor agitation/retardation present; thought process is organized and goal directed; Thought content is on tx; otherwise pertinent to relevant topics and without any delusional content, paranoid ideations or grandiosity; denies any SI/HI. Denies AVH.. Patients insight and judgment are fair. DS: Summary Hospital Course Hospital Course: HPI: Patient is a 33-year-old male with history of schizophrenia/schizoaffective disorder, PTSD, crack cocaine use disorder, who presents for worsening depression, psychosis in the face of relapse and going off psychiatric medications. Patient reports that when he discharged from [facility] this past October, he was feeling better, no AVH and continue taking his meds for few months and remain sober. He eventually relapsed and then stopped taking medications. Since then he was psychiatrically admitted to [facility] this past spring and then [facility] this past . Since then he has been taking his medications on and off but continued to struggle with cocaine addiction, using daily and patient's depression anxiety significantly increased along with auditory hallucinations of voices mumbling and VH of seeing shadows. Over the past couple weeks he lost his housing and has been homeless, staying at a friend's house but can not go back. Patient said he came to the hospital because of his significant depression and psychotic symptoms and wants to stop using. Denies other substance abuse; denies manic episodes separate from substance use; ongoing flashbacks to traumatic memories Hospital course: Patient has psychotic illness exacerbated by crack cocaine use and PTSD. He was recently at [facility] and was continued on the same meds however at higher Haldol dose. Patient wants to restart with this med regimen now. -patient restarted on Home medications and patients soon resolved; AH resolved and mood significantly improved. BP's WNL and remained stable 04/26 pt reports he is good and that depression is gone; denies any AVH. Feels Medications working well. He is eating and sleeping well. Pt very much wants to attend program to help w/ sobriety 04/27 Patient continues to report doing well, good mood, no AH, eating and sleeping well. Remains focused on getting into a program to help with sobriety. Continue current treatment regimen 04/28 doing well; good mood; meds working well. -QTc 411 04/30 pt reports good mood, doing well; eating and sleeping well. Discussed feeling anxiety on the unit due to acuity and he's been working on coping skills which is helping and using Prn's. Throughout his stay, pt remains in good behavioral and impulse control and appropriate with peers and staff. He was engaged in treatment and attended groups. He was future oriented and excited that he got into a program; afterwards he will go to live with his mothers in [place] [facility]. Pt is discharging to a structured program. He is not in imminent risk for harm to self or others and appropriate to return to the community for treatment. Time spent discussing smoking cessation with patient: 3 to 10 minutes Status at Discharge Functional status at discharge: independent ambulation Overall status at discharge: patient is back to baseline Time Spent with Patient Time attestation: Total time managing care of this patient today _40___ minutes. Time spent: Greater than 30 minutes Specific discharge activities: met with patient; discussed with team; prescriptions, charting Discharge Plan Discharge Anticipated Discharge Date/Time: 05/03/24 11:50 Patient Disposition: Nursing Home Discharge Diagnosis: schizoaffective disorder, depressed type Referrals: Mike Alfonso PA-C [Primary Care Provider] - 1 Week Discharge Medications: New hydroxyzine HCl 25 mg Tablet 25 mg PO Q6H PRN (Reason: Anxiety) 30 Days Qty: 90 1RF Continued buspirone 10 mg Tablet 10 mg PO BID Qty: 60 0RF clonidine HCl 0.1 mg Tablet 0.1 mg PO BID PRN (Reason: anxiety) 30 Days Qty: 30 1RF Protocol: Hold for SBP< HOLD for SBP < : 90 trazodone 50 mg tablet 50 mg PO BEDTIME 30 Days Qty: 30 1RF baclofen 10 mg tablet 10 mg PO BID 30 Days Qty: 60 1RF haloperidol 10 mg tablet 10 mg PO BEDTIME 30 Days Qty: 30 1RF escitalopram oxalate 20 mg tablet 20 mg PO DAILY 30 Days Qty: 30 1RF Discontinued multivitamin [Daily-Jonathan] Tablet 1 tab PO DAILY Qty: 30 0RF folic acid 1 mg Tablet 1 mg PO DAILY Qty: 30 0RF thiamine mononitrate (vit B1) 100 mg Tablet 100 mg PO DAILY Qty: 3 0RF Discharge Orders: Discharge Order (Routine); Ordered 05/03/24 Ordered By: Luan Ribeiro Diet: Regular diet Activity on Discharge: As tolerated Stand Alone Forms: Patient Portal Discharge page Print Language: Urugu[place] Care Plan Goals: Maintain mood and safe behaviors Take medications as prescribed Continue to pursue sobriety Practice coping skills Continue with outpatient providers and reach out to them as needed Health Concerns: Mood stability and behaviors Sobriety Plan of Treatment: Follow up with your PCP, psychiatric provider and other outpatient providers regarding above concerns Take medications as prescribed Assessment: Risk assessment at time of discharge:? Patient was interviewed prior to discharge and found to be fully oriented and without any SI or HI. Patient has improved insight and judgment and wants to continue treatment. Patient is not in imminent risk of harm to self or others and has a safety plan that includes presenting to the closest ER or calling 911 if feeling unsafe.? Patient has been observed closely by nursing and unit staff throughout admission; patient has not engaged in any behaviors that suggest dangerousness to self or others and has demonstrated appropriate behaviors and impulse control
[2024-05-03] MEDS: Naloxone HCl Nasal TAKE HOME 4 MG SPRAY 8 MG NOSTRILALT (10:26)
== END 2024-05-03 11:16 | disposition home or self-care (01) | DRG 750 ==
LOC: HO.ED 04-19 07:03 → HO.PM5 04-21 12:19
PROVIDERS: Admitting Provider Clinical Nurse Specialist Psychiatric/Mental Health, Adult; Emergency Provider Internal Medicine; PCP Physician Assistant; Visit Provider Psychiatry & Neurology Psychiatry
DX: F25.1 Schizoaffective disorder, depressive type (principal); Z91.148 Patient's other noncompliance with medication regimen for other reason; F14.10 Cocaine abuse, uncomplicated; F43.10 Post-traumatic stress disorder, unspecified; F17.210 Nicotine dependence, cigarettes, uncomplicated; I10 Essential (primary) hypertension; Z71.6 Tobacco abuse counseling; Z23 Encounter for immunization; Z59.02 Unsheltered homelessness; Z79.899 Other long term (current) drug therapy
CPT/HCPCS: 36415; 80053; 80307; 81001; 85025; 90656; 93005; 99285; S9485

== ENCOUNTER → 2024-04-18 | Outpatient (BNV) | payer OTHER, SELFPAY | PROVIDERS: Emergency Provider Internal Medicine; PCP Physician Assistant; Visit Provider Internal Medicine | DX: I44.4 Left anterior fascicular block (principal); R94.31 Abnormal electrocardiogram [ECG] [EKG] | CPT/HCPCS: 93010 ==

== ENCOUNTER 2024-04-21 12:16 | Outpatient (BNV) | payer OTHER, SELFPAY | END 2024-04-28 09:39 | PROVIDERS: Admitting Provider Clinical Nurse Specialist Psychiatric/Mental Health, Adult; Emergency Provider Internal Medicine; PCP Physician Assistant; Visit Provider Internal Medicine Cardiovascular Disease | DX: R94.31 Abnormal electrocardiogram [ECG] [EKG] (principal); I44.4 Left anterior fascicular block | CPT/HCPCS: 93010 ==

== ENCOUNTER → 2024-04-21 12:16 | Outpatient (BNV) | payer OTHER, SELFPAY | PROVIDERS: Admitting Provider Clinical Nurse Specialist Psychiatric/Mental Health, Adult; Emergency Provider Internal Medicine; PCP Physician Assistant; Visit Provider Psychiatry & Neurology Psychiatry | DX: F25.1 Schizoaffective disorder, depressive type (principal); F14.10 Cocaine abuse, uncomplicated; F43.11 Post-traumatic stress disorder, acute; Z59.00 Homelessness unspecified | CPT/HCPCS: 90792; 99231; 99232; 99239 ==

== ENCOUNTER 2024-05-23 12:28 | Inpatient (IN) | payer OTHER, SELFPAY ==
[2024-05-23 12:39] VITALS: BP 125/82; PULSE 77; RESP 19; TEMP 36.6; O2SAT 99; BMI 28.7
--- NOTE | 2024-05-23 12:42 | ED.GENADULT ---
HPI - General Adult General Chief complaint: Psychiatric Symptoms Stated complaint: Psychosis, Depression Time Seen by Provider: 05/23/24 12:53 Source: patient and old records reviewed Mode of arrival: ambulatory Limitations: no limitations History of Present Illness ED Provider: RADHA MCNEIL narrative: 33 yo male with PMH of anxiety, substance abuse, PTSD, schizoaffective disorder here with c/o SI and depression not taking his medications. He notes he is hearing voices. He denies any medical issues or complaints. States he is living with a friend right now. MD complaint: SI Onset (ago): week(s) Severity: moderate Relieving factors: none Exacerbating factors: other Associated symptoms: denies other symptoms Treatments prior to arrival: none Related Data Previous Rx's ?Medication ?Instructions ?Recorded buspirone 10 mg tablet 10 mg PO BID #60 tabs 10/07/23 baclofen 10 mg tablet 10 mg PO BID 30 days #60 tabs 05/03/24 clonidine HCl 0.1 mg tablet 0.1 mg PO BID PRN anxiety 30 days 05/03/24 #30 tabs escitalopram oxalate 20 mg tablet 20 mg PO DAILY 30 days #30 tabs 05/03/24 haloperidol 10 mg tablet 10 mg PO BEDTIME 30 days #30 tabs 05/03/24 hydroxyzine HCl 25 mg tablet 25 mg PO Q6H PRN Anxiety 30 days 05/03/24 #90 tabs trazodone 50 mg tablet 50 mg PO BEDTIME 30 days #30 tabs 05/03/24 Allergies Allergy/AdvReac Type Severity Reaction Status Date / Time No Known Allergies Allergy Verified 05/23/24 12:40 [No Known Allergies*] Review of Systems Review of Systems: Constitutional : No Fever, No Chills ENT/Mouth : No Ear Pain, No Nasal Congestion, No sore throat Eyes: No Eye Pain, No Swelling, No Redness Cardiovascular : No Chest Pain, No SOB Respiratory : No Cough, No Sputum, No Dyspnea Gastrointestinal : No Nausea, No Vomiting, No Diarrhea, No Hematochezia, No Melena Genitourinary : No Dysuria, No Urinary Frequency, No Hematuria Musculoskeletal : No Myalgias Skin : No Skin Lesions, No rash Neuro : No Weakness, No Numbness, No Paresthesias, No Dizziness, No Headache Psych : positive Anxiety, positive Depression, positive SI no HI All other systems reviewed and are negative PMFSH Past Medical History Attestation statement: The following information was validated with the patient. Source: old records reviewed Medical History Homeless Cocaine use disorder Schizoaffective disorder, depressive type PTSD (post-traumatic stress disorder) Major depression Substance-induced psychotic disorder Psychiatric diagnosis Anxiety HTN (hypertension) Sore throat (viral) Surgical History H/O hernia repair Family History Family History Mother HTN (hypertension) Social History Social History Household Members: Friend(s) Housing: Apartment Do you presently have visiting nurse or other home services: No Unable to assess alcohol history related to: Refusing to respond Alcohol intake: current Alcohol intake frequency: holidays/special occasions only Alcohol type: wine Patient Tobacco Use Status: Current someday Tobacco user Tobacco use type: Cigarette e-Cigarette/Vaping Use: Never Used Second Hand Smoke Exposure: No Substance Use Type: Crack/Cocaine Advance Directives: No Advance Directives Information Provided: Yes Do you have a plan to hurt others: No Plan service: No Current occupational status: employed 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 Oriented X3. No acute distress. Eyes: Pupils equal, round and reactive to light. ENT: Pharynx normal. Neck: Normal inspection. Neck supple. CVS: Normal heart rate and rhythm. Pulses normal. Respiratory: No respiratory distress. Breath sounds normal. Abdomen: Soft and nontender. Skin: Skin warm and dry. Normal skin color. Normal skin turgor. Extremities: No lower extremity edema. No calf ttp Neuro: Oriented X 3. No motor deficit. No sensory deficit. CN2-12 intact Course Course Course Narrative: RME: 33 yold with past medical history of psych disorders presents to ED for suicidal thoughts, auditory hallucinations, and not feeling safe. Patient states has no support system or therapist. Labs images and care team consult placed. Medical Decision Making Medical Decision Making [facility] Narrative: 33 yo male with PMH of anxiety, substance abuse, PTSD, schizoaffective disorder here with c/o SI not taking his medications and poor social support at this time basic labs and CARE team consult Differential Diagnosis Differential Diagnoses: The differential diagnosis associated with the presentation includes depression, SI, non compliance with medications Admission/Observation Consideration of admission/observation: Escalation of care including admission/observation considered physician observation started at 1257pm Consult Healthcare Provider Management of the patient was discussed with: Behavioral Health Provider Lab Data [facility] Lab Attestation statement: I reviewed the patient's lab results. 05/23/24 12:49 05/23/24 12:49 Labs: Lab Results 05/23/24 05/23/24 Range/Units 12:49 13:02 WBC 5.9 (4.8-10.8) X10*3/uL RBC 5.15 (4.60-5.80) X10*6/uL Hgb 14.4 (14.0-18.0) g/dl Hct 43.1 (42.0-52.0) % MCV 83.7 (80.0-98.0) fL MCH 28.0 (27.0-33.0) pg MCHC 33.4 (31.0-36.0) g/dl RDW 14.6 (11.0-16.0) % Plt Count 190 D (160-400) X10*3/uL MPV 10.7 (9.4-12.4) fL Immature Gran % (Auto) 0.2 (0.0-0.4) % Neut % (Auto) 39.4 L (45-73) % Lymph % (Auto) 47.0 H (20-40) % [place] % (Auto) 10.3 (2-11) % Eos % (Auto) 2.4 (0-4) % Baso % (Auto) 0.7 (0-2) % Lymph # (Auto) 2.8 (1.2-4.9) X10*3/uL [place] # (Auto) 0.6 (0.1-1.2) X10*3/uL Eos # (Auto) 0.1 (0.0-0.4) X10*3/uL Baso # (Auto) 0.0 (0.0-0.2) X10*3/uL Abs Immat Gran (auto) 0.01 (0.00-0.03) X10*3/uL Absolute Neuts (auto) 2.3 (2.0-8.3) x10*3/uL Absolute Nucleated RBC 0.000 (0.0-0.012) X10*3/uL Nucleated RBC % (auto) 0.0 (0.0-0.2) /100WBC Sodium 141 (135-145) mmol/L Potassium 4.0 (3.3-5.1) mmol/L Chloride 106 (96-108) mmol/L Carbon Dioxide 28 (22-29) mmol/L Anion Gap 11 L (12-20) BUN 12 (9-16) mg/dL Creatinine 0.81 (0.5-1.4) mg/dL Estim Creat Clear Calc 144.1 Estimated GFR > 60 Random Glucose 81 (60-115) mg/dL Calcium 9.6 (8.4-10.2) mg/dL Total Bilirubin 0.5 (0.0-1.0) mg/dL AST 32 (5-37) U/L ALT 60 H (0-40) U/L Alkaline Phosphatase 56 (39-117) U/L Total Protein 7.8 (6.5-8.0) g/dL Albumin 4.3 (3.5-5.0) g/dL Urine Color Yellow Urine Appearance Clear Urine pH 5.5 (5.0-9.0) Ur Specific [place] 1.025 (1.005-1.025) Urine Protein Negative (Neg-Trace) mg/dL Urine Glucose (UA) Negative (Negative) mg/dL Urine Ketones Negative (Negative) mg/dL Urine Blood Negative (Negative) Urine Nitrite Negative (Negative) Ur Leukocyte Esterase Negative (Negative) Urine Opiates Screen Not Detected (Not Detect) Ur Buprenorphine Scrn Not Detected (Not Detect) ng/mL Ur Oxycodone Screen Not Detected (Not Detect) ng/mL Urine Methadone Screen Not Detected (Not Detect) ng/mL Urine Fentanyl Screen Not Detected (Not Detect) Ur Barbiturates Screen Not Detected (Not Detect) Ur Phencyclidine Scrn Not Detected (Not Detect) Ur Amphetamines Screen Not Detected (Not Detect) U Benzodiazepines Scrn Not Detected (Not Detect) Urine Cocaine Screen Not Detected (Not Detect) U Marijuana (THC) Screen Not Detected (Not Detect) Ethyl Alcohol < 10 mg/dL External Record Review External record reviewed: Inpatient record Social Determinants Patient?s care significantly limited by Social Determinants of Health including: Inadequate housing and Problems related to primary support group Discharge Plan Discharge Clinical Impression: Suicidal ideation Patient Disposition: Still a Patient Prescriptions: No Action buspirone 10 mg Tablet 10 mg PO BID Qty: 60 0RF hydroxyzine HCl 25 mg Tablet 25 mg PO Q6H PRN (Reason: Anxiety) 30 Days Qty: 90 1RF clonidine HCl 0.1 mg Tablet 0.1 mg PO BID PRN (Reason: anxiety) 30 Days Qty: 30 1RF Protocol: Hold for SBP< HOLD for SBP < : 90 trazodone 50 mg tablet 50 mg PO BEDTIME 30 Days Qty: 30 1RF baclofen 10 mg tablet 10 mg PO BID 30 Days Qty: 60 1RF haloperidol 10 mg tablet 10 mg PO BEDTIME 30 Days Qty: 30 1RF escitalopram oxalate 20 mg tablet 20 mg PO DAILY 30 Days Qty: 30 1RF Print Language: Kazakh
[2024-05-23 12:53] LABS: MANUAL DIFF FLAG NO
[2024-05-23 12:54] LABS: Basophils Percent Auto 0.7 % (0-2); Eosinophils Absolute Auto 0.1 X10*3/uL (0.0-0.4); Eosinophils Percent Auto 2.4 % (0-4); Hematocrit 43.1 % (42.0-52.0); Hemoglobin 14.4 g/dl (14.0-18.0); Imm Gran Abs Auto 0.01 X10*3/uL (0.00-0.03); Imm Gran Pct Auto 0.2 % (0.0-0.4); Lymphocytes Absolute Auto 2.8 X10*3/uL (1.2-4.9); Mean Corpuscular HGB Conc 33.4 g/dl (31.0-36.0); Mean Corpuscular Volume 83.7 fL (80.0-98.0); Mean Platelet Volume 10.7 fL (9.4-12.4); Monocytes Absolute Auto 0.6 X10*3/uL (0.1-1.2); Monocytes Percent Auto 10.3 % (2-11); Neutrophils Absolute Auto 2.3 x10*3/uL (2.0-8.3); Neutrophils Percent Auto 39.4 % (45-73); Platelet Count 190 X10*3/uL (160-400); Red Blood Count 5.15 X10*6/uL (4.60-5.80); Red Cell Distribution Width 14.6 % (11.0-16.0); White Blood Count 5.9 X10*3/uL (4.8-10.8)
[2024-05-23 13:08] LABS: Alanine Aminotransferase 60 U/L (0-40); Albumin Level 4.3 g/dL (3.5-5.0); Alkaline Phosphatase 56 U/L (39-117); Anion Gap 11 (12-20); Aspartate Amino Transferase 32 U/L (5-37); Bilirubin Total 0.5 mg/dL (0.0-1.0); Blood Urea Nitrogen 12 mg/dL (9-16); Calcium 9.6 mg/dL (8.4-10.2); Carbon Dioxide 28 mmol/L (22-29); Chloride 106 mmol/L (96-108); Creatinine Clr Calc Pharmacy 144.1; Estimated Glomerular Filt Rate > 60; Ethanol < 10 mg/dL; Glucose Random 81 mg/dL (60-115); Sodium 141 mmol/L (135-145); Total Protein 7.8 g/dL (6.5-8.0)
[2024-05-23 13:09] LABS: Appearance Urine Clear; Color Urine Yellow; Glucose Urine UA Negative (Negative); Leukocyte Esterase Urine Negative (Negative); Nitrite Urine Negative (Negative); PH 5.5 (5.0-9.0); Specific Gravity - Urine 1.025 (1.005-1.025); Urine Blood Negative (Negative); Urine Ketones Negative (Negative); Urine Protein Negative (Neg-Trace)
[2024-05-23 13:18] LABS: Amphetamine Screen Urine Not Detected (Not Detect); Barbiturates, Urine Not Detected (Not Detect); Benzodiazepines Screen Urine Not Detected (Not Detect); Buprenorphine Scr Not Detected (Not Detect); Cannabinoid Screen Urine Not Detected (Not Detect); Cocaine Screen Urine Not Detected (Not Detect); Fentanyl, urine Not Detected (Not Detect); Methadone Screen, Urine Not Detected (Not Detect); Opiate Screen Urine Not Detected (Not Detect); Oxycodone Screen Urine Not Detected (Not Detect); Phencyclidine Screen Urine Not Detected (Not Detect)
[2024-05-23 14:19] VITALS: RESP 16
[2024-05-23 19:20] VITALS: BP 123/71; PULSE 73; RESP 16; TEMP 36.8; O2SAT 97
--- NOTE | 2024-05-23 22:37 | MHC.CARE ---
Pt was assessed by CARE Team earlier, disposition is Pt will be an Adult IPL[facility] bed search. Pt will be seen for mental status update tomorrow if placement is not found.
[2024-05-24] VITALS (7 sets, daily range): BP systolic 112–145; BP diastolic 65–88; PULSE 54–83; RESP 16; TEMP 36.6–36.9; O2SAT 96–99; BMI 28.8
--- NOTE | 2024-05-24 07:36 | MHC.EDTECH ---
Breakfast given to patient on a safety tray. Sitter present for patient safety.
--- NOTE | 2024-05-24 07:42 | MHC.EDTECH ---
Patient ate 100% of breakfast.
--- NOTE | 2024-05-24 07:45 | MHC.EDTECH ---
Patient ambulated with sitter to the bathroom. Patient ambulated back to bed with sitter. Patient resting, states he is comfortable. Sitter present for patient safety.
--- NOTE | 2024-05-24 09:28 | ECG_ITS ---
Test Reason : QTC CHECK Blood Pressure : / mmHG Vent. Rate : 071 BPM Atrial Rate : 071 BPM P-R Int : 160 ms QRS Dur : 096 ms QT Int : 392 ms P-R-T Axes : 055 -66 047 degrees QTc Int : 425 ms Normal sinus rhythm Left axis deviation Pulmonary disease pattern Incomplete right bundle branch block Abnormal ECG When compared with ECG of 28-APR-2024 09:39, Incomplete right bundle branch block is now Present Referred By: Michelle Healy Electronically Signed By:MADDIE MULLINS MD
[2024-05-24] MEDS: hydrOXYzine HCL 25 MG TABLET PO ×2 (10:48→20:51)
[2024-05-24] MEDS: Baclofen 10 MG TABLET PO ×2 (10:48→20:52)
[2024-05-24] MEDS: Escitalopram Oxalate 20 MG TABLET PO (10:48)
--- NOTE | 2024-05-24 11:22 | PHA.MEDREC ---
Addendum entered by Oscar Byrne RPh 05/24/24 11:29: Reviewed by [facility] ED. Spoke with PRACHI Monroy, to confirm pt is not taking clonidine as prescribed (4 tabs daily). Pt is only take 1 tab daily. Pt provider aware; they chose to continue 0.1mg BID. Original Note: Pharmacy Consult ? Medication Reconciliation Pharmacy has reviewed the medication reconciliation done by nursing. Claims match med list.
--- NOTE | 2024-05-24 17:56 | PC.ADMIT ---
Jayjay Liu (patient) is a 33 year old male who came from the [facility] on a CV for the treatment of SI. Precipitants of this admission include having auditory hallucinations, being non-compliant with home meds, having no support system, and his apartment recently being foreclosed. Patient stayed with a friend for a brief period of time but he currently identifies as homeless and patient stated that his ?mom will be picking him up upon discharge and he will be moving to the [facility] with her?. Jayjay Horton has a past medical history of substance use disorder, PTSD, and schizoaffective disorder. His mood is depressed and anxious 02/13 and he is endorsing visual and auditory hallucinations. When asked to elaborate Jayjay Horton stated? I see and hear static. I can't hear exactly what is said -it's muffled, but I know it's negative. Patient is denying current SI/HI (no plan or intent) and denies AHV. Patient is calm and cooperative with admission process but appears to have periods of dissociation/internal preoccupation and poor concentration. Jayjay Horton contracts for safety and stated I am able to seek staff if I don't feel well. No appetite or sleep issues reported. Patient has hx of substance use disorder- smokes crack cocaine but currently has a 3-week period of abstinence. Utox negative for everything.?
[2024-05-24] MEDS: HaloperidoL 5 MG TABLET 10 MG PO (20:51)
[2024-05-24] MEDS: cloNIDine HCL 0.1 MG TABLET PO (20:51)
[2024-05-24] MEDS: traZODone HCL 50 MG TABLET PO (20:52)
--- NOTE | 2024-05-25 08:39 | HO.PSYADMNOT ---
HPI Date of Service: 05/25/24 Chief Complaint: PTSD, Schizoaffective Disorder Sources of Information: patient interviewed, chart reviewed and crisis/core team assessment reviewed HPI Subjective Notes: Day Warning and Conditional Voluntary Narrative: Patient is a 33-year-old male with history of schizoaffective disorder, depressed type, PTSD, crack cocaine use disorder, recently discharged from 3 weeks ago, who presents for worsening depression, psychosis in the face of going off psychiatric medications. Patient reports that he did in fact go to [facility], where he says he stayed for 2 weeks but said it was not a good fit and left. Patient said that they kept people in 1 room all day long which was difficult to endure. Patient denies that he relapsed but says he stopped taking his medications. He reports worsening depression and continued auditory hallucinations that say to self-harm and seeing shadows that are disturbing. Patient developed SI so self presented; denies any intention or plans. Patient shared that last time he was here he minimized the extent of his psychotic symptoms and while he said Haldol did help it only slightly reduced AH; also he says he remained depressed. Patient is not sure why he was not more forthcoming other than to say it is normal for him to hide his feelings. Patient feels more comfortable now sharing and says he will be open going forward. Discussed medication management, risks/side effects and patient would like to continue with Haldol but at a higher dose Patient seen on 05/24/24 Past Psychiatric History: IP: [place] discharged 09/26/23-polysubstance use, [facility] 10/2023 OP: Denies Hx of suicide attempt one month ago-wrapped a lamp cord around his neck Hx of suicide attempt age 5 when he drank bleach Hx of auditory of visual perceptual alteration in childhood- stopped around age 11, restarted when he began using crack-cocaine . Medical Evaluation Reviewed: Yes [facility] Medical History Homeless Cocaine use disorder Schizoaffective disorder, depressive type PTSD (post-traumatic stress disorder) Major depression Substance-induced psychotic disorder Psychiatric diagnosis Anxiety HTN (hypertension) Sore throat (viral) Surgical History H/O hernia repair Family History: Brother suicided Mother-bipolar, multiple personality disorder Maternal relatives with addiction Family history of trauma Social History: Born in [place] 3 brothers, 2 sisters Attended high school in [place]. Attended [employer] Denies legal issues Enjoys music Substance History: Cocaine use disorder; reports he has been sober for the past 3 weeks Trauma History: Affirms Diagnostics Vital Signs (24Hr): Vital Signs - 24 hr 05/24/24 10:54 05/24/24 11:36 05/24/24 15:25 Temperature 98.1 F 98.4 F Pulse Rate 70 64 83 Respiratory Rate 16 16 16 Blood Pressure 127/72 127/72 141/79 H Pulse Oximetry 98 98 98 Oxygen Delivery Method Room Air Room Air Room Air 05/24/24 16:58 05/24/24 20:00 05/24/24 20:00 Temperature 98.3 F 98.3 F 98.3 F Pulse Rate 70 74 74 Respiratory Rate 16 16 Blood Pressure 145/88 H 132/73 132/73 Pulse Oximetry 99 96 96 Oxygen Delivery Method Room Air Room Air Room Air BMI result Body Mass Index 28.8 Labs 05/23/24 12:49 05/25/24 08:29 Labs: Laboratory Results - last 48 hr 05/23/24 05/23/24 12:49 13:02 WBC 5.9 RBC 5.15 Hgb 14.4 Hct 43.1 MCV 83.7 MCH 28.0 MCHC 33.4 RDW 14.6 Plt Count 190 D MPV 10.7 Immature Gran % (Auto) 0.2 Neut % (Auto) 39.4 L Lymph % (Auto) 47.0 H [place] % (Auto) 10.3 Eos % (Auto) 2.4 Baso % (Auto) 0.7 Lymph # (Auto) 2.8 [place] # (Auto) 0.6 Eos # (Auto) 0.1 Baso # (Auto) 0.0 Abs Immat Gran (auto) 0.01 Absolute Neuts (auto) 2.3 Absolute Nucleated RBC 0.000 Nucleated RBC % (auto) 0.0 Sodium 141 Potassium 4.0 Chloride 106 Carbon Dioxide 28 Anion Gap 11 L BUN 12 Creatinine 0.81 Estim Creat Clear Calc 144.1 Estimated GFR > 60 Random Glucose 81 Calcium 9.6 Total Bilirubin 0.5 AST 32 ALT 60 H Alkaline Phosphatase 56 Total Protein 7.8 Albumin 4.3 Urine Color Yellow Urine Appearance Clear Urine pH 5.5 Ur Specific [place] 1.025 Urine Protein Negative Urine Glucose (UA) Negative Urine Ketones Negative Urine Blood Negative Urine Nitrite Negative Ur Leukocyte Esterase Negative Urine Opiates Screen Not Detected Ur Buprenorphine Scrn Not Detected Ur Oxycodone Screen Not Detected Urine Methadone Screen Not Detected Urine Fentanyl Screen Not Detected Ur Barbiturates Screen Not Detected Ur Phencyclidine Scrn Not Detected Ur Amphetamines Screen Not Detected U Benzodiazepines Scrn Not Detected Urine Cocaine Screen Not Detected U Marijuana (THC) Screen Not Detected Ethyl Alcohol < 10 Meds/Allergies Allergies Allergies Allergy/AdvReac Type Severity Reaction Status Date / Time No Known Allergies Allergy Verified 05/23/24 12:40 [No Known Allergies*] Mental Status Exam Mental Status Exam Narrative: Pt is alert and oriented; behavior is cooperative, quiet calm; patient is not in distress; dressed in hospital attire, dew rag, glasses, unkempt; mood is described as depressed and affect congruent, downcast; eye contact a little avoidant; Speech is a little slow and soft; normal prosody not pressured; psychomotor retardation present; thought process is organized and goal directed; Thought content is on dealing with psychotic symptoms, tx; otherwise pertinent to relevant topics and without any delusional content, paranoid ideations or grandiosity; passive intermittent SI, resolving; no HI. Positive for AH; patient somewhat internally preoccupied. Patients insight and judgment impaired Assessment & Plan Assessment & Plan (1) Schizoaffective disorder, depressive type: Status: Acute Code(s): F25.1 - Schizoaffective disorder, depressive type (2) PTSD (post-traumatic stress disorder): Status: Acute Code(s): F43.10 - Post-traumatic stress disorder, unspecified (3) Cocaine use disorder: Status: Acute Code(s): F14.10 - Cocaine abuse, uncomplicated (4) Anxiety: Status: Acute Code(s): F41.9 - Anxiety disorder, unspecified Plan HPI: Patient is a 33-year-old male with history of schizoaffective disorder, depressed type, PTSD, crack cocaine use disorder, recently discharged from 3 weeks ago, who presents for worsening depression, psychosis in the face of going off psychiatric medications. Patient reports that he did in fact go to [facility], where he says he stayed for 2 weeks but said it was not a good fit and left. Patient said that they kept people in 1 room all day long which was difficult to endure. Patient denies that he relapsed but says he stopped taking his medications (UDS negative). He reports worsening depression and continued auditory hallucinations that say to self-harm and seeing shadows that are disturbing. Patient developed SI so self presented; denies any intention or plans. Patient shared that last time he was here he minimized the extent of his psychotic symptoms and while he said Haldol did help it only slightly reduced AH; also he says he remained depressed. Patient is not sure why he was not more forthcoming other than to say it is normal for him to hide his feelings. Patient feels more comfortable now sharing and says he will be open going forward. Discussed medication management, risks/side effects and patient would like to continue with Haldol but at a higher dose Formulation/clinical reasoning: Patient has both psychotic symptoms and depression, psychotic symptoms seem to be present even when not depressed and patient reports present even when sober. Patient has had very minimal medication trials and per patient, Haldol is the 1st antipsychotic. After review of risks/side effects and other options, patient wants to remain on Haldol since it did help a little but wants an increased dose. Regarding aftercare, patient reports his mother is taking him to [place] to live with her. Plan: CV Q 15 minute checks Restart Haldol at higher dose of 15 mg q.h.s.; patient does not like divided dosing since it makes him tired Restart Lexapro 20 mg daily for depression; will consider other options, perhaps Vraylar which could possibly replace Haldol Clonidine 0.1 mg q.h.s. for anxiety/trouble sleeping Trazodone 50 mg q.h.s.; extra for p.r.n. for continued insomnia Patient educated on: diagnosis, medication risk/benefits, substance abuse and therapeutic strategies Informed Consent: understands Reason for continued inpatient stay Substantial Risk for: rapid decompensation Statement Statement: I have reviewed the history and physical and performed a pertinent examination on my patient. No changes have occurred unless specified. If the History and Physical was not performed prior to admission, the Hospitalist's service will be consulted for completing the admission physical. Time Spent With Patient Time: Total time managing care of this patient today ____ minutes.
[2024-05-25] MEDS: Escitalopram Oxalate 20 MG TABLET PO (08:45)
[2024-05-25] MEDS: Baclofen 10 MG TABLET PO ×2 (08:45→20:49)
[2024-05-25 09:09] LABS: Estimated Average Glucose 100 mg/dL; Hemoglobin A1C 118.9872 umol/L; Hemoglobin A1c % 5.1 % (<6.0)
[2024-05-25 09:25] LABS: Alanine Aminotransferase 44 U/L (0-40); Albumin Level 4.3 g/dL (3.5-5.0); Alkaline Phosphatase 52 U/L (39-117); Anion Gap 9 (12-20); Aspartate Amino Transferase 31 U/L (5-37); Bilirubin Total 0.6 mg/dL (0.0-1.0); Blood Urea Nitrogen 12 mg/dL (9-16); Carbon Dioxide 30 mmol/L (22-29); Chloride 104 mmol/L (96-108); Cholesterol 255 mg/dL (<200); Creatinine Clr Calc Pharmacy 124.5; Estimated Glomerular Filt Rate > 60; Glucose Fasting 91 mg/dL (60-99); HDL Cholesterol 52 mg/dL (>40); LDL Cholesterol Calculated 179 mg/dL (<100); Potassium 4.2 mmol/L (3.3-5.1); Sodium 139 mmol/L (135-145); Total Protein 7.9 g/dL (6.5-8.0); Triglycerides 122 mg/dL (<150)
[2024-05-25 09:30] VITALS: BP 132/63; PULSE 75; TEMP 36.4; O2SAT 99
[2024-05-25 09:41] LABS: Free T4 (Free Thyroxine) 0.78 ng/dL (0.71-1.85)
[2024-05-25 09:53] LABS: Folate 14.9 ng/mL (> or = 4.0); Vitamin B12 321 pg/mL (200-900)
[2024-05-25] MEDS: hydrOXYzine HCL 25 MG TABLET PO (14:39)
[2024-05-25 20:00] VITALS: BP 126/64; PULSE 71; RESP 16; TEMP 36.4; O2SAT 97
[2024-05-25] MEDS: cloNIDine HCL 0.1 MG TABLET PO (20:48)
[2024-05-25] MEDS: traZODone HCL 50 MG TABLET PO (20:49)
[2024-05-25] MEDS: HaloperidoL 5 MG TABLET 15 MG PO (20:49)
[2024-05-26 08:23] VITALS: BP 111/72; PULSE 77; RESP 16; TEMP 36.4; O2SAT 98
--- NOTE | 2024-05-26 08:47 | P.PNPSI_ITS ---
Subjective Subjective Date of Service: 05/26/24 Reason For Visit: PTSD, Schizoaffective Disorder Interim History: Met with patient; discussed with team pt reports he slept better last night and was appreciative of clonidine. Pt reports that AH and paranoid delusions (cameras in apt, people following him, watching him) are lessened with increased Haldol dose. Pt still depressed but agrees to work on psychotic symptoms which he is considering my just be his mind playing tricks on him Mental Status Exam Mental Status Exam Narrative: Pt is alert and oriented; behavior is cooperative, quiet, calm; patient is not in distress; dressed in hospital attire, dew rag, glasses, unkempt; mood is described as depressed and affect congruent, downcast; eye contact a little avoidant; Speech is a little slow and soft; normal prosody not pressured; psychomotor retardation present; thought process is organized and goal directed; Thought content is on dealing with psychotic symptoms, tx; otherwise pertinent to relevant topics and without any delusional content, paranoid ideations or grandiosity; no SI; no HI. Positive for AH; patient somewhat internally preoccupied. Patients insight and judgment impaired but improving Diagnostics Vital Signs (24Hr): Vital Signs - 24 hr 05/25/24 09:30 05/25/24 20:00 05/26/24 08:23 Temperature 97.5 F 97.5 F 97.5 F Pulse Rate 75 71 77 Respiratory Rate 16 16 Blood Pressure 132/63 126/64 111/72 Pulse Oximetry 99 97 98 Oxygen Delivery Method Room Air Room Air Room Air BMI result Body Mass Index 28.8 Labs 05/23/24 12:49 05/25/24 08:29 Labs: Laboratory Results - last 48 hr 05/25/24 08:29 Sodium 139 Potassium 4.2 Chloride 104 Carbon Dioxide 30 H Anion Gap 9 L BUN 12 Creatinine 0.94 Estim Creat Clear Calc 124.5 Estimated GFR > 60 Fasting Glucose 91 Estimat Average Glucose 100 Hemoglobin A1c % 5.1 Calcium 10.0 Magnesium 2.0 Total Bilirubin 0.6 AST 31 ALT 44 H Alkaline Phosphatase 52 Total Protein 7.9 Albumin 4.3 Triglycerides 122 Cholesterol 255 H LDL Cholesterol, Calc 179 H HDL Cholesterol 52 Vitamin B12 321 Folate 14.9 TSH 1.40 Free T4 0.78 Medications Medications Current Medications Acetaminophen (Acetaminophen 325 Mg Tablet) 650 mg PO Q6H PRN PRN Reason: Headache/Pain Mild Scale (1-3) Al Hydroxide/Mg Hydroxide (Magnesium Hydrox/Alum Hydrox 30 Ml Oral.Susp) 30 ml PO Q6H PRN PRN Reason: Heartburn/Nausea Baclofen (Baclofen 10 Mg Tablet) 10 mg PO BID [facility] Last Admin: 05/25/24 20:49 Dose: 10 mg Clonidine HCl (Clonidine Hcl 0.1 Mg Tablet) 0.1 mg PO Q4H PRN; Protocol PRN Reason: anxiety Clonidine HCl (Clonidine Hcl 0.1 Mg Tablet) 0.1 mg PO BEDTIME LAUREN; Protocol Last Admin: 05/25/24 20:48 Dose: 0.1 mg Escitalopram Oxalate (Escitalopram Oxalate 20 Mg Tablet) 20 mg PO DAILY LAUREN Last Admin: 05/25/24 08:45 Dose: 20 mg Haloperidol (Haloperidol 5 Mg Tablet) 15 mg PO BEDTIME LAUREN Last Admin: 05/25/24 20:49 Dose: 15 mg Hydroxyzine HCl (Hydroxyzine Hcl 25 Mg Tablet) 25 mg PO Q6H PRN PRN Reason: Anxiety Last Admin: 05/25/24 14:39 Dose: 25 mg Magnesium Hydroxide (Milk Of Magnesia 30 Ml Oral.Susp) 30 ml PO DAILY PRN PRN Reason: Constipation Nicotine (Nicotine 21 Mg Patch.Td24) 21 mg TRANSDERMA DAILY PRN PRN Reason: nicotine cravings Nicotine Polacrilex (Nicotine Polacrilex 2 Mg Gum) 4 mg BUCCAL Q2H PRN PRN Reason: Nicotine Cravings Trazodone HCl (Trazodone Hcl 50 Mg Tablet) 50 mg PO BEDTIME [facility] Last Admin: 05/25/24 20:49 Dose: 50 mg Trazodone HCl (Trazodone Hcl 50 Mg Tablet) 50 mg PO BEDTIME MRX1 PRN PRN Reason: continued insomnia Allergies Allergies Allergy/AdvReac Type Severity Reaction Status Date / Time No Known Allergies Allergy Verified 05/23/24 12:40 [No Known Allergies*] Assessment & Plan Assessment & Plan (1) Schizoaffective disorder, depressive type: Status: Acute Code(s): F25.1 - Schizoaffective disorder, depressive type (2) PTSD (post-traumatic stress disorder): Status: Acute Code(s): F43.10 - Post-traumatic stress disorder, unspecified (3) Cocaine use disorder: Status: Acute Code(s): F14.10 - Cocaine abuse, uncomplicated (4) Anxiety: Status: Acute Code(s): F41.9 - Anxiety disorder, unspecified Plan HPI: Patient is a 33-year-old male with history of schizoaffective disorder, depressed type, PTSD, crack cocaine use disorder, recently discharged from 3 weeks ago, who presents for worsening depression, psychosis in the face of going off psychiatric medications. Patient reports that he did in fact go to [place], where he says he stayed for 2 weeks but said it was not a good fit and left. Patient said that they kept people in 1 room all day long which was difficult to endure. Patient denies that he relapsed but says he stopped taking his medications (UDS negative). He reports worsening depression and continued auditory hallucinations that say to self-harm and seeing shadows that are disturbing. Patient developed SI so self presented; denies any intention or plans. Patient shared that last time he was here he minimized the extent of his psychotic symptoms and while he said Haldol did help it only slightly reduced AH; also he says he remained depressed. Patient is not sure why he was not more forthcoming other than to say it is normal for him to hide his feelings. Patient feels more comfortable now sharing and says he will be open going forward. Discussed medication management, risks/side effects and patient would like to continue with Haldol but at a higher dose Formulation/clinical reasoning: Patient has both psychotic symptoms and depression, psychotic symptoms seem to be present even when not depressed and patient reports present even when sober. Patient has had very minimal medication trials and per patient, Haldol is the 1st antipsychotic. After review of risks/side effects and other options, patient wants to remain on Haldol since it did help a little but wants an increased dose. Regarding aftercare, patient reports his mother is taking him to [place] to live with her. Hospital course: 05/26 pt reports he slept better last night and was appreciative of clonidine. Pt reports that AH and paranoid delusions (cameras in apt, people following him, watching him) are lessened with increased Haldol dose. Pt still depressed but agrees to work on psychotic symptoms which he is considering my just be his mind playing tricks on him Plan: CV Q 15 minute checks continue Haldol 15mg (started at higher dose of 15 mg q.h.s.; patient does not like divided dosing since it makes him tired) continue Lexapro 20 mg daily for depression; will consider other options, perhaps Vraylar which could possibly replace Haldol Clonidine 0.1 mg q.h.s. for anxiety/trouble sleeping Trazodone 50 mg q.h.s.; extra for p.r.n. for continued insomnia Patient educated on: diagnosis and medication risk/benefits Informed Consent: understands and further education needed Reason for continued inpatient stay Substantial Risk for: stable for discharge and rapid decompensation Time Spent With Patient Time: Total time managing care of this patient today ____ minutes.
[2024-05-26] MEDS: Escitalopram Oxalate 20 MG TABLET PO (09:11)
[2024-05-26] MEDS: Baclofen 10 MG TABLET PO ×2 (09:11→20:55)
[2024-05-26 19:48] VITALS: BP 129/82; PULSE 72; RESP 14; TEMP 36.4; O2SAT 98
[2024-05-26] MEDS: cloNIDine HCL 0.1 MG TABLET PO (20:55)
[2024-05-26] MEDS: traZODone HCL 50 MG TABLET PO (20:55)
[2024-05-26] MEDS: HaloperidoL 5 MG TABLET 15 MG PO (20:55)
[2024-05-27] MEDS: traZODone HCL 50 MG TABLET PO ×2 (01:33→20:20)
[2024-05-27 08:01] VITALS: BP 107/65; PULSE 66; RESP 16; TEMP 36.4; O2SAT 98
[2024-05-27] MEDS: Baclofen 10 MG TABLET PO ×2 (08:33→20:20)
[2024-05-27] MEDS: Escitalopram Oxalate 20 MG TABLET PO (08:33)
--- NOTE | 2024-05-27 09:36 | HO.PSYCHPN ---
Subjective Subjective Date of Service: 05/27/24 Reason For Visit: PTSD, Schizoaffective Disorder Interim History: met with pt; discussed with team pt reports AH a little lower still, but remain bothersome. However, paranoid delusion remain resolved. He would like to leave [facility] where it is for now. Patient reports continued depression which is bothering him. Discussed options, risks/side effects and patient to trial of Wellbutrin; will alert policy writer sales if this increases any AH Mental Status Exam Mental Status Exam Narrative: Pt is alert and oriented; behavior is cooperative, quiet, calm; patient is not in distress; dressed in casual attire, dew rag, glasses, unkempt; mood is described as ok...depressed and affect congruent, downcast; eye contact a little improved; Speech is a little slow and soft; normal prosody not pressured; psychomotor retardation present; thought process is organized and goal directed; Thought content is on dealing with psychotic symptoms and depression, tx; otherwise pertinent to relevant topics and without any delusional content, paranoid ideations or grandiosity; no SI; no HI. Positive for AH; patient somewhat internally preoccupied. Patients insight and judgment fair Diagnostics Vital Signs (24Hr): Vital Signs - 24 hr 05/26/24 19:48 05/27/24 08:01 Temperature 97.6 F 97.6 F Pulse Rate 72 66 Respiratory Rate 14 16 Blood Pressure 129/82 107/65 Pulse Oximetry 98 98 Oxygen Delivery Method Room Air Room Air BMI result Body Mass Index 28.8 Labs 05/23/24 12:49 05/25/24 08:29 Labs: Laboratory Results - last 48 hr 05/25/24 08:29 Vitamin B12 321 Folate 14.9 TSH 1.40 Free T4 0.78 Medications Medications Current Medications Acetaminophen (Acetaminophen 325 Mg Tablet) 650 mg PO Q6H PRN PRN Reason: Headache/Pain Mild Scale (1-3) Al Hydroxide/Mg Hydroxide (Magnesium Hydrox/Alum Hydrox 30 Ml Oral.Susp) 30 ml PO Q6H PRN PRN Reason: Heartburn/Nausea Baclofen (Baclofen 10 Mg Tablet) 10 mg PO BID [facility] Last Admin: 05/27/24 08:33 Dose: 10 mg Clonidine HCl (Clonidine Hcl 0.1 Mg Tablet) 0.1 mg PO Q4H PRN; Protocol PRN Reason: anxiety Clonidine HCl (Clonidine Hcl 0.1 Mg Tablet) 0.1 mg PO BEDTIME LAUREN; Protocol Last Admin: 05/26/24 20:55 Dose: 0.1 mg Escitalopram Oxalate (Escitalopram Oxalate 20 Mg Tablet) 20 mg PO DAILY LAUREN Last Admin: 05/27/24 08:33 Dose: 20 mg Haloperidol (Haloperidol 5 Mg Tablet) 15 mg PO BEDTIME LAUREN Last Admin: 05/26/24 20:55 Dose: 15 mg Hydroxyzine HCl (Hydroxyzine Hcl 25 Mg Tablet) 25 mg PO Q6H PRN PRN Reason: Anxiety Last Admin: 05/25/24 14:39 Dose: 25 mg Magnesium Hydroxide (Milk Of Magnesia 30 Ml Oral.Susp) 30 ml PO DAILY PRN PRN Reason: Constipation Nicotine (Nicotine 21 Mg Patch.Td24) 21 mg TRANSDERMA DAILY PRN PRN Reason: nicotine cravings Nicotine Polacrilex (Nicotine Polacrilex 2 Mg Gum) 4 mg BUCCAL Q2H PRN PRN Reason: Nicotine Cravings Trazodone HCl (Trazodone Hcl 50 Mg Tablet) 50 mg PO BEDTIME LAUREN Last Admin: 05/26/24 20:55 Dose: 50 mg Trazodone HCl (Trazodone Hcl 50 Mg Tablet) 50 mg PO BEDTIME MRX1 PRN PRN Reason: continued insomnia Last Admin: 05/27/24 01:33 Dose: 50 mg Allergies Allergies Allergy/AdvReac Type Severity Reaction Status Date / Time No Known Allergies Allergy Verified 05/23/24 12:40 [No Known Allergies*] Assessment & Plan Assessment & Plan (1) Schizoaffective disorder, depressive type: Status: Acute Code(s): F25.1 - Schizoaffective disorder, depressive type (2) PTSD (post-traumatic stress disorder): Status: Acute Code(s): F43.10 - Post-traumatic stress disorder, unspecified (3) Cocaine use disorder: Status: Acute Code(s): F14.10 - Cocaine abuse, uncomplicated (4) Anxiety: Status: Acute Code(s): F41.9 - Anxiety disorder, unspecified Plan HPI: Patient is a 33-year-old male with history of schizoaffective disorder, depressed type, PTSD, crack cocaine use disorder, recently discharged from 3 weeks ago, who presents for worsening depression, psychosis in the face of going off psychiatric medications. Patient reports that he did in fact go to [place], where he says he stayed for 2 weeks but said it was not a good fit and left. Patient said that they kept people in 1 room all day long which was difficult to endure. Patient denies that he relapsed but says he stopped taking his medications (UDS negative). He reports worsening depression and continued auditory hallucinations that say to self-harm and seeing shadows that are disturbing. Patient developed SI so self presented; denies any intention or plans. Patient shared that last time he was here he minimized the extent of his psychotic symptoms and while he said Haldol did help it only slightly reduced AH; also he says he remained depressed. Patient is not sure why he was not more forthcoming other than to say it is normal for him to hide his feelings. Patient feels more comfortable now sharing and says he will be open going forward. Discussed medication management, risks/side effects and patient would like to continue with Haldol but at a higher dose Formulation/clinical reasoning: Patient has both psychotic symptoms and depression, psychotic symptoms seem to be present even when not depressed and patient reports present even when sober. Patient has had very minimal medication trials and per patient, Haldol is the 1st antipsychotic. After review of risks/side effects and other options, patient wants to remain on Haldol since it did help a little but wants an increased dose. Regarding aftercare, patient reports his mother is taking him to [place] to live with her. Hospital course: 05/26 pt reports he slept better last night and was appreciative of clonidine. Pt reports that AH and paranoid delusions (cameras in apt, people following him, watching him) are lessened with increased Haldol dose. Pt still depressed but agrees to work on psychotic symptoms which he is considering my just be his mind playing tricks on him 05/27 pt reports AH a little lower still, but remain bothersome. However, paranoid delusion remain resolved. He would like to leave [facility] where it is for now. Patient reports continued depression which is bothering him. Discussed options, risks/side effects and patient to trial of Wellbutrin; will alert policy writer sales if this increases any AH Plan: CV Q 15 minute checks Start Wellbutrin XL 150 mg; will titrate if tolerated and needed continue Haldol 15mg (started at higher dose of 15 mg q.h.s.; patient does not like divided dosing since it makes him tired) continue Lexapro 20 mg daily for depression; will consider other options, perhaps Vraylar which could possibly replace Haldol Clonidine 0.1 mg q.h.s. for anxiety/trouble sleeping Trazodone 50 mg q.h.s.; extra for p.r.n. for continued insomnia Patient educated on: diagnosis and medication risk/benefits Informed Consent: understands Reason for continued inpatient stay Substantial Risk for: rapid decompensation Time Spent With Patient Time: Total time managing care of this patient today ____ minutes.
[2024-05-27] MEDS: hydrOXYzine HCL 25 MG TABLET PO (13:51)
[2024-05-27 20:00] VITALS: BP 138/91; PULSE 73; TEMP 36.8; O2SAT 95
[2024-05-27] MEDS: HaloperidoL 5 MG TABLET 15 MG PO (20:20)
[2024-05-27 20:21] VITALS: BP 138/91
[2024-05-27] MEDS: cloNIDine HCL 0.1 MG TABLET PO (20:21)
[2024-05-28 08:13] VITALS: BP 126/73; PULSE 70; TEMP 36.9; O2SAT 97
[2024-05-28] MEDS: hydrOXYzine HCL 25 MG TABLET PO (09:08)
[2024-05-28] MEDS: Baclofen 10 MG TABLET PO ×2 (09:08→21:04)
[2024-05-28] MEDS: Escitalopram Oxalate 20 MG TABLET PO (09:08)
--- NOTE | 2024-05-28 09:38 | HO.PSYCHPN ---
Subjective Subjective Date of Service: 05/28/24 Reason For Visit: PTSD, Schizoaffective Disorder Interim History: Met with patient; discussed with team Patient reports no change; still AH which is bothersome but has decreased; still depressed. No problems or side effects with Wellbutrin and agrees to increase Mental Status Exam Mental Status Exam Narrative: Pt is alert and oriented; behavior is cooperative, quiet, calm; patient is not in distress; dressed in casual attire, dew rag, glasses, unkempt; mood is described as ok...depressed and affect congruent, downcast; eye contact a little improved; Speech is a little slow and soft; normal prosody not pressured; psychomotor retardation present; thought process is organized and goal directed; Thought content is on dealing with psychotic symptoms and depression, tx; otherwise pertinent to relevant topics and without any delusional content, paranoid ideations or grandiosity; no SI; no HI. Positive for AH, though a little less; patient somewhat internally preoccupied. Patients insight and judgment fair Diagnostics Vital Signs (24Hr): Vital Signs - 24 hr 05/27/24 20:00 05/27/24 20:21 05/28/24 08:13 Temperature 98.2 F 98.4 F Pulse Rate 73 70 Blood Pressure 138/91 H 138/91 H 126/73 Pulse Oximetry 95 97 Oxygen Delivery Method Room Air Room Air BMI result Body Mass Index 28.8 Labs 05/23/24 12:49 05/25/24 08:29 Medications Medications Current Medications Acetaminophen (Acetaminophen 325 Mg Tablet) 650 mg PO Q6H PRN PRN Reason: Headache/Pain Mild Scale (1-3) Al Hydroxide/Mg Hydroxide (Magnesium Hydrox/Alum Hydrox 30 Ml Oral.Susp) 30 ml PO Q6H PRN PRN Reason: Heartburn/Nausea Baclofen (Baclofen 10 Mg Tablet) 10 mg PO BID LAUREN Last Admin: 05/28/24 09:08 Dose: 10 mg Bupropion HCl (Bupropion Hcl Xl 150 Mg Tab.Er.24h) 150 mg PO DAILY LAUREN Clonidine HCl (Clonidine Hcl 0.1 Mg Tablet) 0.1 mg PO Q4H PRN; Protocol PRN Reason: anxiety Clonidine HCl (Clonidine Hcl 0.1 Mg Tablet) 0.1 mg PO BEDTIME LAUREN; Protocol Last Admin: 05/27/24 20:21 Dose: 0.1 mg Escitalopram Oxalate (Escitalopram Oxalate 20 Mg Tablet) 20 mg PO DAILY LAUREN Last Admin: 05/28/24 09:08 Dose: 20 mg Haloperidol (Haloperidol 5 Mg Tablet) 15 mg PO BEDTIME LAUREN Last Admin: 05/27/24 20:20 Dose: 15 mg Hydroxyzine HCl (Hydroxyzine Hcl 25 Mg Tablet) 25 mg PO Q6H PRN PRN Reason: Anxiety Last Admin: 05/28/24 09:08 Dose: 25 mg Magnesium Hydroxide (Milk Of Magnesia 30 Ml Oral.Susp) 30 ml PO DAILY PRN PRN Reason: Constipation Nicotine (Nicotine 21 Mg Patch.Td24) 21 mg TRANSDERMA DAILY PRN PRN Reason: nicotine cravings Nicotine Polacrilex (Nicotine Polacrilex 2 Mg Gum) 4 mg BUCCAL Q2H PRN PRN Reason: Nicotine Cravings Trazodone HCl (Trazodone Hcl 50 Mg Tablet) 50 mg PO BEDTIME LAUREN Last Admin: 05/27/24 20:20 Dose: 50 mg Trazodone HCl (Trazodone Hcl 50 Mg Tablet) 50 mg PO BEDTIME MRX1 PRN PRN Reason: continued insomnia Last Admin: 05/27/24 01:33 Dose: 50 mg Allergies Allergies Allergy/AdvReac Type Severity Reaction Status Date / Time No Known Allergies Allergy Verified 05/23/24 12:40 [No Known Allergies*] Assessment & Plan Assessment & Plan (1) Schizoaffective disorder, depressive type: Status: Acute Code(s): F25.1 - Schizoaffective disorder, depressive type (2) PTSD (post-traumatic stress disorder): Status: Acute Code(s): F43.10 - Post-traumatic stress disorder, unspecified (3) Cocaine use disorder: Status: Acute Code(s): F14.10 - Cocaine abuse, uncomplicated (4) Anxiety: Status: Acute Code(s): F41.9 - Anxiety disorder, unspecified Plan HPI: Patient is a 33-year-old male with history of schizoaffective disorder, depressed type, PTSD, crack cocaine use disorder, recently discharged from 3 weeks ago, who presents for worsening depression, psychosis in the face of going off psychiatric medications. Patient reports that he did in fact go to [place], where he says he stayed for 2 weeks but said it was not a good fit and left. Patient said that they kept people in 1 room all day long which was difficult to endure. Patient denies that he relapsed but says he stopped taking his medications (UDS negative). He reports worsening depression and continued auditory hallucinations that say to self-harm and seeing shadows that are disturbing. Patient developed SI so self presented; denies any intention or plans. Patient shared that last time he was here he minimized the extent of his psychotic symptoms and while he said Haldol did help it only slightly reduced AH; also he says he remained depressed. Patient is not sure why he was not more forthcoming other than to say it is normal for him to hide his feelings. Patient feels more comfortable now sharing and says he will be open going forward. Discussed medication management, risks/side effects and patient would like to continue with Haldol but at a higher dose Formulation/clinical reasoning: Patient has both psychotic symptoms and depression, psychotic symptoms seem to be present even when not depressed and patient reports present even when sober. Patient has had very minimal medication trials and per patient, Haldol is the 1st antipsychotic. After review of risks/side effects and other options, patient wants to remain on Haldol since it did help a little but wants an increased dose. Regarding aftercare, patient reports his mother is taking him to [place] to live with her. Hospital course: 05/26 pt reports he slept better last night and was appreciative of clonidine. Pt reports that AH and paranoid delusions (cameras in apt, people following him, watching him) are lessened with increased Haldol dose. Pt still depressed but agrees to work on psychotic symptoms which he is considering my just be his mind playing tricks on him 05/27 pt reports AH a little lower still, but remain bothersome. However, paranoid delusion remain resolved. He would like to leave Haldol where it is for now. Patient reports continued depression which is bothering him. Discussed options, risks/side effects and patient to trial of Wellbutrin; will alert junior technical writer if this increases any AH 05/28 Patient reports no change; still AH which is bothersome but has decreased; still depressed. No problems or side effects with Wellbutrin and agrees to increase -vraylar also an option Plan: CV Q 15 minute checks Increase to Wellbutrin XL 300mg; will titrate if tolerated and needed continue Haldol 15mg (started at higher dose of 15 mg q.h.s.; patient does not like divided dosing since it makes him tired) continue Lexapro 20 mg daily for depression; will consider other options, perhaps Vraylar which could possibly replace Haldol Clonidine 0.1 mg q.h.s. for anxiety/trouble sleeping Trazodone 50 mg q.h.s.; extra for p.r.n. for continued insomnia Patient educated on: diagnosis and medication risk/benefits Informed Consent: understands Reason for continued inpatient stay Substantial Risk for: stable for discharge, rapid decompensation and med/psych decompensation Time Spent With Patient Time: Total time managing care of this patient today ____ minutes.
[2024-05-28] MEDS: buPROPion HCl XL 150 MG TAB.ER.24H PO (10:43)
--- OUTSIDE RECORDS SUMMARY | 2024-05-28 12:41 | XMS_ITS | Continuity of Care Document ---
Author Organization [facility] ter Address [address] [place] [id number]- Care Team Providers Care Manufacturing Leader Name Role Phone Mike Butts Primary Care Physician Encounter [facility] Date(s): 05/03/24 - 05/03/[address] [id number]- Discharge Disposition: A-D/C Home Attending Physician: Amber Brantley DO Admitting Physician: Amber Brantley DO Referring Physician: Not on Staff, Referring MD Allergies, Adverse Reactions, Alerts No Known Medication Allergies Vital Signs Most recent to oldest [Reference Range]: 1 2 Height 178 cm (05/03/24 2:22 PM) 178 cm (05/03/24 12:44 PM) Weight 87.5 kg (05/03/24 2:22 PM) 87.5 kg (05/03/24 12:44 PM) Oxygen Saturation [94-100 %] 100 % (05/03/24 12:44 PM) Pulse Rate [55-90 bpm] 78 bpm (05/03/24 12:44 PM) Blood Pressure [90-138/55-84 mm Hg] 134/ 88mm Hg (05/03/24 12:44 PM) Respiratory Rate [16-30 br/min] 16 br/mi n (05/03/24 12:44 PM) Temperature [96.8-100.4 DegF] 98.2 DegF (05/03/24 12:44 PM) Mode of Delivery (Oxygen) Room air (05/03/24 12:44 PM) Blood pressure sites Arm, right (05/03/24 12:44 PM) Temperature Route Oral (10/28/24 12:44 PM) Dry Weight 87.5 kg (05/03/24 2:22 PM) 87.5 kg (05/03/24 12:44 PM) Patient Care team information Care Team Personnel Name: Mike Butts Position: Reference Physician Member Role: PCP Address: Address: [address] [place] [address]-
[2024-05-28 20:00] VITALS: BP 139/76; PULSE 68; RESP 18; TEMP 36.3; O2SAT 98
[2024-05-28] MEDS: HaloperidoL 5 MG TABLET 15 MG PO (21:04)
[2024-05-28] MEDS: cloNIDine HCL 0.1 MG TABLET PO (21:04)
[2024-05-28] MEDS: traZODone HCL 50 MG TABLET PO (21:04)
[2024-05-29] MEDS: hydrOXYzine HCL 25 MG TABLET PO ×2 (02:01→18:18)
[2024-05-29] MEDS: traZODone HCL 50 MG TABLET PO ×2 (02:01→20:18)
[2024-05-29 09:05] VITALS: BP 117/55; PULSE 62; RESP 16; TEMP 36.4; O2SAT 98
[2024-05-29] MEDS: Escitalopram Oxalate 20 MG TABLET PO (09:40)
[2024-05-29] MEDS: buPROPion HCl XL 300 MG TAB.ER.24H PO (09:40)
[2024-05-29] MEDS: Baclofen 10 MG TABLET PO ×2 (09:40→20:18)
--- NOTE | 2024-05-29 12:49 | HO.PSYCHPN ---
Subjective Subjective Date of Service: 05/29/24 Reason For Visit: PTSD, Schizoaffective Disorder Subjective Notes: Conditional Voluntary Healthcare Proxy: No Guardianship: No Medical Problems Affecting Mental Status: No Interim History: 33 yo pacing morris a bit- says he is doing ok- trouble sleeping up x 2 in night nursing reports managing with ah and ongoing depression feels anxiety/depression at 7/10 Medication Compliance: Yes Side effects from medications: No Attending Groups: Intermittent Review of Systems Acute medical concerns: No Medical Review of Systems: unchanged Mental Status Exam Mental Status Exam Narrative: food in corner of his mouth - while pacing morris Patient Appearance: Unkempt Patient Orientation: Person, Place, Time and Situation Level of Consciousness: Awake Patient Behavior: Guarded, Passive and Good Eye Contact Mood Description: Apprehensive Affect Description: Blunted Ability to Follow Directions: Fair Speech Pattern: Clear Hallucinations: Auditory Thought Process: Intact and Goal Oriented Thought Content: positive for [place] and positive for Poverty of Content Depressive Symptoms: Difficulty Sleeping and Difficulty Concentrating Abnormal Motor Activity Signs and Symptoms: Restlessness Judgement: Fair Diagnostics Vital Signs (24Hr): Vital Signs - 24 hr 05/28/24 20:00 05/29/24 09:05 Temperature 97.3 F 97.5 F Pulse Rate 68 62 Respiratory Rate 18 16 Blood Pressure 139/76 117/55 L Pulse Oximetry 98 98 Oxygen Delivery Method Room Air Room Air BMI result Body Mass Index 28.8 Labs 05/23/24 12:49 05/25/24 08:29 Medications Medications Current Medications Acetaminophen (Acetaminophen 325 Mg Tablet) 650 mg PO Q6H PRN PRN Reason: Headache/Pain Mild Scale (1-3) Al Hydroxide/Mg Hydroxide (Magnesium Hydrox/Alum Hydrox 30 Ml Oral.Susp) 30 ml PO Q6H PRN PRN Reason: Heartburn/Nausea Baclofen (Baclofen 10 Mg Tablet) 10 mg PO BID LAUREN Last Admin: 05/29/24 09:40 Dose: 10 mg Bupropion HCl (Bupropion Hcl Xl 300 Mg Tab.Er.24h) 300 mg PO DAILY LAUREN Last Admin: 05/29/24 09:40 Dose: 300 mg Clonidine HCl (Clonidine Hcl 0.1 Mg Tablet) 0.1 mg PO Q4H PRN; Protocol PRN Reason: anxiety Clonidine HCl (Clonidine Hcl 0.1 Mg Tablet) 0.1 mg PO BEDTIME LAUREN; Protocol Last Admin: 05/28/24 21:04 Dose: 0.1 mg Escitalopram Oxalate (Escitalopram Oxalate 20 Mg Tablet) 20 mg PO DAILY ON LICENSE OF [facility] Last Admin: 05/29/24 09:40 Dose: 20 mg Haloperidol (Haloperidol 5 Mg Tablet) 15 mg PO BEDTIME LAUREN Last Admin: 05/28/24 21:04 Dose: 15 mg Hydroxyzine HCl (Hydroxyzine Hcl 25 Mg Tablet) 25 mg PO Q6H PRN PRN Reason: Anxiety Last Admin: 05/29/24 02:01 Dose: 25 mg Magnesium Hydroxide (Milk Of Magnesia 30 Ml Oral.Susp) 30 ml PO DAILY PRN PRN Reason: Constipation Nicotine (Nicotine 21 Mg Patch.Td24) 21 mg TRANSDERMA DAILY PRN PRN Reason: nicotine cravings Nicotine Polacrilex (Nicotine Polacrilex 2 Mg Gum) 4 mg BUCCAL Q2H PRN PRN Reason: Nicotine Cravings Trazodone HCl (Trazodone Hcl 50 Mg Tablet) 50 mg PO BEDTIME ON LICENSE OF [facility] Last Admin: 05/28/24 21:04 Dose: 50 mg Trazodone HCl (Trazodone Hcl 50 Mg Tablet) 50 mg PO BEDTIME MRX1 PRN PRN Reason: continued insomnia Last Admin: 05/29/24 02:01 Dose: 50 mg Allergies Allergies Allergy/AdvReac Type Severity Reaction Status Date / Time No Known Allergies Allergy Verified 05/23/24 12:40 [No Known Allergies*] Assessment & Plan Assessment & Plan (1) Schizoaffective disorder, depressive type: Status: Acute Code(s): F25.1 - Schizoaffective disorder, depressive type (2) PTSD (post-traumatic stress disorder): Status: Acute Code(s): F43.10 - Post-traumatic stress disorder, unspecified (3) Cocaine use disorder: Status: Acute Code(s): F14.10 - Cocaine abuse, uncomplicated (4) Anxiety: Status: Acute Code(s): F41.9 - Anxiety disorder, unspecified Plan HPI: Patient is a 33-year-old male with history of schizoaffective disorder, depressed type, PTSD, crack cocaine use disorder, recently discharged from 3 weeks ago, who presents for worsening depression, psychosis in the face of going off psychiatric medications. Patient reports that he did in fact go to [facility], where he says he stayed for 2 weeks but said it was not a good fit and left. Patient said that they kept people in 1 room all day long which was difficult to endure. Patient denies that he relapsed but says he stopped taking his medications (UDS negative). He reports worsening depression and continued auditory hallucinations that say to self-harm and seeing shadows that are disturbing. Patient developed SI so self presented; denies any intention or plans. Patient shared that last time he was here he minimized the extent of his psychotic symptoms and while he said Haldol did help it only slightly reduced AH; also he says he remained depressed. Patient is not sure why he was not more forthcoming other than to say it is normal for him to hide his feelings. Patient feels more comfortable now sharing and says he will be open going forward. Discussed medication management, risks/side effects and patient would like to continue with Haldol but at a higher dose Formulation/clinical reasoning: Patient has both psychotic symptoms and depression, psychotic symptoms seem to be present even when not depressed and patient reports present even when sober. Patient has had very minimal medication trials and per patient, Haldol is the 1st antipsychotic. After review of risks/side effects and other options, patient wants to remain on Haldol since it did help a little but wants an increased dose. Regarding aftercare, patient reports his mother is taking him to [place] to live with her. Hospital course: 05/26 pt reports he slept better last night and was appreciative of clonidine. Pt reports that AH and paranoid delusions (cameras in apt, people following him, watching him) are lessened with increased Haldol dose. Pt still depressed but agrees to work on psychotic symptoms which he is considering my just be his mind playing tricks on him 05/27 pt reports AH a little lower still, but remain bothersome. However, paranoid delusion remain resolved. He would like to leave Haldol where it is for now. Patient reports continued depression which is bothering him. Discussed options, risks/side effects and patient to trial of Wellbutrin; will alert radio news writer if this increases any AH 05/28 Patient reports no change; still AH which is bothersome but has decreased; still depressed. No problems or side effects with Wellbutrin and agrees to increase -vraylar also an option 05/29- feeling a little better like ah somewhat muted with med change yesterday- trouble sleeping, still down Plan: CV Q 15 minute checks Increase to Wellbutrin XL 300mg; will titrate if tolerated and needed continue Haldol 15mg (started at higher dose of 15 mg q.h.s.; patient does not like divided dosing since it makes him tired) continue Lexapro 20 mg daily for depression; will consider other options, perhaps Vraylar which could possibly replace Haldol Clonidine 0.1 mg q.h.s. for anxiety/trouble sleeping Trazodone 50 mg q.h.s.; extra for p.r.n. for continued insomnia Patient educated on: medication risk/benefits and therapeutic strategies Informed Consent: understands Reason for continued inpatient stay Substantial Risk for: inability to function and rapid decompensation Time Spent With Patient Time: Total time managing care of this patient today ____ minutes.
[2024-05-29 20:00] VITALS: BP 143/83; PULSE 70; RESP 18; TEMP 37; O2SAT 98
[2024-05-29] MEDS: HaloperidoL 5 MG TABLET 15 MG PO (20:18)
[2024-05-29] MEDS: cloNIDine HCL 0.1 MG TABLET PO (20:18)
[2024-05-30] MEDS: traZODone HCL 50 MG TABLET PO (00:29)
[2024-05-30 08:55] VITALS: BP 131/80; PULSE 64; RESP 16; TEMP 36.3; O2SAT 98
[2024-05-30] MEDS: Escitalopram Oxalate 20 MG TABLET PO (08:56)
[2024-05-30] MEDS: hydrOXYzine HCL 25 MG TABLET PO ×2 (08:56→19:56)
[2024-05-30] MEDS: buPROPion HCl XL 300 MG TAB.ER.24H PO (08:56)
[2024-05-30] MEDS: Baclofen 10 MG TABLET PO ×2 (08:56→19:56)
--- NOTE | 2024-05-30 12:49 | P.PNPSI_ITS ---
Subjective Subjective Date of Service: 05/30/24 Reason For Visit: PTSD, Schizoaffective Disorder Subjective Notes: Conditional Voluntary Healthcare Proxy: No Guardianship: No Medical Problems Affecting Mental Status: No Interim History: 33 yo slept better with repeat of trazodone prn- so feeling a bit better still today- agreed to inc dose to full amount taken and see if he can sleep without repeat of night med prns- no current si, ongoing ah but more manageable Medication Compliance: Yes Side effects from medications: No Attending Groups: Intermittent Review of Systems Acute medical concerns: No Medical Review of Systems: unchanged Mental Status Exam Mental Status Exam Narrative: lying in bed Patient Appearance: Appropriate Patient Orientation: Person, Place, Time and Situation Level of Consciousness: Awake Patient Behavior: Guarded, Passive and Isolative Mood Description: Calm Affect Description: Blunted Ability to Follow Directions: Fair Speech Pattern: Clear Hallucinations: Auditory Thought Process: Intact and Goal Oriented Thought Content: positive for Poverty of Content Depressive Symptoms: Difficulty Sleeping Judgement: Fair Diagnostics Vital Signs (24Hr): Vital Signs - 24 hr 05/29/24 20:00 05/30/24 08:55 Temperature 98.6 F 97.4 F Pulse Rate 70 64 Respiratory Rate 18 16 Blood Pressure 143/83 H 131/80 Pulse Oximetry 98 98 Oxygen Delivery Method Room Air Room Air BMI result Body Mass Index 28.8 Labs 05/23/24 12:49 05/25/24 08:29 Medications Medications Current Medications Acetaminophen (Acetaminophen 325 Mg Tablet) 650 mg PO Q6H PRN PRN Reason: Headache/Pain Mild Scale (1-3) Al Hydroxide/Mg Hydroxide (Magnesium Hydrox/Alum Hydrox 30 Ml Oral.Susp) 30 ml PO Q6H PRN PRN Reason: Heartburn/Nausea Baclofen (Baclofen 10 Mg Tablet) 10 mg PO BID LAUREN Last Admin: 05/30/24 08:56 Dose: 10 mg Bupropion HCl (Bupropion Hcl Xl 300 Mg Tab.Er.24h) 300 mg PO DAILY LAUREN Last Admin: 05/30/24 08:56 Dose: 300 mg Clonidine HCl (Clonidine Hcl 0.1 Mg Tablet) 0.1 mg PO Q4H PRN; Protocol PRN Reason: anxiety Clonidine HCl (Clonidine Hcl 0.1 Mg Tablet) 0.1 mg PO BEDTIME LAUREN; Protocol Last Admin: 05/29/24 20:18 Dose: 0.1 mg Escitalopram Oxalate (Escitalopram Oxalate 20 Mg Tablet) 20 mg PO DAILY LAUREN Last Admin: 05/30/24 08:56 Dose: 20 mg Haloperidol (Haloperidol 5 Mg Tablet) 15 mg PO BEDTIME LAUREN Last Admin: 05/29/24 20:18 Dose: 15 mg Hydroxyzine HCl (Hydroxyzine Hcl 25 Mg Tablet) 25 mg PO Q6H PRN PRN Reason: Anxiety Last Admin: 05/30/24 08:56 Dose: 25 mg Magnesium Hydroxide (Milk Of Magnesia 30 Ml Oral.Susp) 30 ml PO DAILY PRN PRN Reason: Constipation Nicotine (Nicotine 21 Mg Patch.Td24) 21 mg TRANSDERMA DAILY PRN PRN Reason: nicotine cravings Nicotine Polacrilex (Nicotine Polacrilex 2 Mg Gum) 4 mg BUCCAL Q2H PRN PRN Reason: Nicotine Cravings Trazodone HCl (Trazodone Hcl 50 Mg Tablet) 50 mg PO BEDTIME LAUREN Last Admin: 05/29/24 20:18 Dose: 50 mg Trazodone HCl (Trazodone Hcl 50 Mg Tablet) 50 mg PO BEDTIME MRX1 PRN PRN Reason: continued insomnia Last Admin: 05/30/24 00:29 Dose: 50 mg Allergies Allergies Allergy/AdvReac Type Severity Reaction Status Date / Time No Known Allergies Allergy Verified 05/23/24 12:40 [No Known Allergies*] Assessment & Plan Assessment & Plan (1) Schizoaffective disorder, depressive type: Status: Acute Code(s): F25.1 - Schizoaffective disorder, depressive type (2) PTSD (post-traumatic stress disorder): Status: Acute Code(s): F43.10 - Post-traumatic stress disorder, unspecified (3) Cocaine use disorder: Status: Acute Code(s): F14.10 - Cocaine abuse, uncomplicated (4) Anxiety: Status: Acute Code(s): F41.9 - Anxiety disorder, unspecified Plan HPI: Patient is a 33-year-old male with history of schizoaffective disorder, depressed type, PTSD, crack cocaine use disorder, recently discharged from 3 weeks ago, who presents for worsening depression, psychosis in the face of going off psychiatric medications. Patient reports that he did in fact go to [place], where he says he stayed for 2 weeks but said it was not a good fit and left. Patient said that they kept people in 1 room all day long which was difficult to endure. Patient denies that he relapsed but says he stopped taking his medications (UDS negative). He reports worsening depression and continued auditory hallucinations that say to self-harm and seeing shadows that are disturbing. Patient developed SI so self presented; denies any intention or plans. Patient shared that last time he was here he minimized the extent of his psychotic symptoms and while he said Haldol did help it only slightly reduced AH; also he says he remained depressed. Patient is not sure why he was not more forthcoming other than to say it is normal for him to hide his feelings. Patient feels more comfortable now sharing and says he will be open going forward. Discussed medication management, risks/side effects and patient would like to continue with Haldol but at a higher dose Formulation/clinical reasoning: Patient has both psychotic symptoms and depression, psychotic symptoms seem to be present even when not depressed and patient reports present even when sober. Patient has had very minimal medication trials and per patient, Haldol is the 1st antipsychotic. After review of risks/side effects and other options, patient wants to remain on Haldol since it did help a little but wants an increased dose. Regarding aftercare, patient reports his mother is taking him to [place] to live with her. Hospital course: 05/26 pt reports he slept better last night and was appreciative of clonidine. Pt reports that AH and paranoid delusions (cameras in apt, people following him, watching him) are lessened with increased Haldol dose. Pt still depressed but agrees to work on psychotic symptoms which he is considering my just be his mind playing tricks on him 05/27 pt reports AH a little lower still, but remain bothersome. However, paranoid delusion remain resolved. He would like to leave Haldol where it is for now. Patient reports continued depression which is bothering him. Discussed options, risks/side effects and patient to trial of Wellbutrin; will alert specifications writer if this increases any AH 05/28 Patient reports no change; still AH which is bothersome but has decreased; still depressed. No problems or side effects with Wellbutrin and agrees to increase -vraylar also an option 05/29- feeling a little better like ah somewhat muted with med change yesterday- trouble sleeping, still down 05/30 slept better with higher dose of trazodone at bed with repeated prns will try and consolidated dosing Plan: CV Q 15 minute checks Increase to Wellbutrin XL 300mg; will titrate if tolerated and needed continue Haldol 15mg (started at higher dose of 15 mg q.h.s.; patient does not like divided dosing since it makes him tired) continue Lexapro 20 mg daily for depression; will consider other options, perhaps Vraylar which could possibly replace Haldol Clonidine 0.1 mg q.h.s. for anxiety/trouble sleeping Trazodone 50 mg q.h.s.; extra for p.r.n. for continued insomnia Patient educated on: medication risk/benefits Informed Consent: understands Reason for continued inpatient stay Substantial Risk for: rapid decompensation Time Spent With Patient Time: Total time managing care of this patient today ____ minutes.
[2024-05-30 19:46] VITALS: BP 131/89; PULSE 77; RESP 16; TEMP 36.6; O2SAT 99
[2024-05-30] MEDS: traZODone HCL 50 MG TABLET 150 MG PO (19:55)
[2024-05-30] MEDS: cloNIDine HCL 0.1 MG TABLET PO (19:55)
[2024-05-30] MEDS: HaloperidoL 5 MG TABLET 15 MG PO (19:56)
[2024-05-31 08:00] VITALS: BP 123/80; PULSE 61; RESP 16; TEMP 36.2; O2SAT 99
[2024-05-31] MEDS: Escitalopram Oxalate 20 MG TABLET PO (08:32)
[2024-05-31] MEDS: Baclofen 10 MG TABLET PO ×2 (08:32→20:04)
[2024-05-31] MEDS: buPROPion HCl XL 300 MG TAB.ER.24H PO (08:32)
--- NOTE | 2024-05-31 09:45 | P.PNPSI_ITS ---
Subjective Subjective Date of Service: 05/31/24 Reason For Visit: PTSD, Schizoaffective Disorder Interim History: met with patient; discussed with team; reviewed chart feeling much better; depression and anxiety both much improved and AH full resolved; no paranoia. Cable Tool Driller asked about slowed movements which pt says is chronic; he does not know why but says hes used to it. Pt feels good about med regimen and wants it to remain as is. Says hoping to go to friends if cannot get into [facility]. Mental Status Exam Mental Status Exam Narrative: Pt is alert and oriented; behavior is cooperative, friendly, calm; patient is not in distress; dressed in casual attire, dew rag, glasses, adequate hygiene; mood is described as good and affect congruent, brighter, though still a little blunted; eye contact appropriate; Speech is a little latent, slow; normal volume and prosody; some psychomotor retardation present; thought process is organized and goal directed; Thought content is on improved symptoms, aftercare; otherwise pertinent to relevant topics and without any delusional content, paranoid ideations or grandiosity; no SI; no HI. No AH; Patients insight and judgment fair Diagnostics Vital Signs (24Hr): Vital Signs - 24 hr 05/30/24 19:46 05/31/24 08:00 Temperature 97.9 F 97.1 F Pulse Rate 77 61 Respiratory Rate 16 16 Blood Pressure 131/89 123/80 Pulse Oximetry 99 99 Oxygen Delivery Method Room Air Room Air BMI result Body Mass Index 28.8 Labs 05/23/24 12:49 05/25/24 08:29 Medications Medications Current Medications Acetaminophen (Acetaminophen 325 Mg Tablet) 650 mg PO Q6H PRN PRN Reason: Headache/Pain Mild Scale (1-3) Al Hydroxide/Mg Hydroxide (Magnesium Hydrox/Alum Hydrox 30 Ml Oral.Susp) 30 ml PO Q6H PRN PRN Reason: Heartburn/Nausea Baclofen (Baclofen 10 Mg Tablet) 10 mg PO BID [facility] Last Admin: 05/31/24 08:32 Dose: 10 mg Bupropion HCl (Bupropion Hcl Xl 300 Mg Tab.Er.24h) 300 mg PO DAILY [facility] Last Admin: 05/31/24 08:32 Dose: 300 mg Clonidine HCl (Clonidine Hcl 0.1 Mg Tablet) 0.1 mg PO Q4H PRN; Protocol PRN Reason: anxiety Clonidine HCl (Clonidine Hcl 0.1 Mg Tablet) 0.1 mg PO BEDTIME LAUREN; Protocol Last Admin: 05/30/24 19:55 Dose: 0.1 mg Escitalopram Oxalate (Escitalopram Oxalate 20 Mg Tablet) 20 mg PO DAILY LAUREN Last Admin: 05/31/24 08:32 Dose: 20 mg Haloperidol (Haloperidol 5 Mg Tablet) 15 mg PO BEDTIME LAUREN Last Admin: 05/30/24 19:56 Dose: 15 mg Hydroxyzine HCl (Hydroxyzine Hcl 25 Mg Tablet) 25 mg PO Q6H PRN PRN Reason: Anxiety Last Admin: 05/30/24 19:56 Dose: 25 mg Magnesium Hydroxide (Milk Of Magnesia 30 Ml Oral.Susp) 30 ml PO DAILY PRN PRN Reason: Constipation Nicotine (Nicotine 21 Mg Patch.Td24) 21 mg TRANSDERMA DAILY PRN PRN Reason: nicotine cravings Nicotine Polacrilex (Nicotine Polacrilex 2 Mg Gum) 4 mg BUCCAL Q2H PRN PRN Reason: Nicotine Cravings Trazodone HCl (Trazodone Hcl 50 Mg Tablet) 150 mg PO BEDTIME LAUREN Last Admin: 05/30/24 19:55 Dose: 150 mg Allergies Allergies Allergy/AdvReac Type Severity Reaction Status Date / Time No Known Allergies Allergy Verified 05/23/24 12:40 [No Known Allergies*] Assessment & Plan Assessment & Plan (1) Schizoaffective disorder, depressive type: Status: Acute Code(s): F25.1 - Schizoaffective disorder, depressive type (2) PTSD (post-traumatic stress disorder): Status: Acute Code(s): F43.10 - Post-traumatic stress disorder, unspecified (3) Cocaine use disorder: Status: Acute Code(s): F14.10 - Cocaine abuse, uncomplicated (4) Anxiety: Status: Acute Code(s): F41.9 - Anxiety disorder, unspecified Plan HPI: Patient is a 33-year-old male with history of schizoaffective disorder, depressed type, PTSD, crack cocaine use disorder, recently discharged from 3 weeks ago, who presents for worsening depression, psychosis in the face of going off psychiatric medications. Patient reports that he did in fact go to [place], where he says he stayed for 2 weeks but said it was not a good fit and left. Patient said that they kept people in 1 room all day long which was difficult to endure. Patient denies that he relapsed but says he stopped taking his medications (UDS negative). He reports worsening depression and continued auditory hallucinations that say to self-harm and seeing shadows that are disturbing. Patient developed SI so self presented; denies any intention or plans. Patient shared that last time he was here he minimized the extent of his psychotic symptoms and while he said Haldol did help it only slightly reduced AH; also he says he remained depressed. Patient is not sure why he was not more forthcoming other than to say it is normal for him to hide his feelings. Patient feels more comfortable now sharing and says he will be open going forward. Discussed medication management, risks/side effects and patient would like to continue with Haldol but at a higher dose Formulation/clinical reasoning: Patient has both psychotic symptoms and depression, psychotic symptoms seem to be present even when not depressed and patient reports present even when sober. Patient has had very minimal medication trials and per patient, Haldol is the 1st antipsychotic. After review of risks/side effects and other options, patient wants to remain on Haldol since it did help a little but wants an increased dose. Regarding aftercare, patient reports his mother is taking him to [place] to live with her. Hospital course: 05/26 pt reports he slept better last night and was appreciative of clonidine. Pt reports that AH and paranoid delusions (cameras in apt, people following him, watching him) are lessened with increased Haldol dose. Pt still depressed but agrees to work on psychotic symptoms which he is considering my just be his mind playing tricks on him 05/27 pt reports AH a little lower still, but remain bothersome. However, paranoid delusion remain resolved. He would like to leave Haldol where it is for now. Patient reports continued depression which is bothering him. Discussed options, risks/side effects and patient to trial of Wellbutrin; will alert telegraphic typewriter mechanic if this increases any AH 05/28 Patient reports no change; still AH which is bothersome but has decreased; still depressed. No problems or side effects with Wellbutrin and agrees to increase -vraylar also an option 05/29- feeling a little better like ah somewhat muted with med change yesterday- trouble sleeping, still down 05/30 slept better with higher dose of trazodone at bed with repeated prns will try and consolidated dosing 05/31 feeling much better; depression and anxiety both much improved and AH full resolved; no paranoia. Plan: CV Q 15 minute checks continue Wellbutrin XL 300mg; will titrate if tolerated and needed continue Haldol 15mg (started at higher dose of 15 mg q.h.s.; patient does not like divided dosing since it makes him tired) continue Lexapro 20 mg daily for depression; will consider other options, perhaps Vraylar which could possibly replace Haldol Clonidine 0.1 mg q.h.s. for anxiety/trouble sleeping Trazodone 50 mg q.h.s.; extra for p.r.n. for continued insomnia Patient educated on: diagnosis, medication risk/benefits, substance abuse and therapeutic strategies Informed Consent: understands Reason for continued inpatient stay Substantial Risk for: stable for discharge Time Spent With Patient Time: Total time managing care of this patient today ____ minutes.
[2024-05-31] MEDS: hydrOXYzine HCL 25 MG TABLET PO (16:44)
[2024-05-31 19:40] VITALS: BP 137/77; PULSE 66; RESP 17; TEMP 36.3; O2SAT 99
[2024-05-31 20:04] VITALS: BP 137/77
[2024-05-31] MEDS: cloNIDine HCL 0.1 MG TABLET PO (20:04)
[2024-05-31] MEDS: traZODone HCL 50 MG TABLET 150 MG PO (20:05)
[2024-05-31] MEDS: HaloperidoL 5 MG TABLET 15 MG PO (20:05)
[2024-06-01 09:39] VITALS: BP 107/61; PULSE 64; TEMP 36.2; O2SAT 99
[2024-06-01] MEDS: Escitalopram Oxalate 20 MG TABLET PO (10:06)
[2024-06-01] MEDS: Baclofen 10 MG TABLET PO (10:06)
[2024-06-01] MEDS: buPROPion HCl XL 300 MG TAB.ER.24H PO (10:06)
--- NOTE | 2024-06-01 11:31 | P.DS_ITS ---
DS: Providers Provider Date of Service: 06/01/24 Date of admission: 05/24/24 14:57 Date of discharge: 06/01/24 Primary care physician: Mike Alfonso PA-C DS: Diagnosis Discharge Diagnosis (1) Schizoaffective disorder, depressive type: Status: Acute (2) PTSD (post-traumatic stress disorder): Status: Acute (3) Cocaine use disorder: Status: Acute (4) Anxiety: Status: Acute DS: Medications Discharge Medications Home Medications: Previous Rx's ?Medication ?Instructions ?Recorded baclofen 10 mg tablet 10 mg PO BID 90 days #180 tabs 06/01/24 bupropion HCl 300 mg 24 hr tablet, 300 mg PO DAILY 90 days #90 tabs 06/01/24 extended release clonidine HCl 0.1 mg tablet 0.1 mg PO Q4H PRN anxiety/insomnia 06/01/24 90 days #120 tabs escitalopram oxalate 20 mg tablet 20 mg PO DAILY 90 days #90 tabs 06/01/24 haloperidol 10 mg tablet 15 mg (1.5 x 10 mg) PO BEDTIME 90 06/01/24 days #135 tabs hydroxyzine HCl 25 mg tablet 25 mg PO Q6H PRN Anxiety 90 days 06/01/24 #120 tabs trazodone 150 mg tablet 150 mg PO BEDTIME PRN insomnia 90 06/01/24 days #90 tabs Mental Status Exam Mental Status Exam Narrative: Pt is alert and oriented; behavior is cooperative, friendly, calm; patient is not in distress; dressed in casual attire, dew rag, glasses, adequate hygiene; mood is described as good and affect congruent, brighter, though still a little blunted; eye contact appropriate; Speech is a little latent, slow; normal volume and prosody; some psychomotor retardation present; thought process is organized and goal directed; Thought content is on improved symptoms, aftercare; otherwise pertinent to relevant topics and without any delusional content, paranoid ideations or grandiosity; no SI; no HI. No AH; Patients insight and judgment fair DS: Summary Hospital Course Hospital Course: HPI: Patient is a 33-year-old male with history of schizoaffective disorder, depressed type, PTSD, crack cocaine use disorder, recently discharged from 3 weeks ago, who presents for worsening depression, psychosis in the face of going off psychiatric medications. Patient reports that he did in fact go to [place], where he says he stayed for 2 weeks but said it was not a good fit and left. Patient said that they kept people in 1 room all day long which was difficult to endure. Patient denies that he relapsed but says he stopped taking his medications (UDS negative). He reports worsening depression and continued auditory hallucinations that say to self-harm and seeing shadows that are disturbing. Patient developed SI so self presented; denies any intention or plans. Patient shared that last time he was here he minimized the extent of his psychotic symptoms and while he said Haldol did help it only slightly reduced AH; also he says he remained depressed. Patient is not sure why he was not more forthcoming other than to say it is normal for him to hide his feelings. Patient feels more comfortable now sharing and says he will be open going forward. Discussed medication management, risks/side effects and patient would like to continue with Haldol but at a higher dose Formulation/clinical reasoning: Patient has both psychotic symptoms and depression, psychotic symptoms seem to be present even when not depressed and patient reports present even when sober. Patient has had very minimal medication trials and per patient, Haldol is the 1st antipsychotic. After review of risks/side effects and other options, patient wants to remain on Haldol since it did help a little but wants an increased dose. Regarding aftercare, patient reports his mother is taking him to [place] to live with her. Hospital course: 05/26 pt reports he slept better last night and was appreciative of clonidine. Pt reports that AH and paranoid delusions (cameras in apt, people following him, watching him) are lessened with increased Haldol dose. Pt still depressed but agrees to work on psychotic symptoms which he is considering my just be his mind playing tricks on him 05/27 pt reports AH a little lower still, but remain bothersome. However, paranoid delusion remain resolved. He would like to leave Haldol where it is for now. Patient reports continued depression which is bothering him. Discussed options, risks/side effects and patient to trial of Wellbutrin; will alert writer editor if this increases any AH 05/28 Patient reports no change; still AH which is bothersome but has decreased; still depressed. No problems or side effects with Wellbutrin and agrees to increase -vraylar also an option 05/29- feeling a little better like ah somewhat muted with med change yesterday- trouble sleeping, still down 05/30 slept better with higher dose of trazodone at bed with repeated prns will try and consolidated dosing 05/31 feeling much better; depression and anxiety both much improved and AH full resolved; no paranoia. Senior Painter asked about slowed movements which pt says is chronic; he does not know why but says hes used to it. Impression: Patients psychotic symptoms significantly improved on increased dose of Haldol (AH and paranoid thoughts fully resolved) and depression significantly improved with adding Wellbutrin to his lexapro. Pt feeling good, optimistic about staying sober and future oriented, [facility] until his mother picks him up on Friday (he will return with her to [facility]). Pt is not in imminent risk of harm to self or others and appropriate to return to the community for treatment. Medications: Increased Haldol to 15mg qhs Started on Wellbutrin XL 300mg Continue Lexapro 20 mg daily Continued Clonidine 0.1 mg prn Increased Trazodone 150mg Continued Baclofen for cocaine cravings Time spent discussing smoking cessation with patient: 3 to 10 minutes Status at Discharge Functional status at discharge: independent ambulation Overall status at discharge: patient is back to baseline (above former baseline) Time Spent with Patient Time attestation: Total time managing care of this patient today _40___ minutes. Time spent: Greater than 30 minutes Specific discharge activities: met with patient; discussed with team; prescriptions, charting Discharge Plan Discharge Anticipated Discharge Date/Time: 06/01/24 13:00 Patient Disposition: Residential Discharge Diagnosis: schizoaffective disorder, depressed type Referrals: Mike Alfonso PA-C [Primary Care Provider] - 1 Week Discharge Medications: New bupropion HCl 300 mg Tablet Extended Release 24 Hr 300 mg PO DAILY 90 Days Qty: 90 0RF Continued baclofen 10 mg tablet 10 mg PO BID 90 Days Qty: 180 0RF hydroxyzine HCl 25 mg Tablet 25 mg PO Q6H PRN (Reason: Anxiety) 90 Days Qty: 120 0RF escitalopram oxalate 20 mg tablet 20 mg PO DAILY 90 Days Qty: 90 0RF Changed clonidine HCl 0.1 mg Tablet 0.1 mg PO Q4H PRN (Reason: anxiety/insomnia) 90 Days Qty: 120 0RF Protocol: Hold for SBP< HOLD for SBP < : 90 trazodone 150 mg tablet 150 mg PO BEDTIME PRN (Reason: insomnia) 90 Days Qty: 90 0RF haloperidol 10 mg tablet 15 mg PO BEDTIME 90 Days Qty: 135 0RF Discharge Orders: Discharge Order (Routine); Ordered 06/01/24 Ordered By: Luan Ribeiro Diet: Regular diet Activity on Discharge: As tolerated Stand Alone Forms: Patient Portal Discharge page, Community Support Print Language: Romansh Care Plan Goals: Maintain mood and safe behaviors Take medications as prescribed Continue to pursue sobriety Practice coping skills Continue with outpatient providers and reach out to them as needed Health Concerns: Mood stability and behaviors Sobriety Plan of Treatment: Follow up with your PCP, psychiatric provider and other outpatient providers regarding above concerns Take medications as prescribed Assessment: Risk assessment at time of discharge:? Patient was interviewed prior to discharge and found to be fully oriented and without any SI or HI. Patient has improved insight and judgment and wants to continue treatment. Patient is not in imminent risk of harm to self or others and has a safety plan that includes presenting to the closest ER or calling 911 if feeling unsafe.? Patient has been observed closely by nursing and unit staff throughout admission; patient has not engaged in any behaviors that suggest dangerousness to self or others and has demonstrated appropriate behaviors and impulse control
== END 2024-06-01 12:30 | disposition home or self-care (01) | DRG 750 ==
LOC: HO.ED 05-24 14:37 → HO.PM5 05-24 15:43
PROVIDERS: Physician Assistant; Admitting Provider Clinical Nurse Specialist Psychiatric/Mental Health, Adult; Emergency Provider Emergency Medicine; PCP Physician Assistant; Visit Provider Psychiatry & Neurology Psychiatry
DX: F25.1 Schizoaffective disorder, depressive type (principal); R45.851 Suicidal ideations; Z91.148 Patient's other noncompliance with medication regimen for other reason; Z59.02 Unsheltered homelessness; F14.90 Cocaine use, unspecified, uncomplicated; Z87.891 Personal history of nicotine dependence; Z79.899 Other long term (current) drug therapy
CPT/HCPCS: 36415; 80053; 80061; 80307; 81003; 82607; 82746; 83036; 83735; 84439; 84443; 85025; 93005; 99285; S9485

== ENCOUNTER → 2024-05-24 09:28 | Outpatient (BNV) | payer OTHER, SELFPAY | PROVIDERS: Admitting Provider Clinical Nurse Specialist Psychiatric/Mental Health, Adult; Emergency Provider Emergency Medicine; PCP Physician Assistant; Visit Provider Internal Medicine Cardiovascular Disease | DX: I45.19 Other right bundle-branch block (principal); R94.31 Abnormal electrocardiogram [ECG] [EKG] | CPT/HCPCS: 93010 ==

== ENCOUNTER → 2024-05-24 14:57 | Outpatient (BNV) | payer OTHER, SELFPAY | PROVIDERS: Admitting Provider Clinical Nurse Specialist Psychiatric/Mental Health, Adult; Emergency Provider Emergency Medicine; PCP Physician Assistant; Visit Provider Psychiatry & Neurology Psychiatry | DX: F25.1 Schizoaffective disorder, depressive type (principal); F14.10 Cocaine abuse, uncomplicated; F43.11 Post-traumatic stress disorder, acute; F41.9 Anxiety disorder, unspecified | CPT/HCPCS: 90792; 99231; 99232; 99239 ==